=== PATIENT | female | born 1940 | race Caucasian/White ===

== ENCOUNTER → 2017-10-25 | Outpatient (CLI) | payer MEDICARE ==
[2014-12-31 15:00] VITALS: BP 110/56
[~2017-10-25] MED LIST: ALPR0.25 PO; ASPI-630 PO; CALC-30 PO; CETI10TA30 PO; CHOL2000 PO; DULO60CA6 PO; FLUT16SP2 NS; HYDR-2762 PO; LOSA1TAB25 PO; MAGN250T10 PO; METO-247 PO; OMEG1CAP6 PO; PANT40GR PO; POTASSIUM CHLO10 MEQ PO; SIMV20TA3 PO; TIOT18CA IH; VENTOLIN HFA18 GM INH
--- NOTE | 2017-10-25 15:44 | KCIC ---
Left Lower Extremity Venous Doppler Ultrasound Indication: Left lower extremity swelling. Comparison: None. Procedure: Color Doppler, spectral Doppler, and grayscale images with and without compression are obtained in the area of the common femoral vein, superficial femoral vein - femoral vein junction, main femoral vein (superficial femoral vein) and popliteal vein. Veins of the proximal calf are also imaged. Findings: There is normal duplex flow, color flow and compressibility of all visualized vein segments. There is no evidence of deep venous thrombosis. Impression: No evidence of left lower extremity deep venous thrombosis. Electronically signed by: Jose Caceres MD (10/25/2017 3:41 PM) [place] [id number]
== END | disposition home or self-care (01) ==
LOC: KCIC US 14:34
PROVIDERS: ATTEND Internal Medicine
DX: M79.89 Other specified soft tissue disorders (principal)
CPT/HCPCS: 93971

== ENCOUNTER → 2017-11-19 | Outpatient (CLI) | payer MEDICARE | END | disposition home or self-care (01) | LOC: KCIC 15:54 | DX: M19.012 Primary osteoarthritis, left shoulder (principal); M17.0 Bilateral primary osteoarthritis of knee; M25.761 Osteophyte, right knee; M25.712 Osteophyte, left shoulder | CPT/HCPCS: 73030; 73562 ==

== ENCOUNTER → 2017-11-24 | Outpatient (CLI) | payer MEDICARE | END | disposition home or self-care (01) | LOC: KCIC CT 12:32 | DX: G31.89 Other specified degenerative diseases of nervous system (principal); R90.82 White matter disease, unspecified | CPT/HCPCS: 70450 ==

== ENCOUNTER → 2018-11-07 | Outpatient (CLI) | payer MEDICARE ==
[2014-12-31 15:00] VITALS: BP 110/56
[~2018-11-07] MED LIST changes: -HYDR-2762 PO; +HYDR-2765 PO; +POTA10TA12 PO; -POTASSIUM CHLO10 MEQ PO
--- NOTE | 2018-11-07 16:46 | KCIC ---
3 view study of the right ankle Clinical indications: Open wound of the medial aspect of the right ankle. FINDINGS: Diffuse soft tissue swelling is seen. There is soft tissue defect of the medial aspect of the right ankle at the level of the distal tibial metaphysis. This is consistent with an open wound. No underlying lytic process is seen. No acute fracture is evident. There is mild periosteal reaction of the lateral aspect of the lateral malleolus. The mortise ankle joint is intact. Small plantar spur of the calcaneus is evident. IMPRESSION: No osteomyelitis is seen radiographically. Electronically signed by: James King MD (11/07/2018 4:42 PM) [facility]
== END | disposition home or self-care (01) ==
LOC: KCIC 15:19
PROVIDERS: ATTEND Internal Medicine
DX: S91.001D Unspecified open wound, right ankle, subsequent encounter (principal); M77.31 Calcaneal spur, right foot; R22.41 Localized swelling, mass and lump, right lower limb; X58.XXXD Exposure to other specified factors, subsequent encounter
CPT/HCPCS: 73610

== ENCOUNTER → 2018-11-08 | Outpatient (CLI) | payer MEDICARE ==
[2014-12-31 15:00] VITALS: BP 110/56
--- NOTE | 2018-11-08 16:23 | KCIC ---
Right lower extremity venous doppler ultrasound Indication: Right lower leg wound. Swelling. Technique: Color Doppler, grayscale, and spectral waveform analysis is used to evaluate the right femoral and popliteal veins. Findings: No evidence of deep venous thrombosis. Normal response to augmentation, normal compressibility and normal phasicity is demonstrated. Visualized calf veins are patent. Impression: Negative for deep venous thrombosis Electronically signed by: Jose Laboy MD (11/08/2018 4:19 PM) [facility]
== END | disposition home or self-care (01) ==
LOC: KCIC US 15:16
PROVIDERS: ATTEND Internal Medicine
DX: S81.801D Unspecified open wound, right lower leg, subsequent encounter (principal); R60.9 Edema, unspecified; X58.XXXD Exposure to other specified factors, subsequent encounter
CPT/HCPCS: 93971

== ENCOUNTER → 2018-11-09 | Outpatient (CLI) | payer MEDICARE ==
[2014-12-31 15:00] VITALS: BP 110/56
--- NOTE | 2018-11-09 17:33 | KCIC ---
Right lower extremity arterial Doppler ultrasound HISTORY: Nonhealing open wound right leg TECHNIQUE: Color Doppler, grayscale and duplex analysis performed of the right lower extremity arterial structures, from the common femoral artery through the runoff vessels. COMPARISON: None are available Findings: All velocity measurements are in centimeters per second. Mostly biphasic waveforms are identified. Right common femoral artery velocity is 272 and proximal superficial femoral artery velocity 264. Mid superficial femoral and distal superficial femoral artery velocities are 174 and 144, and popliteal artery velocity 103. The peroneal artery velocity increases, to 193. Scattered plaque is identified. IMPRESSION: 1. Mostly biphasic waveforms. Somewhat elevated velocities of the right common and superficial femoral arteries. 2. Increased velocity of the peroneal artery suggests a proximal stenosis. Electronically signed by: Jose Laboy MD (11/09/2018 5:29 PM) [facility]
== END | disposition home or self-care (01) ==
LOC: KCIC US 11:04
PROVIDERS: ATTEND Internal Medicine
DX: S81.801D Unspecified open wound, right lower leg, subsequent encounter (principal); I70.201 Unspecified atherosclerosis of native arteries of extremities, right leg; Z87.891 Personal history of nicotine dependence; X58.XXXD Exposure to other specified factors, subsequent encounter
CPT/HCPCS: 93926

== ENCOUNTER → 2019-04-10 | Outpatient (CLI) | payer MEDICARE ==
[2014-12-31 15:00] VITALS: BP 110/56
--- NOTE | 2019-04-11 09:49 | KCIC ---
EXAM: PA and Lateral Views of the Chest DATE: 04/10/2019 12:00 AM INDICATION: COPD, history of breast cancer COMPARISON: No Prior FINDINGS: Heart is not enlarged. Aorta is mildly tortuous. Emphysematous changes are seen bilaterally. 4 mm nodule projecting of the right lower lung can be correlated with prior CT if available.No pleural effusion or pneumothorax. Mild wedging deformity of a lower thoracic vertebral body, age-indeterminate compression fracture. IMPRESSION: 1. Emphysematous changes are seen. 2. Nodule projecting over the right lower lung can be correlated with prior CTs available. Otherwise further evaluation with CT is recommended. 3. No lobar consolidation. Electronically signed by: Juan Pablo Man MD (04/10/2019 4:49 PM) [facility]
== END | disposition home or self-care (01) ==
LOC: KCIC 13:32
PROVIDERS: ATTEND Internal Medicine
DX: J43.9 Emphysema, unspecified (principal); R91.1 Solitary pulmonary nodule; M43.8X4 Other specified deforming dorsopathies, thoracic region; Z85.3 Personal history of malignant neoplasm of breast
CPT/HCPCS: 71046

== ENCOUNTER → 2021-04-04 | Outpatient (CLI) | payer MEDICARE ==
[2014-12-31 15:00] VITALS: BP 110/56
[~2021-04-04] MED LIST changes: +SIMV20TA18 PO; -SIMV20TA3 PO
--- NOTE | 2021-04-04 10:26 | KCIC ---
CHEST CT WITHOUT CONTRAST-CT low-dose lung screening CLINICAL INDICATIONS: Smoker for 50 years. COPD/emphysema. Lung cancer screening. TECHNIQUE: Noncontrast helical CT scanning of the chest was performed. Without IV contrast, the sensi tivity to detect organ pathology is decreased. PQRS compliance Statement One or more of the following individualized dose reduction techniques were utilized for this study: 1. Automated exposure control 2. Adjustment of the mA and/or kV according to patient size 3. Use of iterative reconstruction technique COMPARISON: Chest CT dated September 13, 2012. FINDINGS: There is a new finding of a 19 mm precarinal lymph node. Calcified lymph nodes are seen wit hin the right hilum due to old granulomatous disease. The left breast is surgically absent. No enlarg ed axillary lymphadenopathy is seen. No focal aneurysmal dilatation of the thoracic aorta is seen. He art size is normal and no pericardial effusion is seen. On series 6 and image 180, there is a 6 mm no ncalcified lung nodule within the lateral segment right middle lobe. This is unchanged. On image 128 , there is a small lung nodule seen within the medial posterior right lower lobe measuring 5 mm which is unchanged. On image 149, there is a noncalcified lung nodule measuring 4 mm. This was seen previo usly and is unchanged. On 186, there is a 5 mm lung nodule within the posterior medial aspect of the right lower lobe adjacent to the spine which was seen previously and is unchanged. This is consistent with benign lung nodules since they have been present over 2 years. Calcified granulomas of the righ t lower lobe are seen. No new lung nodules or lung consolidation is seen. Bilateral centrilobular emp hysema is seen. The proximal bronchial tree is patent. There is a moderate compression fracture of T1 0 and this was seen on a previous chest x-ray dated April 10, 2019 and is old. No lytic process is seen . No adrenal mass is seen. IMPRESSION: No new lung nodule. Benign lung nodules. Lung RADS category 2. Annual screening study is recommended. Electronically signed by: James King MD (04/04/2021 10:23 AM) [id number]
== END ==
LOC: KCIC CT 08:52
PROVIDERS: ATTEND Internal Medicine Pulmonary Disease
DX: Z12.2 Encounter for screening for malignant neoplasm of respiratory organs (principal); J43.2 Centrilobular emphysema; R91.8 Other nonspecific abnormal finding of lung field; J84.10 Pulmonary fibrosis, unspecified; M48.54XD Collapsed vertebra, not elsewhere classified, thoracic region, subsequent encounter for fracture with routine healing; Z87.891 Personal history of nicotine dependence
CPT/HCPCS: 71271

== ENCOUNTER → 2021-08-29 | Outpatient (CLI) | payer MEDICARE ==
[2014-12-31 15:00] VITALS: BP 110/56
[~2021-08-29] MED LIST changes: -DULO60CA6 PO; +DULO60CA7 PO
--- NOTE | 2021-08-29 17:02 | KCIC ---
EXAM: Chest and left ribs, 4 views. HISTORY: Pain. COMPARISON: None. FINDINGS: A frontal view of the chest and 3 views of the left ribs are obtained. There are chronic ap pearing interstitial changes. There is linear lingular opacity likely due to atelectasis, infiltrate or scarring. There are calcified granulomas. The heart is normal in size. No acute fracture is seen. There is thoracolumbar scoliosis. There are cholecystectomy clips. IMPRESSION: 1. Lingular atelectasis, interstitial infiltrate or scarring. 2. No acute osseous finding. Electronically signed by: Emily Cabral MD (08/29/2021 5:00 PM) [id number]
== END ==
LOC: KCIC 16:15
PROVIDERS: ATTEND Internal Medicine
DX: J98.11 Atelectasis (principal); J84.10 Pulmonary fibrosis, unspecified; M41.85 Other forms of scoliosis, thoracolumbar region; Z90.49 Acquired absence of other specified parts of digestive tract
CPT/HCPCS: 71101

== ENCOUNTER 2021-10-15 13:15 | Inpatient (IN) | payer MEDICARE ==
[~2021-10-15] VITALS: Ht 172.7 cm; Wt 90.2 kg
[~2021-10-15 13:15] MED LIST changes: -CETI10TA30 PO; +CETI10TA31 PO
--- NOTE | 2021-10-15 13:55 | PHYS DOC ---
Past Medical History Past Medical History: Cancer, COPD, Hypertension Additional Past Medical Histor: TREMOR Past Surgical History: Cancer Surgery Additional Past Surgical Histo: BREAST, COLORECTAL Smoking Status: Never Smoker Alcohol Use: None Drug Use: None General Adult EDM: Chief Complaint: WEAKNESS/GENERALIZED HPI: HPI: Patient is an 81-year-old female that presents today for increased weakness over the last 2 weeks. Patient is not a very good historian due to be her being hard of hearing but the story that I can gather is that she lives at home with her son and over the last 2 weeks she has had increased weakness. She does have a history of COPD and is oxygen dependent at home at 2 L per nasal cannula. Patient does states that she has a history of emphysema and cancer. Patient denies chest pain, does report feeling chilled at home and having increased shortness of breath at home. Patient does state that she has received 2 Covid vaccine she is unsure of what kind or when those occurred Review of Systems: Review of Systems: Constitutional: Denies fever or chills. [] Eyes: Denies change in visual acuity. [] HENT: Denies nasal congestion or sore throat. [] Respiratory: shortness of breath. [] Cardiovascular: Denies chest pain or edema. [] GI: Denies abdominal pain, nausea, vomiting, bloody stools or diarrhea. [] : Denies dysuria. [] Musculoskeletal: Denies back pain or joint pain. [] Integument: Denies rash. [] Neurologic: Generalized weakness Endocrine: Denies polyuria or polydipsia. [] Lymphatic: Denies swollen glands. [] Psychiatric: Denies depression or anxiety. [] Heart Score: C/O Chest Pain: N/A Risk Factors: Risk Factors: DM, Current or recent (<one month) smoker, HTN, HLP, family history of CAD, obesity. Risk Scores: Score 0 - 3: 2.5% MACE over next 6 weeks - Discharge Home Score 4 - 6: 20.3% MACE over next 6 weeks - Admit for Clinical Observation Score 7 - 10: 72.7% MACE over next 6 weeks - Early Invasive Strategies Allergies: Allergies: Allergies Coded Allergies Type Severity Reaction Last Updated Verified No Known Drug Allergies 12/23/14 No Physical Exam: PE: Constitutional: moderate distress, elderly female experiencing chills [] HENT: Normocephalic, atraumatic, bilateral external ears normal, oropharynx moist, no oral exudates, nose normal. [] Eyes: PERRLA, EOMI, conjunctiva normal, no discharge. [] Neck: Normal range of motion, no tenderness, supple, no stridor. [] Cardiovascular:Heart rate regular rhythm, no murmur [] Lungs & Thorax: Bilateral breath sounds audible wheezes inspiration expiration noted. [] Abdomen: Bowel sounds hypoactive, soft, no tenderness, no masses, no pulsatile masses. [] Skin: Warm, dry, no erythema, no rash. [] Back: No tenderness, no CVA tenderness. [] Extremities: No tenderness, no cyanosis, no clubbing, ROM intact, no edema. [] Neurologic: Alert and oriented X 3, normal motor function, normal sensory function, no focal deficits noted, hard of hearing. [] Psychologic: Affect normal, judgement normal, mood normal. [] Current Patient Data: Labs: Laboratory Tests Test 10/15/21 13:25 10/15/21 13:50 White Blood Count 3.0 x10^3/uL Red Blood Count 4.16 x10^6/uL Hemoglobin 11.5 g/dL Hematocrit 35.8 % Mean Corpuscular Volume 86 fL Mean Corpuscular Hemoglobin 28 pg Mean Corpuscular Hemoglobin Concent 32 g/dL Red Cell Distribution Width 13.9 % Platelet Count 117 x10^3/uL Neutrophils (%) (Auto) 55 % Lymphocytes (%) (Auto) 26 % Monocytes (%) (Auto) 18 % Eosinophils (%) (Auto) 0 % Basophils (%) (Auto) 1 % Neutrophils # (Auto) 1.7 x10^3/uL Lymphocytes # (Auto) 0.8 x10^3/uL Monocytes # (Auto) 0.6 x10^3/uL Eosinophils # (Auto) 0.0 x10^3/uL Basophils # (Auto) 0.0 x10^3/uL Platelet Estimate Pending Sodium Level 140 mmol/L Potassium Level 4.0 mmol/L Chloride Level 103 mmol/L Carbon Dioxide Level 29 mmol/L Anion Gap 8 Blood Urea Nitrogen 14 mg/dL Creatinine 0.8 mg/dL Estimated GFR (Cockcroft-Gault) 68.5 BUN/Creatinine Ratio 18 Glucose Level 96 mg/dL Lactic Acid Level 0.6 mmol/L Calcium Level 8.3 mg/dL Total Bilirubin 0.4 mg/dL Aspartate Amino Transf (AST/SGOT) 32 U/L Alanine Aminotransferase (ALT/SGPT) 27 U/L Alkaline Phosphatase 70 U/L Troponin I High Sensitivity 22 ng/L [id number]-Type Natriuretic Peptide 752 pg/mL Total Protein 6.0 g/dL Albumin 3.0 g/dL Albumin/Globulin Ratio 1.0 Influenza Type A Antigen Negative Influenza Type B Antigen Negative SARS-CoV-2 Antigen (Rapid) Positive Vital Signs: Vital Signs Date Time Temp Pulse Resp B/P (MAP) Pulse Ox O2 Delivery O2 Flow Rate FiO2 10/15/21 22:31 98.5 18 18 177/62 (100) 98 Room Air 98.5 10/15/21 20:00 Nasal Cannula 2.0 10/15/21 19:00 98.6 84 18 157/64 (95) 96 Room Air 98.6 10/15/21 15:22 82 22 171/72 (105) 97 Nasal Cannula 2.0 10/15/21 14:45 76 26 175/75 (108) 98 Nasal Cannula 2.0 10/15/21 14:18 81 24 182/73 (109) 96 2.0 10/15/21 13:15 99.0 85 22 179/81 (113) 96 Room Air 99.0 Vital Signs Date Time Temp Pulse Resp B/P (MAP) Pulse Ox O2 Delivery O2 Flow Rate FiO2 10/15/21 13:15 99.0 85 22 179/81 (113) 96 Room Air 99.0 EKG: EKG: [] Radiology/Procedures: Radiology/Procedures: REASON: SOA PROCEDURE: CHEST AP ONLY Exam Date: 10/15/2021 1:57 PM XR CHEST 1V Indication: Reason: SOA / Spl. Instructions: / History: . Comparison: August 29, 2021 FINDINGS/ IMPRESSION: The aorta is calcified. The cardiac silhouette is borderline enlarged without congestion. Prominent interstitial markings are again seen bilaterally, likely chronic. Superimposed interstitial edema or pneumonia cannot be excluded. No pleural effusion or pneumothorax. Electronically signed by: Barndon Gray MD (10/15/2021 2:44 PM) [facility] Course & Med Decision Making: Course & Med Decision Making Pertinent Labs and Imaging studies reviewed. (See chart for details) 1500 spoke to nursing staff patient is unable to take care of herself she is needing total assistance with the nursing staff today because she is too weak from her illness. We will contact Dr. Rios for admission and medical management [id number] Rios and he is agreeable with admission to the hospital Drag Disclaimer: Patrica Disclaimer: This electronic medical record was generated, in whole or in part, using a voice recognition dictation system. Departure Departure Impression: Primary Impression: COVID-19 Additional Impressions: COPD exacerbation Weakness Disposition: ADMITTED INPATIENT Condition: GUARDED Referrals: MERON RIOS MD (PCP) JULY WRIGHT TRAFFIC CONTROL OFFICER Oct 15, 2021 13:55
[2021-10-15 14:02] LABS: BASO % 1 % (0-3); EOS % 0 % (0-3); HEMATOCRIT 35.8 % (36.0-47.0); HEMOGLOBIN 11.5 g/dL (12.0-15.5); LYMPH # 0.8 x10^3/uL (1.0-4.8); LYMPH % 26 % (24-48); MEAN CORPUSCULAR HEMOGLOBIN 28 pg (25-35); MEAN CORPUSCULAR HGB CONC 32 g/dL (31-37); MEAN CORPUSCULAR VOLUME 86 fL (79-100); MONO # 0.6 x10^3/uL (0.0-1.1); MONO % 18 % (0-9); NEUT # 1.7 x10^3/uL (1.8-7.7); NEUT % 55 % (31-73); PLATELET COUNT 117 x10^3/uL (140-400); RED BLOOD COUNT 4.16 x10^6/uL (3.50-5.40); RED CELL DISTRIBUTION WIDTH 13.9 % (11.5-14.5)
[2021-10-15 14:08] LABS: CALCIUM 8.3 mg/dL (8.5-10.1); CREATININE 0.8 mg/dL (0.6-1.0); GFR 68.5
[2021-10-15 14:14] LABS: TOTAL BILIRUBIN 0.4 mg/dL (0.2-1.0)
[2021-10-15 14:20] LABS: INFLUENZA A PATIENT NEGATIVE (NEGATIVE); INFLUENZA B PATIENT NEGATIVE (NEGATIVE)
--- NOTE | 2021-10-15 14:46 | RAD ---
Exam Date: 10/15/2021 1:57 PM XR CHEST 1V Indication: Reason: SOA / Spl. Instructions: / History: . Comparison: August 29, 2021 FINDINGS/ IMPRESSION: The aorta is calcified. The cardiac silhouette is borderline enlarged without congestion. Prominent interstitial markings ar e again seen bilaterally, likely chronic. Superimposed interstitial edema or pneumonia cannot be exc luded. No pleural effusion or pneumothorax. Electronically signed by: Brandon Gray MD (10/15/2021 2:44 PM) [facility]
--- NOTE | 2021-10-15 15:25 | EKG ---
[facility] [address] [place] [address] Test Date: 2021-10-15 Test Time: 13:51:49 Pat Name: DAISY FORREST Department: Room: Gender: F Security Tester: : 1940 Requested By: JULY WIRGHT Order Number: [id number] Reading MD: David Aguirre Measurements Intervals Rolfe Rate: 83 P: 51 CO: 174 QRS: 2 QRSD: 120 T: 91 QT: 366 QTc: 436 Interpretive Statements SINUS RHYTHM QRS(T) CONTOUR ABNORMALITY NONSPECIFIC ST T WAVE CHANGES SEPTAL INFARCT Electronically Signed On 10-20-2021 10:47:36 PROCESS DESIGNER by David Aguirre
[2021-10-15] MEDS ORDERED: DEXAMETHASONE SOD PHOS 20 MG/5 ML VIAL. IV ONE (15:30)
[2021-10-15] MEDS ORDERED: ACETAMINOPHEN 325 MG TABLET. PO PRN (15:45)
[2021-10-15 16:11] LABS: % ATYL 1 % (0-0); % BANDS 15 % (0-9); % LYMPHS 21 % (24-48); % MONOS 13 % (0-10); % SEGS 50 % (35-66)
[2021-10-15 16:12] LABS: PLT ESTIMATE DECREASED (ADEQUATE)
[2021-10-15 19:00] VITALS: BP 157/64
--- NOTE | 2021-10-15 19:04 | NUR ---
The patient, DAISY FORREST, 81 y/o, F admitted by MERON RIOS MD, was given written information regarding hospital policies, unit procedures and contact persons. Valuables were checked and left in room.
[2021-10-15 22:31] VITALS: BP 177/62
[2021-10-16 03:08] VITALS: BP 199/68
[2021-10-16 07:00] VITALS: BP 186/78
[2021-10-16] MEDS ORDERED: NON FORMULARY ITEM (Albuterol Sulfate (Ventolin Hfa Inhaler) 2 PUFF) INH PRN (09:00)
[2021-10-16] MEDS ORDERED: OMEGA-3 FATTY ACIDS/FISH OIL 1,000 MG CAPSULE. PO SCH (09:00)
[2021-10-16] MEDS ORDERED: NON FORMULARY ITEM (Losartan/Hydrochlorothiazide (Losartan-Hctz 100-12.5 Mg Tab) 1 EACH) PO SCH (09:00)
[2021-10-16] MEDS ORDERED: FLUTICASONE 50MCG/NASAL SPRAY 16GM BOTTLE. NS PRN (09:00)
[2021-10-16] MEDS ORDERED: ALBUTEROL SULFATE 2.5 MG/3 ML NEBU. NEB PRN (09:15)
[2021-10-16] MEDS: ASPIRIN CHEWABLE 81 MG TABLET. PO SCH (09:50)
[2021-10-16] MEDS: hydroCHLOROthiazide 12.5 MG CAPSULE PO SCH (09:55)
[2021-10-16] MEDS: ALPRAZolam 0.25 MG TABLET PO SCH ×2 (09:55→20:01)
[2021-10-16] MEDS: CALCIUM CARB/VIT D3 500/200 TABLET. PO SCH (09:56)
[2021-10-16] MEDS: LOSARTAN POTASSIUM 50 MG TABLET. PO SCH (09:56)
[2021-10-16] MEDS: DULoxetine HCL 30 MG CAPSULE.DR PO SCH (09:57)
[2021-10-16] MEDS: POTASSIUM CHLORIDE 10 MEQ TABLET.ER. PO SCH (09:57)
[2021-10-16] MEDS: CETIRIZINE HCL 10 MG TABLET. PO SCH (09:58)
[2021-10-16] MEDS: MAGNESIUM OXIDE 400 MG TABLET PO SCH ×2 (09:58→20:02)
[2021-10-16] MEDS: PANTOPRAZOLE 40 MG TABLET.DR. PO SCH (09:58)
[2021-10-16] MEDS: CHOLECALCIFEROL (VITAMIN D3) 1,000 UNIT TABLET PO SCH (09:58)
--- NOTE | 2021-10-16 10:02 | CONS ---
DATE OF CONSULTATION: 10/16/2021 PULMONARY CONSULTATION ATTENDING PHYSICIAN: Tory Henley MD. REASON FOR CONSULTATION: COVID-19 pneumonia. HISTORY OF PRESENT ILLNESS: The patient is an 81-year-old female who has a history of COPD. She is on home oxygen at 2 liters. She was brought into the hospital with complaint of increased weakness for the last 2 weeks. She denies any chest pain. She has no significant cough, no fever, no chills. She was having some mild shortness of breath. She said she did receive COVID vaccine. No nausea, vomiting, no diarrhea, no dysuria. Her COVID test came back positive. Her chest x-ray was reviewed, shows slightly faint interstitial infiltrates. RN has just reported that she also has positive blood cultures. PAST MEDICAL HISTORY: Significant for COPD, history of chronic hypoxic respiratory failure. Dyslipidemia. History of GERD. PAST SURGICAL HISTORY: No recent surgeries. ALLERGIES: None. MEDICATIONS: Reviewed as listed in the MRAD. REVIEW OF SYSTEMS: A 12-point review of system obtained. Pertinent positives discussed in my present illness, otherwise noncontributory. All systems that were negative were reviewed as well. She is very hard of hearing. SOCIAL HISTORY: Has history of tobacco use in the past, no longer smokes. FAMILY HISTORY: Noncontributory to lungs. PHYSICAL EXAMINATION: VITAL SIGNS: Reviewed. She is afebrile. Pulse ox is 99% on room air. Visual exam done due to COVID-19. Blood pressure has been high, last systolic was 186. No obvious respiratory distress. EXTREMITIES: No leg edema, no skin rash. LABORATORY DATA: Reviewed. COVID-19 is positive. BUN and creatinine normal. White cell count 3.0, hemoglobin 11.5 and platelets are 117. Blood cultures 1/4 positive for gram-positive rods. Branching filaments. IMPRESSION: 1. Dyspnea secondary to COVID-19 viral pneumonia. 2. The patient with chronic obstructive pulmonary disease, on home oxygen at 2 liters. Oxygen requirement has not changed. At this time, we will withhold any steroids. 3. Bacteremia. Await final cultures. Infectious Disease has been consulted. 4. History of chronic obstructive pulmonary disease. 5. Abnormal chest x-ray with faint interstitial infiltrates suggestive of COVID-19 viral pneumonia. RECOMMENDATIONS: 1. We will continue to monitor respiratory status. At present, she is compensated at the baseline oxygen at 2 liters. 2. We will withhold steroids at present until oxygen requirement changes. 3. Continue DuoNebs. 4. Follow final blood cultures. 5. Follow Infectious Disease recommendations. 6. Continue home medications. 7. Add DVT prophylaxis. 8. Discussed with RN. Pulmonary status is stable. We will follow as needed. ECHO DR: Odalys TID: [id number]
[2021-10-16] MEDS: ENOXAPARIN 40 MG/0.4 ML SYRINGE. SQ SCH (10:14)
[2021-10-16] MEDS: OMEGA-3 FATTY ACIDS/FISH OIL 1,000 MG CAPSULE. PO SCH (10:18)
[2021-10-16] MEDS: METOPROLOL SUCC 24HR ER 100 MG TAB.ER.24H. PO SCH (10:20)
[2021-10-16] MEDS: IPRATROPIUM/ALBUTEROL 20/100mcg/INH INHALER. INH SCH ×3 (10:21→20:02)
[2021-10-16] MEDS: HYDROcodone/APAP 7.5/325MG 1 TAB TABLET PO PRN (10:22)
[2021-10-16 11:00] VITALS: BP 191/81
--- NOTE | 2021-10-16 11:19 | PDOC ---
Provider Note Date of Service: DATE: 10/16/21 TIME: 11:18 Provider Note H&P dictated #[id number] Justifications for Admission Other Justification MERON RIOS MD Oct 16, 2021 11:19
--- NOTE | 2021-10-16 11:37 | CONS ---
DATE OF CONSULTATION: 10/16/2021 REFERRING PHYSICIAN: Dr. Henley. REASON FOR CONSULTATION: Bacteremia, antibiotic management. HISTORY OF PRESENT ILLNESS: An 81-year-old female who had received two doses of COVID vaccine was supposed to get her booster dose presented to the ER on 10/15/2021 with increased weakness and myalgia over the last week. The patient is hard of hearing. She is not a good historian. The patient had been to her niece's 2 days prior, but continued to feel weak as above. Her son insisted on bringing the patient to the ER. She has a history of COPD, on O2 at 2 liters nasal cannula at home. She had some shortness of breath, headache, some soreness in her neck glands. She also has diarrhea, which is chronic, decreased appetite. No sick contact, no recent travel. She denies any fevers, chills, symptoms. White count in the ER was 3.0, hemoglobin of 11.5, platelets of 117, bands of 15, lymphopenia. BNP of 752. Influenza screen negative. SARS-COVID positive. Chest x-ray revealed prominent interstitial markings. Blood cultures done on admission, 1 out of 4 bottles has gram-positive rods with branching filaments. ID consultation is requested for further evaluation and treatment. The patient is currently on no antibiotics. Today, she feels the same. Does not feel like eating. Continues to have generalized aches and pain. She remains on 2 liters O2 by nasal cannula. PAST MEDICAL HISTORY: COPD, history of hypoxic respiratory failure, hyperlipidemia, GERD. SURGICAL HISTORY: None. ALLERGIES: None. SOCIAL HISTORY: Denies smoking, though had history of tobacco use in the past. No alcohol. Lives with her family. REVIEW OF SYSTEMS: Negative except for above in the HPI. The patient has severe hearing loss. FAMILY HISTORY: As per HPI. PHYSICAL EXAMINATION: VITAL SIGNS: Temperature 98.4, pulse 67, respiratory rate 18, blood pressure 186/78, oxygen saturation 99% on 2 liters O2 by nasal cannula. GENERAL: Alert, oriented x 3 female, hard of hearing, lying in bed comfortably, appears tired. HEENT: Normocephalic, atraumatic. Anicteric. NECK: Supple, no JVD, no lymphadenopathy. LUNGS: Decreased breath sounds at the bases. No wheezing. HEART: S1, S2. No murmurs. ABDOMEN: Soft, obese. Bowel sounds present, nontender, nondistended. EXTREMITIES: No edema, no cyanosis. DERMATOLOGIC: Warm, dry, no generalized rash. NEUROLOGIC: Alert, oriented x 3, grossly nonfocal. Hard of hearing. PSYCHIATRIC: Appropriate, calm. LABORATORY DATA: SARS-COVID rapid positive. Influenza screen negative. WBC 3.0, hemoglobin 11.5, hematocrit 35.8, platelets 117, bands 15. Sodium 140, potassium 4.0, chloride 103, bicarb 29, BUN 14, creatinine 0.8. Lactate 0.6, calcium 8.3. BNP 752. IMAGING: Chest x-ray shows prominent interstitial markings, likely chronic bilaterally. IMPRESSION: 1. Bacteremia, GPR with filaments, 1 out of 4 bottles present on admission, final ID and JOSE pending, differential diagnosis could be rare bacterial infection with Nocardia versus Actinomyces versus contamination. 2. Dyspnea, likely from COVID-19 pneumonia. 3. Chronic obstructive pulmonary disease, chronic respiratory failure, on home O2 at 2 liters unchanged at this time. 4. Leukopenia. 5. Bandemia. 6. Generalized weakness and myalgias. RECOMMENDATIONS: 1. Start Zosyn and Bactrim. 2. Monitor renal functions closely. 3. Continue supportive care. 4. Pulmonary team following. 5. Repeat blood cultures in a.m. D/W RN Thank you, Dr. Henley, for consulting Infectious Disease to participate in this patient's care. If you have any questions, do not hesitate to contact me. SANJEEV/YANET DONALDSON: Gilles TID: [id number] [facility]
--- NOTE | 2021-10-16 12:19 | HP ---
DATE OF SERVICE: 10/16/2021 ADMIT DATE: 10/15/2021 HISTORY OF PRESENT ILLNESS: This 81-year-old female who has multiple medical problems including COPD, emphysema, gastroesophageal reflux disease, hypertension, diabetes, dementia, worsening tremors and who was seen in my office 2 weeks ago for management of her chronic pain and arthritis, started getting sick this weekend about 5 days ago. She started having cough and congestion when they called our office. At the beginning of the week, she was advised to go to the emergency room, but she did not want to go, so she came to the hospital yesterday because of cough, congestion and dyspnea getting worse. She was noted to be COVID positive. She is vaccinated, but has not taken the booster injection yet. At home, she is on 2 liters of oxygen for chronic respiratory failure secondary to COPD. Because of the COVID-19 infection with exacerbation of COPD and respiratory failure and with her multiple medical problems, the patient was admitted for further evaluation and management. The patient states that she does not taste food well. She is not sure who she was exposed to, although over the weekend, she did attend the of her cousin who had COVID infection. She is forgetful and not a good historian and unable to provide complete information. SYSTEMS REVIEW: The patient does admit to occasional cough. She denies any fever, chills, nausea or vomiting. She does not taste food well. She denies any chest pains, palpitations or dizziness. She has chronic weakness, joint pains and tremors. She is a poor historian. Other systems reviewed and are negative. PAST MEDICAL HISTORY: The patient has history of hypertension with chronic kidney disease, diabetes mellitus type 2, hyperlipidemia, peripheral artery disease, carotid artery disease, COPD, emphysema, chronic bronchitis, gastroesophageal reflux disease, gastritis, peptic ulcer disease, hiatal hernia, diverticulosis, rectal cancer in 1992, cancer of the breast, anxiety and depression, history of compression fracture lower thoracic and upper lumbar spine, arthritis, allergic rhinitis, hypothyroidism, urinary incontinence. PAST SURGICAL HISTORY: Includes breast biopsy, benign tumor x 2, left mastectomy, colon resection in 1992. She has peripheral artery disease, multinodular goiter, osteoarthritis, depression, anxiety, chronic pain, urinary incontinence. FAMILY HISTORY: Brother had lung cancer, . Brother had prostate cancer. Father, lung cancer, . SOCIAL HISTORY: , lives with son. History of smoking. No history of alcoholism or drug abuse. ALLERGIES: AMOXICILLIN CAUSES DIARRHEA, ACTUALLY IT WAS BECAUSE OF THE AUGMENTIN. SHE HAS ALLERGIES TO CODEINE, CHANTIX THAT CAUSED DEPRESSION, AGITATION AND ANXIETY. MEDICATIONS: Reviewed and reconciled. PHYSICAL EXAMINATION: VITAL SIGNS: Temperature 98.5, pulse 68 per minute, respirations 16 per minute, blood pressure max was 199/68, then it was 191/81 mmHg. GENERAL: The patient is an elderly female who is alert, oriented, but forgetful, anxious and not in acute distress. EYES: Pupils reactive to light. Conjunctivae pale. Sclerae muddy. HENT: Mild congestion of throat. The patient is wearing oxygen by nasal cannula 2 liters per minute. NECK: Supple. JVP normal. No thyromegaly. Trachea midline. LUNGS: Decreased breath sounds at bases. CARDIOVASCULAR: S1, S2, regular. ABDOMEN: Soft, nontender, no guarding, no rigidity. Bowel sounds present. EXTREMITIES: No edema, no cyanosis, no calf tenderness. CENTRAL NERVOUS SYSTEM: Alert and oriented, forgetful and anxious. Generalized weakness. LABORATORY FINDINGS: Sodium 140, potassium 4, BUN 14, creatinine 0.8, albumin 3, AST 32, ALT 27. BNP is 752. WBC count 3, hemoglobin 11.5, platelet count is 117,000. Chest x-ray shows prominent interstitial markings, likely chronic superimposed interstitial edema or pneumonia cannot be excluded. No pleural effusion or pneumothorax. Blood culture 1 out of 4 shows gram-positive rods with branching filaments. IMPRESSION: 1. COVID-19 pneumonia. 2. Sepsis with abnormal blood culture. 3. Acute on chronic respiratory failure. 4. Chronic obstructive pulmonary disease exacerbation. 5. Hypertension. 6. Diabetes mellitus type 2. 7. Peripheral artery disease. 8. Gastroesophageal reflux disease. 9. Hypothyroidism and high thyroid goiter. 10. History of hiatal hernia. 11. History of gastritis. 12. History of colon cancer and breast cancer. 13. Dementia. 14. Tremors. 15. Anxiety. 16. Depression. 17. Osteoarthritis and chronic pain. PLAN: 1. COVID-[address] Dorsey. The patient's oxygen requirements have not changed, so he does not feel that she needs more steroids at this time. She was given a dose of steroid in the emergency room. Continue observation. 2. Possible sepsis with gram-positive rods with branching filaments. Consulted Dr. Meagan Sanz for Infectious Disease evaluation and management. The patient has been started on IV Zosyn and Bactrim DS. 3. Diabetes mellitus type 2. Continue to monitor. 4. Hypertension, not controlled. We will order IV p.r.n. hydralazine. 5. Osteoarthritis. Continue pain medications. For details, please refer to the orders. Long-term as well as short-term prognosis of this patient is very poor due to her multiple medical problems. EDITH/NIS DR: EDITH/adelina TID: [id number]
[2021-10-16] MEDS ORDERED: IPRATRPIUM/ALBUTEROL 0.5/2.5MG 3 ML NEBU. NEB SCH (13:00)
[2021-10-16] MEDS: PIPERACILLIN/TAZOBACTAM 3.375 GM in IV NORMAL SALINE 50ML 50 ML IV SCH ×3 (14:10→23:32)
[2021-10-16] MEDS: SMZ/TMP 800/160MG TABLET. PO SCH ×2 (14:11→20:02)
[2021-10-16 15:00] VITALS: BP 170/54
[2021-10-16] MEDS: INSULIN LISPRO 300 UNITS/3 ML VIAL. SQ SCH (16:30)
[2021-10-16 19:00] VITALS: BP 211/102
[2021-10-16] MEDS: hydrALAZINE 20 MG/ML VIAL. IVP PRN (20:01)
[2021-10-16] MEDS: LACTOBACILLUS RHAMNOSUS GG 1 CAPSULE. PO SCH (20:02)
[2021-10-16] MEDS: SIMVASTATIN 20 MG TABLET PO SCH (20:02)
[2021-10-16] MEDS ORDERED: ONDANSETRON PF 4 MG/2 ML VIAL. IVP PRN (21:15)
[2021-10-16 23:52] VITALS: BP 183/51
[2021-10-17 03:00] VITALS: BP 182/81
[2021-10-17] MEDS: PIPERACILLIN/TAZOBACTAM 3.375 GM in IV NORMAL SALINE 50ML 50 ML IV SCH ×3 (06:23→17:49)
[2021-10-17 07:00] VITALS: BP 165/72
[2021-10-17] MEDS: INSULIN LISPRO 300 UNITS/3 ML VIAL. SQ SCH ×2 (07:30→16:30)
[2021-10-17] MEDS: IPRATROPIUM/ALBUTEROL 20/100mcg/INH INHALER. INH SCH ×4 (08:00→20:13)
[2021-10-17 08:25] LABS: BASO % 0 % (0-3); EOS % 0 % (0-3); HEMATOCRIT 37.2 % (36.0-47.0); LYMPH # 0.8 x10^3/uL (1.0-4.8); LYMPH % 22 % (24-48); MEAN CORPUSCULAR HEMOGLOBIN 28 pg (25-35); MEAN CORPUSCULAR HGB CONC 32 g/dL (31-37); MEAN CORPUSCULAR VOLUME 86 fL (79-100); MONO # 0.5 x10^3/uL (0.0-1.1); MONO % 15 % (0-9); NEUT # 2.3 x10^3/uL (1.8-7.7); NEUT % 63 % (31-73); PLATELET COUNT 118 x10^3/uL (140-400); RED BLOOD COUNT 4.34 x10^6/uL (3.50-5.40); RED CELL DISTRIBUTION WIDTH 13.7 % (11.5-14.5); WHITE BLOOD COUNT 3.6 x10^3/uL (4.0-11.0)
[2021-10-17 08:42] LABS: ALBUMIN 2.9 g/dL (3.4-5.0); ALBUMIN/GLOBULIN RATIO 0.9 (1.0-1.7); CALCIUM 8.2 mg/dL (8.5-10.1); CREATININE 1.1 mg/dL (0.6-1.0); GFR 47.4; MAGNESIUM 1.9 mg/dL (1.8-2.4); TOTAL BILIRUBIN 0.5 mg/dL (0.2-1.0); TOTAL PROTEIN 6.1 g/dL (6.4-8.2)
[2021-10-17] MEDS: OMEGA-3 FATTY ACIDS/FISH OIL 1,000 MG CAPSULE. PO SCH ×2 (09:00→10:51)
[2021-10-17] MEDS: hydroCHLOROthiazide 12.5 MG CAPSULE PO SCH (09:00)
[2021-10-17] MEDS: POTASSIUM CHLORIDE 10 MEQ TABLET.ER. PO SCH (09:00)
[2021-10-17] MEDS: ALPRAZolam 0.25 MG TABLET PO SCH ×2 (09:00→21:00)
--- NOTE | 2021-10-17 09:17 | PDOC ---
IM PROGRESS NOTES- Subjective Subjective Has some cough and congestion. She had significant nausea yesterday evening. Denies any diarrhea. No complaints of vomiting. Objective Vitals/I&O Vital Signs Date Time Temp Pulse Resp B/P (MAP) Pulse Ox O2 Delivery O2 Flow Rate FiO2 10/17/21 07:00 100.5 77 20 165/72 (103) 97 Nasal Cannula 3.0 100.5 I & O 10/16/21 10/16/21 10/17/21 15:00 23:00 07:00 Intake Total 75 ml 230 ml 100 ml Balance 75 ml 230 ml 100 ml Physical Exam Physical Exam General Appearance - alert and in mild distress. Chronically ill. Chest - decreased breath sounds at bases, occasional rhonchi. Heart - S1 and S2 normal Abdomen - soft, non tender Neurological - alert and oriented, more confused Musculoskeletal - generalized weakness Extremities - no edema Labs Laboratory Tests Test 10/16/21 17:02 10/16/21 21:01 10/17/21 07:35 10/17/21 07:45 Glucose (Fingerstick) 89 mg/dL (70-99) 83 mg/dL (70-99) 79 mg/dL (70-99) White Blood Count 3.6 x10^3/uL (4.0-11.0) L Red Blood Count 4.34 x10^6/uL (3.50-5.40) Hemoglobin 12.0 g/dL (12.0-15.5) Hematocrit 37.2 % (36.0-47.0) Mean Corpuscular Volume 86 fL (79-100) Mean Corpuscular Hemoglobin 28 pg (25-35) Mean Corpuscular Hemoglobin Concent 32 g/dL (31-37) Red Cell Distribution Width 13.7 % (11.5-14.5) Platelet Count 118 x10^3/uL (140-400) L Neutrophils (%) (Auto) 63 % (31-73) Lymphocytes (%) (Auto) 22 % (24-48) L Monocytes (%) (Auto) 15 % (0-9) H Eosinophils (%) (Auto) 0 % (0-3) Basophils (%) (Auto) 0 % (0-3) Neutrophils # (Auto) 2.3 x10^3/uL (1.8-7.7) Lymphocytes # (Auto) 0.8 x10^3/uL (1.0-4.8) L Monocytes # (Auto) 0.5 x10^3/uL (0.0-1.1) Eosinophils # (Auto) 0.0 x10^3/uL (0.0-0.7) Basophils # (Auto) 0.0 x10^3/uL (0.0-0.2) Sodium Level 140 mmol/L (136-145) Potassium Level 4.0 mmol/L (3.5-5.1) Chloride Level 102 mmol/L (98-107) Carbon Dioxide Level 29 mmol/L (21-32) Anion Gap 9 (6-14) Blood Urea Nitrogen 17 mg/dL (7-20) Creatinine 1.1 mg/dL (0.6-1.0) H Estimated GFR (Cockcroft-Gault) 47.4 BUN/Creatinine Ratio 15 (6-20) Glucose Level 87 mg/dL (70-99) Calcium Level 8.2 mg/dL (8.5-10.1) L Magnesium Level 1.9 mg/dL (1.8-2.4) Total Bilirubin 0.5 mg/dL (0.2-1.0) Aspartate Amino Transferase (AST) 30 U/L (15-37) Alanine Aminotransferase (ALT) 26 U/L (14-59) Alkaline Phosphatase 61 U/L (46-116) Total Protein 6.1 g/dL (6.4-8.2) L Albumin 2.9 g/dL (3.4-5.0) L Albumin/Globulin Ratio 0.9 (1.0-1.7) L Laboratory Tests 10/17/21 07:45 Laboratory Tests 10/17/21 07:45 Meds Current Medications Medications (Trade) Dose Ordered Sig/Mian Route PRN Reason Start Time Stop Time Status Last Admin Dose Admin Simvastatin (Zocor) 20 mg QHS PO 10/16/21 21:00 10/16/21 20:02 Calcium/Vitamin D (Oscal D 500mg/ 200uts) 1 tab DAILY PO 10/16/21 09:30 10/16/21 09:56 Cetirizine HCl (ZyrTEC) 10 mg DAILY PO 10/16/21 09:30 10/16/21 09:58 Vitamin D (Vitamin D3) 2,000 unit DAILY PO 10/16/21 09:30 10/16/21 09:58 Duloxetine HCl (Cymbalta) 60 mg DAILY PO 10/16/21 09:30 10/16/21 09:57 Magnesium Oxide (Magnesium Oxide) 200 mg BID PO 10/16/21 09:30 10/16/21 20:02 Pantoprazole Sodium (Protonix) 40 mg DAILYAC PO 10/16/21 09:30 10/16/21 09:58 Albuterol/ Ipratropium (Combivent Respimat 20-100 Mcg) 1 puff RTQID INH 10/16/21 12:00 10/16/21 20:02 Losartan Potassium (Cozaar) 100 mg DAILY PO 10/16/21 09:30 10/16/21 09:56 Hydrochlorothiazide (Microzide) 12.5 mg DAILY PO 10/16/21 09:30 10/16/21 09:55 Enoxaparin Sodium (Lovenox 40mg Syringe) 40 mg Q24H SQ 10/16/21 10:00 10/16/21 10:14 Fish Oil (Fish Oil) 1,000 mg DAILY PO 10/16/21 11:00 10/16/21 10:18 Piperacillin Sod/ Tazobactam Sod 3.375 gm/Sodium Chloride 50 ml @ 100 mls/hr Q6HRS IV 10/16/21 12:00 10/17/21 06:23 Trimethoprim/ Sulfamethoxazole (Bactrim Ds) 1 tab BID PO 10/16/21 11:00 10/16/21 20:02 Hydralazine HCl (Apresoline Inj) 10 mg PRN Q4HRS PRN IVP ELEVATED BP, SEE COMMENTS 10/16/21 11:15 10/16/21 20:01 Lactobacillus Rhamnosus (Culturelle) 1 cap BID PO 10/16/21 21:00 10/16/21 20:02 Assessment Assessment 1. COVID-19 pneumonia. 2. Sepsis with abnormal blood culture. 3. Acute on chronic respiratory failure. 4. Chronic obstructive pulmonary disease exacerbation. 5. Hypertension. 6. Diabetes mellitus type 2. 7. Peripheral artery disease. 8. Gastroesophageal reflux disease. 9. Hypothyroidism and high thyroid goiter. 10. History of hiatal hernia. 11. History of gastritis. 12. History of colon cancer and breast cancer. 13. Dementia. 14. Tremors. 15. Anxiety. 16. Depression. 17. Osteoarthritis and chronic pain. PLAN: 1. COVID-[address] Dorsey. The patient's oxygen requirements have not changed, so he does not feel that she needs more steroids at this time. She was given a dose of steroid in the emergency room. Continue observation. 2. Possible sepsis with gram-positive rods with branching filaments. Consulted Dr. Meagan Sanz for Infectious Disease evaluation and management. The patient has been started on IV Zosyn and Bactrim DS. 3. Diabetes mellitus type 2. Continue to monitor. 4. Hypertension, not controlled. We will order IV p.r.n. hydralazine. Creatinine is increasing. Patient had nausea yesterday. Hold hydrochlorothiazide and potassium chloride today. Discussed with staff. 5. Osteoarthritis. Continue pain medications. 6. Dementia with acute metabolic encephalopathy. Multifactorial. Discussed with staff. Hold Xanax this morning. For details, please refer to the orders. Long-term as well as short-term prognosis of this patient is very poor due to her multiple medical problems. Discussed with caregiver, condition treatment and options yesterday and son today. Check labs in a.m. Plan Plan For more details regarding further plans, please refer to the orders. Justifications for Admission Other Justification MERON RIOS MD Oct 17, 2021 09:17
--- NOTE | 2021-10-17 09:18 | PDOC ---
Infectious Disease Note Subjective: Subjective Patient sleepy arousable somewhat confused On 3 L O2 by nasal cannula Temperature 100.5 this morning Discussed with RN Vital Signs: Vital Signs Vital Signs Date Time Temp Pulse Resp B/P (MAP) Pulse Ox O2 Delivery O2 Flow Rate FiO2 10/17/21 07:00 100.5 77 20 165/72 (103) 97 Nasal Cannula 3.0 100.5 Physical Exam: PHYSICAL EXAM GENERAL: Sleepy but arousable female appears tired HEENT: Normocephalic, atraumatic. Anicteric. NECK: Supple, no JVD, no lymphadenopathy. LUNGS: Decreased breath sounds at the bases. No wheezing. HEART: S1, S2. No murmurs. ABDOMEN: Soft, obese. Bowel sounds present, nontender, nondistended. EXTREMITIES: No edema, no cyanosis. DERMATOLOGIC: Warm, dry, no generalized rash. NEUROLOGIC: Sleepy arousable somewhat confused hard of hearing. PSYCHIATRIC: Appropriate, calm. Medications: Inpatient Meds: Medications reviewed. Labs: Lab Laboratory Tests Test 10/16/21 17:02 10/16/21 21:01 10/17/21 07:35 10/17/21 07:45 Glucose (Fingerstick) 89 mg/dL (70-99) 83 mg/dL (70-99) 79 mg/dL (70-99) White Blood Count 3.6 x10^3/uL (4.0-11.0) Red Blood Count 4.34 x10^6/uL (3.50-5.40) Hemoglobin 12.0 g/dL (12.0-15.5) Hematocrit 37.2 % (36.0-47.0) Mean Corpuscular Volume 86 fL (79-100) Mean Corpuscular Hemoglobin 28 pg (25-35) Mean Corpuscular Hemoglobin Concent 32 g/dL (31-37) Red Cell Distribution Width 13.7 % (11.5-14.5) Platelet Count 118 x10^3/uL (140-400) Neutrophils (%) (Auto) 63 % (31-73) Lymphocytes (%) (Auto) 22 % (24-48) Monocytes (%) (Auto) 15 % (0-9) Eosinophils (%) (Auto) 0 % (0-3) Basophils (%) (Auto) 0 % (0-3) Neutrophils # (Auto) 2.3 x10^3/uL (1.8-7.7) Lymphocytes # (Auto) 0.8 x10^3/uL (1.0-4.8) Monocytes # (Auto) 0.5 x10^3/uL (0.0-1.1) Eosinophils # (Auto) 0.0 x10^3/uL (0.0-0.7) Basophils # (Auto) 0.0 x10^3/uL (0.0-0.2) Sodium Level 140 mmol/L (136-145) Potassium Level 4.0 mmol/L (3.5-5.1) Chloride Level 102 mmol/L (98-107) Carbon Dioxide Level 29 mmol/L (21-32) Anion Gap 9 (6-14) Blood Urea Nitrogen 17 mg/dL (7-20) Creatinine 1.1 mg/dL (0.6-1.0) Estimated GFR (Cockcroft-Gault) 47.4 BUN/Creatinine Ratio 15 (6-20) Glucose Level 87 mg/dL (70-99) Calcium Level 8.2 mg/dL (8.5-10.1) Magnesium Level 1.9 mg/dL (1.8-2.4) Total Bilirubin 0.5 mg/dL (0.2-1.0) Aspartate Amino Transf (AST/SGOT) 30 U/L (15-37) Alanine Aminotransferase (ALT/SGPT) 26 U/L (14-59) Alkaline Phosphatase 61 U/L (46-116) Total Protein 6.1 g/dL (6.4-8.2) Albumin 2.9 g/dL (3.4-5.0) Albumin/Globulin Ratio 0.9 (1.0-1.7) Objective: Assessment: 1. Bacteremia, GPR with filaments, 1 out of 4 bottles present on admission, final ID and JOSE pending, differential diagnosis could be rare bacterial infection with Nocardia versus Actinomyces though patient is not a proper host for the same Could be contaminant 2. Dyspnea, likely from COVID-19 pneumonia. 3. Chronic obstructive pulmonary disease, chronic respiratory failure, on home O2 at 2 liters unchanged at this time. 4. Leukopenia. 5. Bandemia. 6. Generalized weakness and myalgias. Plan: Plan of Care Continue supportive care Continue Zosyn and Bactrim for now Follow-up blood cultures Monitor renal functions closely Maintain aspiration precaution D/W OSCAR ALVARADO MD Oct 17, 2021 09:18
--- NOTE | 2021-10-17 09:59 | PDOC ---
PULMONARY PROGRESS NOTES DATE: 10/17/21 TIME: 09:57 Subjective Patient did not slept well last night. This morning slightly lethargic and confused Vitals Vital Signs Date Time Temp Pulse Resp B/P (MAP) Pulse Ox O2 Delivery O2 Flow Rate FiO2 10/17/21 08:00 Nasal Cannula 1.0 10/17/21 07:00 100.5 77 20 165/72 (103) 97 100.5 Comments Visual exam done due to COVID-19. No paradoxical breathing. No skin rash no leg edema Labs Laboratory Tests Test 10/15/21 13:25 10/15/21 13:50 10/16/21 17:02 10/16/21 21:01 White Blood Count 3.0 x10^3/uL (4.0-11.0) Red Blood Count 4.16 x10^6/uL (3.50-5.40) Hemoglobin 11.5 g/dL (12.0-15.5) Hematocrit 35.8 % (36.0-47.0) Mean Corpuscular Volume 86 fL (79-100) Mean Corpuscular Hemoglobin 28 pg (25-35) Mean Corpuscular Hemoglobin Concent 32 g/dL (31-37) Red Cell Distribution Width 13.9 % (11.5-14.5) Platelet Count 117 x10^3/uL (140-400) Neutrophils (%) (Auto) 55 % (31-73) Lymphocytes (%) (Auto) 26 % (24-48) Monocytes (%) (Auto) 18 % (0-9) Eosinophils (%) (Auto) 0 % (0-3) Basophils (%) (Auto) 1 % (0-3) Neutrophils # (Auto) 1.7 x10^3/uL (1.8-7.7) Lymphocytes # (Auto) 0.8 x10^3/uL (1.0-4.8) Monocytes # (Auto) 0.6 x10^3/uL (0.0-1.1) Eosinophils # (Auto) 0.0 x10^3/uL (0.0-0.7) Basophils # (Auto) 0.0 x10^3/uL (0.0-0.2) Segmented Neutrophils % 50 % (35-66) Band Neutrophils % 15 % (0-9) Lymphocytes % 21 % (24-48) Atypical Lymphocytes % (Manual) 1 % (0-0) Monocytes % 13 % (0-10) Platelet Estimate Decreased (ADEQUATE) Sodium Level 140 mmol/L (136-145) Potassium Level 4.0 mmol/L (3.5-5.1) Chloride Level 103 mmol/L (98-107) Carbon Dioxide Level 29 mmol/L (21-32) Anion Gap 8 (6-14) Blood Urea Nitrogen 14 mg/dL (7-20) Creatinine 0.8 mg/dL (0.6-1.0) Estimated GFR (Cockcroft-Gault) 68.5 BUN/Creatinine Ratio 18 (6-20) Glucose Level 96 mg/dL (70-99) Lactic Acid Level 0.6 mmol/L (0.4-2.0) Calcium Level 8.3 mg/dL (8.5-10.1) Total Bilirubin 0.4 mg/dL (0.2-1.0) Aspartate Amino Transf (AST/SGOT) 32 U/L (15-37) Alanine Aminotransferase (ALT/SGPT) 27 U/L (14-59) Alkaline Phosphatase 70 U/L (46-116) Troponin I High Sensitivity 22 ng/L (4-50) SV-[id number]-[id number]-Type Natriuretic Peptide 752 pg/mL (0-449) Total Protein 6.0 g/dL (6.4-8.2) Albumin 3.0 g/dL (3.4-5.0) Albumin/Globulin Ratio 1.0 (1.0-1.7) Influenza Type A Antigen Negative (NEGATIVE) Influenza Type B Antigen Negative (NEGATIVE) SARS-CoV-2 Antigen (Rapid) Positive (NEGATIVE) Glucose (Fingerstick) 89 mg/dL (70-99) 83 mg/dL (70-99) Test 10/17/21 07:35 10/17/21 07:45 Glucose (Fingerstick) 79 mg/dL (70-99) White Blood Count 3.6 x10^3/uL (4.0-11.0) Red Blood Count 4.34 x10^6/uL (3.50-5.40) Hemoglobin 12.0 g/dL (12.0-15.5) Hematocrit 37.2 % (36.0-47.0) Mean Corpuscular Volume 86 fL (79-100) Mean Corpuscular Hemoglobin 28 pg (25-35) Mean Corpuscular Hemoglobin Concent 32 g/dL (31-37) Red Cell Distribution Width 13.7 % (11.5-14.5) Platelet Count 118 x10^3/uL (140-400) Neutrophils (%) (Auto) 63 % (31-73) Lymphocytes (%) (Auto) 22 % (24-48) Monocytes (%) (Auto) 15 % (0-9) Eosinophils (%) (Auto) 0 % (0-3) Basophils (%) (Auto) 0 % (0-3) Neutrophils # (Auto) 2.3 x10^3/uL (1.8-7.7) Lymphocytes # (Auto) 0.8 x10^3/uL (1.0-4.8) Monocytes # (Auto) 0.5 x10^3/uL (0.0-1.1) Eosinophils # (Auto) 0.0 x10^3/uL (0.0-0.7) Basophils # (Auto) 0.0 x10^3/uL (0.0-0.2) Sodium Level 140 mmol/L (136-145) Potassium Level 4.0 mmol/L (3.5-5.1) Chloride Level 102 mmol/L (98-107) Carbon Dioxide Level 29 mmol/L (21-32) Anion Gap 9 (6-14) Blood Urea Nitrogen 17 mg/dL (7-20) Creatinine 1.1 mg/dL (0.6-1.0) Estimated GFR (Cockcroft-Gault) 47.4 BUN/Creatinine Ratio 15 (6-20) Glucose Level 87 mg/dL (70-99) Calcium Level 8.2 mg/dL (8.5-10.1) Magnesium Level 1.9 mg/dL (1.8-2.4) Total Bilirubin 0.5 mg/dL (0.2-1.0) Aspartate Amino Transf (AST/SGOT) 30 U/L (15-37) Alanine Aminotransferase (ALT/SGPT) 26 U/L (14-59) Alkaline Phosphatase 61 U/L (46-116) Total Protein 6.1 g/dL (6.4-8.2) Albumin 2.9 g/dL (3.4-5.0) Albumin/Globulin Ratio 0.9 (1.0-1.7) Laboratory Tests Test 10/16/21 17:02 10/16/21 21:01 10/17/21 07:35 10/17/21 07:45 Glucose (Fingerstick) 89 mg/dL (70-99) 83 mg/dL (70-99) 79 mg/dL (70-99) White Blood Count 3.6 x10^3/uL (4.0-11.0) Red Blood Count 4.34 x10^6/uL (3.50-5.40) Hemoglobin 12.0 g/dL (12.0-15.5) Hematocrit 37.2 % (36.0-47.0) Mean Corpuscular Volume 86 fL (79-100) Mean Corpuscular Hemoglobin 28 pg (25-35) Mean Corpuscular Hemoglobin Concent 32 g/dL (31-37) Red Cell Distribution Width 13.7 % (11.5-14.5) Platelet Count 118 x10^3/uL (140-400) Neutrophils (%) (Auto) 63 % (31-73) Lymphocytes (%) (Auto) 22 % (24-48) Monocytes (%) (Auto) 15 % (0-9) Eosinophils (%) (Auto) 0 % (0-3) Basophils (%) (Auto) 0 % (0-3) Neutrophils # (Auto) 2.3 x10^3/uL (1.8-7.7) Lymphocytes # (Auto) 0.8 x10^3/uL (1.0-4.8) Monocytes # (Auto) 0.5 x10^3/uL (0.0-1.1) Eosinophils # (Auto) 0.0 x10^3/uL (0.0-0.7) Basophils # (Auto) 0.0 x10^3/uL (0.0-0.2) Sodium Level 140 mmol/L (136-145) Potassium Level 4.0 mmol/L (3.5-5.1) Chloride Level 102 mmol/L (98-107) Carbon Dioxide Level 29 mmol/L (21-32) Anion Gap 9 (6-14) Blood Urea Nitrogen 17 mg/dL (7-20) Creatinine 1.1 mg/dL (0.6-1.0) Estimated GFR (Cockcroft-Gault) 47.4 BUN/Creatinine Ratio 15 (6-20) Glucose Level 87 mg/dL (70-99) Calcium Level 8.2 mg/dL (8.5-10.1) Magnesium Level 1.9 mg/dL (1.8-2.4) Total Bilirubin 0.5 mg/dL (0.2-1.0) Aspartate Amino Transf (AST/SGOT) 30 U/L (15-37) Alanine Aminotransferase (ALT/SGPT) 26 U/L (14-59) Alkaline Phosphatase 61 U/L (46-116) Total Protein 6.1 g/dL (6.4-8.2) Albumin 2.9 g/dL (3.4-5.0) Albumin/Globulin Ratio 0.9 (1.0-1.7) Medications Active Scripts Medications Dose Route/Sig Max Daily Dose Days Date Category Vitamin D (Cholecalciferol (Vitamin D3)) 2,000 Unit Capsule 1 Cap PO DAILY 12/24/14 Reported Calcium 500 + Vit D 400 Tablet (Calcium Carbonate/Vitamin D3) 1 Each Tablet 1 Each PO DAILY 12/24/14 Reported Magnesium (Magnesium Oxide) 250 Mg Tablet 250 Mg PO BID 12/24/14 Reported Fish Oil 1,000 Mg Capsule ([place]-3 Fatty Acids/Fish Oil) 1 Each Capsule 2 Each PO DAILY 12/24/14 Reported Xanax (Alprazolam) 0.25 Mg Tablet 1 Tab PO BID 12/24/14 Reported Potassium Chloride 10 Meq Capsule.er 10 Meq PO DAILY 05/16/14 Reported Cymbalta (Duloxetine Hcl) 60 Mg Capsule.dr 60 Mg PO DAILY 05/16/14 Reported Metoprolol Succinate ( Xl ) (Metoprolol Succinate) 100 Mg Tab.er.24h 100 Mg PO DAILY 05/16/14 Reported Cetirizine Hcl 10 Mg Tab.chew 10 Mg PO DAILY 05/16/14 Reported Hydrocodone-Apap 7.5-325 (Hydrocodone Bit/Acetaminophen) 1 Each Tablet 1 Tab PO PRN Q6HRS PRN 05/16/14 Reported Simvastatin 20 Mg Tablet 20 Mg PO DAILY 05/16/14 Reported Flonase (Fluticasone Propionate) 16 Gm [place].susp 1 [place] NS DAILY PRN 05/16/14 Reported Losartan-Hctz 100-12.5 Mg Tab (Losartan/Hydrochlorothiazide) 1 Each Tablet 1 Each PO DAILY 05/16/14 Reported Protonix (Pantoprazole Sodium) 40 Mg Granpkt.dr 40 Mg PO DAILY 05/16/14 Reported Ventolin Hfa Inhaler (Albuterol Sulfate) 18 Gm Hfa.aer.ad 2 Puff INH QID PRN 05/16/14 Reported Aspirin 81 Mg Tab.chew 81 Mg PO DAILY 05/16/14 Reported Spiriva (Tiotropium Moose) 18 Mcg Cap.w.dev 2 Inh IH DAILY 05/16/14 Reported Impression . 1. Dyspnea secondary to COVID-19 viral pneumonia. 2. The patient with chronic obstructive pulmonary disease, on home oxygen at 2 liters. Oxygen requirement has not changed. At this time, we will withhold any steroids. 3. Bacteremia. Await final cultures. Infectious Disease has been consulted. 4. History of chronic obstructive pulmonary disease. 5. Abnormal chest x-ray with faint interstitial infiltrates suggestive of COVID-19 viral pneumonia. 6. Fever secondary to COVID-19 pneumonia. Cannot exclude superimposed bacterial pneumonia 7. Encephalopathy secondary to fever and COVID-19 viral pneumonia Plan . RECOMMENDATIONS: 1. We will continue to monitor respiratory status. At present, she is compensated at the baseline oxygen at1- 2 liters. 2. We will withhold steroids at present until oxygen requirement changes. 3. Continue DuoNebs. 4. Follow final blood cultures. 5. Follow Infectious Disease recommendations. 6. Continue home medications. 7. Add DVT prophylaxis. 8. Discussed with RN. Pulmonary status is stable. We will follow as needed. HUSSAIN GIL MD Oct 17, 2021 09:59
[2021-10-17] MEDS: CHOLECALCIFEROL (VITAMIN D3) 1,000 UNIT TABLET PO SCH (10:48)
[2021-10-17] MEDS: MAGNESIUM OXIDE 400 MG TABLET PO SCH ×2 (10:48→20:13)
[2021-10-17] MEDS: LOSARTAN POTASSIUM 50 MG TABLET. PO SCH (10:49)
[2021-10-17] MEDS: CETIRIZINE HCL 10 MG TABLET. PO SCH (10:49)
[2021-10-17] MEDS: LACTOBACILLUS RHAMNOSUS GG 1 CAPSULE. PO SCH ×2 (10:50→20:13)
[2021-10-17] MEDS: METOPROLOL SUCC 24HR ER 100 MG TAB.ER.24H. PO SCH (10:50)
[2021-10-17] MEDS: PANTOPRAZOLE 40 MG TABLET.DR. PO SCH (10:50)
[2021-10-17] MEDS: CALCIUM CARB/VIT D3 500/200 TABLET. PO SCH (10:51)
[2021-10-17] MEDS: SMZ/TMP 800/160MG TABLET. PO SCH ×2 (10:51→20:13)
[2021-10-17] MEDS: ASPIRIN CHEWABLE 81 MG TABLET. PO SCH (10:52)
[2021-10-17] MEDS: DULoxetine HCL 30 MG CAPSULE.DR PO SCH (10:52)
[2021-10-17] MEDS: ENOXAPARIN 40 MG/0.4 ML SYRINGE. SQ SCH (10:53)
[2021-10-17 11:00] VITALS: BP 178/81
[2021-10-17] MEDS: hydrALAZINE 20 MG/ML VIAL. IVP PRN (14:44)
[2021-10-17 15:00] VITALS: BP 181/59
[2021-10-17] MEDS: HYDROcodone/APAP 7.5/325MG 1 TAB TABLET PO PRN (15:53)
[2021-10-17 19:00] VITALS: BP 99/48
[2021-10-17] MEDS: SIMVASTATIN 20 MG TABLET PO SCH (20:13)
--- NOTE | 2021-10-17 22:30 | NUR ---
MEDICATION NOTE Alprazolam held d/t pt is sleeping/drowsy every time upon entering room.
[2021-10-17 22:39] VITALS: BP 146/58
[2021-10-18] MEDS: PIPERACILLIN/TAZOBACTAM 3.375 GM in IV NORMAL SALINE 50ML 50 ML IV SCH ×5 (00:07→23:07)
[2021-10-18 03:00] VITALS: BP 151/59
[2021-10-18 07:00] VITALS: BP 165/66
[2021-10-18] MEDS: INSULIN LISPRO 300 UNITS/3 ML VIAL. SQ SCH ×2 (07:30→16:30)
[2021-10-18] MEDS: OMEGA-3 FATTY ACIDS/FISH OIL 1,000 MG CAPSULE. PO SCH (08:46)
[2021-10-18] MEDS: CHOLECALCIFEROL (VITAMIN D3) 1,000 UNIT TABLET PO SCH (08:46)
[2021-10-18] MEDS: LACTOBACILLUS RHAMNOSUS GG 1 CAPSULE. PO SCH ×2 (08:46→20:46)
[2021-10-18] MEDS: hydroCHLOROthiazide 12.5 MG CAPSULE PO SCH (08:46)
[2021-10-18] MEDS: CALCIUM CARB/VIT D3 500/200 TABLET. PO SCH (08:46)
[2021-10-18] MEDS: LOSARTAN POTASSIUM 50 MG TABLET. PO SCH (08:48)
[2021-10-18] MEDS: PANTOPRAZOLE 40 MG TABLET.DR. PO SCH (08:51)
[2021-10-18] MEDS: MAGNESIUM OXIDE 400 MG TABLET PO SCH ×2 (08:51→20:45)
[2021-10-18] MEDS: DULoxetine HCL 30 MG CAPSULE.DR PO SCH (08:51)
[2021-10-18] MEDS: POTASSIUM CHLORIDE 10 MEQ TABLET.ER. PO SCH (08:51)
[2021-10-18] MEDS: ALPRAZolam 0.25 MG TABLET PO SCH ×2 (08:51→20:45)
[2021-10-18] MEDS: CETIRIZINE HCL 10 MG TABLET. PO SCH (08:51)
[2021-10-18] MEDS: ASPIRIN CHEWABLE 81 MG TABLET. PO SCH (08:52)
[2021-10-18] MEDS: SMZ/TMP 800/160MG TABLET. PO SCH (08:52)
[2021-10-18] MEDS: METOPROLOL SUCC 24HR ER 100 MG TAB.ER.24H. PO SCH (08:52)
[2021-10-18] MEDS: ENOXAPARIN 40 MG/0.4 ML SYRINGE. SQ SCH (08:52)
[2021-10-18 08:58] LABS: BASO % 0 % (0-3); EOS % 0 % (0-3); HEMATOCRIT 37.8 % (36.0-47.0); HEMOGLOBIN 11.9 g/dL (12.0-15.5); LYMPH # 0.8 x10^3/uL (1.0-4.8); LYMPH % 27 % (24-48); MEAN CORPUSCULAR HEMOGLOBIN 27 pg (25-35); MEAN CORPUSCULAR HGB CONC 32 g/dL (31-37); MEAN CORPUSCULAR VOLUME 86 fL (79-100); MONO # 0.5 x10^3/uL (0.0-1.1); MONO % 17 % (0-9); NEUT # 1.7 x10^3/uL (1.8-7.7); NEUT % 56 % (31-73); PLATELET COUNT 109 x10^3/uL (140-400); RED BLOOD COUNT 4.39 x10^6/uL (3.50-5.40); RED CELL DISTRIBUTION WIDTH 14.3 % (11.5-14.5)
[2021-10-18] MEDS: IPRATROPIUM/ALBUTEROL 20/100mcg/INH INHALER. INH SCH ×4 (08:59→20:45)
[2021-10-18 09:24] LABS: CALCIUM 8.4 mg/dL (8.5-10.1); CREATININE 1.1 mg/dL (0.6-1.0); GFR 47.4; POTASSIUM 4.2 mmol/L (3.5-5.1)
--- NOTE | 2021-10-18 10:04 | PDOC ---
Infectious Disease Note Subjective: Subjective Patient sleepy arousable On O2 by nasal cannula Temperature 100*F this morning Discussed with RN Vital Signs: Vital Signs Vital Signs Date Time Temp Pulse Resp B/P (MAP) Pulse Ox O2 Delivery O2 Flow Rate FiO2 10/18/21 08:52 89 165/66 10/18/21 07:00 100.2 27 94 Nasal Cannula 2.0 100.2 Physical Exam: PHYSICAL EXAM GENERAL: Sleepy but arousable female appears tired HEENT: Normocephalic, atraumatic. Anicteric. NECK: Supple, no JVD, no lymphadenopathy. LUNGS: Decreased breath sounds at the bases. No wheezing. HEART: S1, S2. No murmurs. ABDOMEN: Soft, obese. Bowel sounds present, nontender, nondistended. EXTREMITIES: No edema, no cyanosis. DERMATOLOGIC: Warm, dry, no generalized rash. NEUROLOGIC: Sleepy arousable somewhat confused hard of hearing. PSYCHIATRIC: Appropriate, calm. Medications: Inpatient Meds: Medications reviewed. Labs: Lab Laboratory Tests Test 10/17/21 12:00 10/17/21 17:04 10/17/21 18:51 10/18/21 07:16 Glucose (Fingerstick) 87 mg/dL (70-99) 84 mg/dL (70-99) 113 mg/dL (70-99) 89 mg/dL (70-99) Test 10/18/21 07:30 White Blood Count 3.0 x10^3/uL (4.0-11.0) Red Blood Count 4.39 x10^6/uL (3.50-5.40) Hemoglobin 11.9 g/dL (12.0-15.5) Hematocrit 37.8 % (36.0-47.0) Mean Corpuscular Volume 86 fL (79-100) Mean Corpuscular Hemoglobin 27 pg (25-35) Mean Corpuscular Hemoglobin Concent 32 g/dL (31-37) Red Cell Distribution Width 14.3 % (11.5-14.5) Platelet Count 109 x10^3/uL (140-400) Neutrophils (%) (Auto) 56 % (31-73) Lymphocytes (%) (Auto) 27 % (24-48) Monocytes (%) (Auto) 17 % (0-9) Eosinophils (%) (Auto) 0 % (0-3) Basophils (%) (Auto) 0 % (0-3) Neutrophils # (Auto) 1.7 x10^3/uL (1.8-7.7) Lymphocytes # (Auto) 0.8 x10^3/uL (1.0-4.8) Monocytes # (Auto) 0.5 x10^3/uL (0.0-1.1) Eosinophils # (Auto) 0.0 x10^3/uL (0.0-0.7) Basophils # (Auto) 0.0 x10^3/uL (0.0-0.2) Sodium Level 140 mmol/L (136-145) Potassium Level 4.2 mmol/L (3.5-5.1) Chloride Level 101 mmol/L (98-107) Carbon Dioxide Level 27 mmol/L (21-32) Anion Gap 12 (6-14) Blood Urea Nitrogen 20 mg/dL (7-20) Creatinine 1.1 mg/dL (0.6-1.0) Estimated GFR (Cockcroft-Gault) 47.4 Glucose Level 83 mg/dL (70-99) Calcium Level 8.4 mg/dL (8.5-10.1) Objective: Assessment: 1. Bacteremia, GPR with filaments, 1 out of 4 bottles present on admission, Strep mitis/oralis Could be contaminant 2. Dyspnea, likely from COVID-19 pneumonia. 3. Chronic obstructive pulmonary disease, chronic respiratory failure, on home O2 at 2 liters unchanged at this time. 4. Leukopenia. 5. Bandemia. 6. Generalized weakness and myalgias. Plan: Plan of Care Continue supportive care Continue SANDRA Barbosa Bactrim Follow-up blood cultures Monitor renal functions closely Maintain aspiration precaution D/W OSCAR ALVARADO MD Oct 18, 2021 10:04
[2021-10-18 11:00] VITALS: BP 166/72
--- NOTE | 2021-10-18 12:08 | PDOC ---
PROGRESS NOTES Date of Service: DATE: 10/18/21 TIME: 12:06 Subjective Subjective not much appetite Objective Objective Vital Signs Date Time Temp Pulse Resp B/P (MAP) Pulse Ox O2 Delivery O2 Flow Rate FiO2 10/18/21 11:00 98.5 73 16 166/72 (103) 93 Nasal Cannula 2.0 98.5 Intake and Output 10/18/21 07:00 Intake Total 750 ml Balance 750 ml Intake Oral 600 ml IV Total 150 ml # Voids 4 Physical Exam Abdomen: Soft Heart: Normal S1, Normal S2 Extremities: No clubbing, No cyanosis General: Alert, Oriented X3 HEENT: Atraumatic MUSCULOSKELETAL: No deformity Neuro: Normal speech Psych/Mental Status: Mental status NL Skin: No breakdown Diagnosis Problem List Problems Medical Problems: (1) COPD exacerbation Status: Acute (2) COVID-19 Status: Acute (3) Weakness Status: Acute Assessment Assessment 1. COVID-19 pneumonia. 2. Sepsis with abnormal blood culture. 3. Acute on chronic respiratory failure. 4. Chronic obstructive pulmonary disease exacerbation. 5. Hypertension. 6. Diabetes mellitus type 2. 7. Peripheral artery disease. 8. Gastroesophageal reflux disease. 9. Hypothyroidism and high thyroid goiter. 10. History of hiatal hernia. 11. History of gastritis. 12. History of colon cancer and breast cancer. 13. Dementia. 14. Tremors. 15. Anxiety. 16. Depression. 17. Osteoarthritis and chronic pain. PLAN:spoke with RN labs stable no new changes. antibiotics 1. COVID-[address] Dorsey. The patient's oxygen requirements have not changed, so he does not feel that she needs more steroids at this time. She was given a dose of steroid in the emergency room. Continue observation. 2. Possible sepsis with gram-positive rods with branching filaments. FINAL ID= [STREPTOCOCCUS MITIS/ORALIS GRP] Dr. Meagan Sanz for Infectious Disease evaluation and management. The patient has been started on IV Zosyn and Bactrim DS. 3. Diabetes mellitus type 2. Continue to monitor. 4. Hypertension, not controlled. We will order IV p.r.n. hydralazine. Creatinine is increasing. Patient had nausea yesterday. Hold hydrochlorothiazide and potassium chloride today. Discussed with staff. 5. Osteoarthritis. Continue pain medications. 6. Dementia with acute metabolic encephalopathy. Multifactorial. Discussed with staff. Hold Xanax this morning. For details, please refer to the orders. Long-term as well as short-term prognosis of this patient is very poor due to her multiple medical problems. Discussed with caregiver, condition treatment and options yesterday and son today. Check labs in a.m. Plan Plan of Care Problems Medical Problems: (1) COPD exacerbation Status: Acute (2) COVID-19 Status: Acute (3) Weakness Status: Acute Comment Review of Relevant I have reviewed the following items que (where applicable) has been applied. Labs Laboratory Tests Test 10/17/21 17:04 10/17/21 18:51 10/18/21 07:16 10/18/21 07:30 Glucose (Fingerstick) 84 mg/dL (70-99) 113 mg/dL (70-99) 89 mg/dL (70-99) White Blood Count 3.0 x10^3/uL (4.0-11.0) Red Blood Count 4.39 x10^6/uL (3.50-5.40) Hemoglobin 11.9 g/dL (12.0-15.5) Hematocrit 37.8 % (36.0-47.0) Mean Corpuscular Volume 86 fL (79-100) Mean Corpuscular Hemoglobin 27 pg (25-35) Mean Corpuscular Hemoglobin Concent 32 g/dL (31-37) Red Cell Distribution Width 14.3 % (11.5-14.5) Platelet Count 109 x10^3/uL (140-400) Neutrophils (%) (Auto) 56 % (31-73) Lymphocytes (%) (Auto) 27 % (24-48) Monocytes (%) (Auto) 17 % (0-9) Eosinophils (%) (Auto) 0 % (0-3) Basophils (%) (Auto) 0 % (0-3) Neutrophils # (Auto) 1.7 x10^3/uL (1.8-7.7) Lymphocytes # (Auto) 0.8 x10^3/uL (1.0-4.8) Monocytes # (Auto) 0.5 x10^3/uL (0.0-1.1) Eosinophils # (Auto) 0.0 x10^3/uL (0.0-0.7) Basophils # (Auto) 0.0 x10^3/uL (0.0-0.2) Sodium Level 140 mmol/L (136-145) Potassium Level 4.2 mmol/L (3.5-5.1) Chloride Level 101 mmol/L (98-107) Carbon Dioxide Level 27 mmol/L (21-32) Anion Gap 12 (6-14) Blood Urea Nitrogen 20 mg/dL (7-20) Creatinine 1.1 mg/dL (0.6-1.0) Estimated GFR (Cockcroft-Gault) 47.4 Glucose Level 83 mg/dL (70-99) Calcium Level 8.4 mg/dL (8.5-10.1) Microbiology 10/17/21 Blood Culture - Preliminary, Resulted NO GROWTH AFTER 1 DAY Vitals/I & O Vital Sign - Last 24 Hours 10/17/21 10/17/21 10/17/21 10/17/21 14:44 15:00 15:53 17:32 Temp 98.2 98.2 Pulse 74 Resp 22 B/P (MAP) 181/59 181/59 (99) Pulse Ox 93 93 O2 Delivery Nasal Cannula Nasal Cannula Nasal Cannula O2 Flow Rate 0.5 0.5 0.5 10/17/21 10/17/21 10/17/21 10/18/21 19:00 19:45 22:39 03:00 Temp 100.1 98.4 100.0 100.1 98.4 100.0 Pulse 75 78 79 Resp 18 18 18 B/P (MAP) 99/48 (65) 146/58 (87) 151/59 (89) Pulse Ox 92 92 93 O2 Delivery Nasal Cannula Nasal Cannula Nasal Cannula Nasal Cannula O2 Flow Rate 1.0 1.0 1.0 1.0 10/18/21 10/18/21 10/18/21 10/18/21 07:00 08:00 08:48 08:52 Temp 100.2 100.2 Pulse 89 89 89 Resp 27 B/P (MAP) 165/66 (99) 165/66 165/66 Pulse Ox 94 O2 Delivery Nasal Cannula Nasal Cannula O2 Flow Rate 2.0 2.0 10/18/21 11:00 Temp 98.5 98.5 Pulse 73 Resp 16 B/P (MAP) 166/72 (103) Pulse Ox 93 O2 Delivery Nasal Cannula O2 Flow Rate 2.0 Intake and Output 10/17/21 10/17/21 10/18/21 15:00 23:00 07:00 Intake Total 50 ml 600 ml 100 ml Balance 50 ml 600 ml 100 ml Justifications for Admission Other Justification BRANDYN ZULUAGA MD Oct 18, 2021 12:08
[2021-10-18 15:00] VITALS: BP 121/50
[2021-10-18] MEDS: HYDROcodone/APAP 7.5/325MG 1 TAB TABLET PO PRN (17:01)
[2021-10-18 19:00] VITALS: BP 160/60
[2021-10-18] MEDS: SIMVASTATIN 20 MG TABLET PO SCH (20:46)
[2021-10-18] MEDS: hydrALAZINE 20 MG/ML VIAL. IVP PRN (22:38)
[2021-10-18 23:00] VITALS: BP 162/60
[2021-10-19 03:00] VITALS: BP 177/59
[2021-10-19] MEDS: hydrALAZINE 20 MG/ML VIAL. IVP PRN (05:20)
[2021-10-19] MEDS: PIPERACILLIN/TAZOBACTAM 3.375 GM in IV NORMAL SALINE 50ML 50 ML IV SCH ×3 (05:20→17:38)
[2021-10-19 07:00] VITALS: BP 179/98
[2021-10-19] MEDS: INSULIN LISPRO 300 UNITS/3 ML VIAL. SQ SCH ×2 (07:30→16:30)
[2021-10-19] MEDS: hydroCHLOROthiazide 12.5 MG CAPSULE PO SCH (10:19)
[2021-10-19] MEDS: LOSARTAN POTASSIUM 50 MG TABLET. PO SCH (10:20)
[2021-10-19] MEDS: ALPRAZolam 0.25 MG TABLET PO SCH ×2 (10:20→20:52)
[2021-10-19] MEDS: DULoxetine HCL 30 MG CAPSULE.DR PO SCH (10:21)
[2021-10-19] MEDS: ENOXAPARIN 40 MG/0.4 ML SYRINGE. SQ SCH (10:21)
[2021-10-19] MEDS: MAGNESIUM OXIDE 400 MG TABLET PO SCH ×2 (10:21→20:52)
[2021-10-19] MEDS: LACTOBACILLUS RHAMNOSUS GG 1 CAPSULE. PO SCH ×2 (10:24→20:51)
[2021-10-19] MEDS: ASPIRIN CHEWABLE 81 MG TABLET. PO SCH (10:24)
[2021-10-19] MEDS: OMEGA-3 FATTY ACIDS/FISH OIL 1,000 MG CAPSULE. PO SCH (10:24)
[2021-10-19] MEDS: CALCIUM CARB/VIT D3 500/200 TABLET. PO SCH (10:25)
[2021-10-19] MEDS: CHOLECALCIFEROL (VITAMIN D3) 1,000 UNIT TABLET PO SCH (10:25)
[2021-10-19] MEDS: PANTOPRAZOLE 40 MG TABLET.DR. PO SCH (10:25)
[2021-10-19] MEDS: CETIRIZINE HCL 10 MG TABLET. PO SCH (10:25)
[2021-10-19] MEDS: POTASSIUM CHLORIDE 10 MEQ TABLET.ER. PO SCH (10:25)
[2021-10-19] MEDS: METOPROLOL SUCC 24HR ER 100 MG TAB.ER.24H. PO SCH (10:26)
[2021-10-19] MEDS: IPRATROPIUM/ALBUTEROL 20/100mcg/INH INHALER. INH SCH ×4 (10:29→21:03)
--- NOTE | 2021-10-19 10:40 | PDOC ---
PULMONARY PROGRESS NOTES DATE: 10/19/21 TIME: 10:39 Subjective No increased shortness of breath. No increased cough. Vitals Vital Signs Date Time Temp Pulse Resp B/P (MAP) Pulse Ox O2 Delivery O2 Flow Rate FiO2 10/19/21 10:26 88 179/98 10/19/21 03:00 99.6 20 94 Nasal Cannula 2.0 99.6 Comments Visual exam done due to COVID-19. No paradoxical breathing. No skin rash no leg edema Labs Laboratory Tests Test 10/17/21 12:00 10/17/21 17:04 10/17/21 18:51 10/18/21 07:16 Glucose (Fingerstick) 87 mg/dL (70-99) 84 mg/dL (70-99) 113 mg/dL (70-99) 89 mg/dL (70-99) Test 10/18/21 07:30 10/18/21 11:57 10/18/21 16:54 10/18/21 21:49 White Blood Count 3.0 x10^3/uL (4.0-11.0) Red Blood Count 4.39 x10^6/uL (3.50-5.40) Hemoglobin 11.9 g/dL (12.0-15.5) Hematocrit 37.8 % (36.0-47.0) Mean Corpuscular Volume 86 fL (79-100) Mean Corpuscular Hemoglobin 27 pg (25-35) Mean Corpuscular Hemoglobin Concent 32 g/dL (31-37) Red Cell Distribution Width 14.3 % (11.5-14.5) Platelet Count 109 x10^3/uL (140-400) Neutrophils (%) (Auto) 56 % (31-73) Lymphocytes (%) (Auto) 27 % (24-48) Monocytes (%) (Auto) 17 % (0-9) Eosinophils (%) (Auto) 0 % (0-3) Basophils (%) (Auto) 0 % (0-3) Neutrophils # (Auto) 1.7 x10^3/uL (1.8-7.7) Lymphocytes # (Auto) 0.8 x10^3/uL (1.0-4.8) Monocytes # (Auto) 0.5 x10^3/uL (0.0-1.1) Eosinophils # (Auto) 0.0 x10^3/uL (0.0-0.7) Basophils # (Auto) 0.0 x10^3/uL (0.0-0.2) Sodium Level 140 mmol/L (136-145) Potassium Level 4.2 mmol/L (3.5-5.1) Chloride Level 101 mmol/L (98-107) Carbon Dioxide Level 27 mmol/L (21-32) Anion Gap 12 (6-14) Blood Urea Nitrogen 20 mg/dL (7-20) Creatinine 1.1 mg/dL (0.6-1.0) Estimated GFR (Cockcroft-Gault) 47.4 Glucose Level 83 mg/dL (70-99) Calcium Level 8.4 mg/dL (8.5-10.1) Glucose (Fingerstick) 87 mg/dL (70-99) 72 mg/dL (70-99) 71 mg/dL (70-99) Test 10/19/21 08:31 Glucose (Fingerstick) 90 mg/dL (70-99) Laboratory Tests Test 10/18/21 11:57 10/18/21 16:54 10/18/21 21:49 10/19/21 08:31 Glucose (Fingerstick) 87 mg/dL (70-99) 72 mg/dL (70-99) 71 mg/dL (70-99) 90 mg/dL (70-99) Medications Active Scripts Medications Dose Route/Sig Max Daily Dose Days Date Category Vitamin D (Cholecalciferol (Vitamin D3)) 2,000 Unit Capsule 1 Cap PO DAILY 12/24/14 Reported Calcium 500 + Vit D 400 Tablet (Calcium Carbonate/Vitamin D3) 1 Each Tablet 1 Each PO DAILY 12/24/14 Reported Magnesium (Magnesium Oxide) 250 Mg Tablet 250 Mg PO BID 12/24/14 Reported Fish Oil 1,000 Mg Capsule ([place]-3 Fatty Acids/Fish Oil) 1 Each Capsule 2 Each PO DAILY 12/24/14 Reported Xanax (Alprazolam) 0.25 Mg Tablet 1 Tab PO BID 12/24/14 Reported Potassium Chloride 10 Meq Capsule.er 10 Meq PO DAILY 05/16/14 Reported Cymbalta (Duloxetine Hcl) 60 Mg Capsule.dr 60 Mg PO DAILY 05/16/14 Reported Metoprolol Succinate ( Xl ) (Metoprolol Succinate) 100 Mg Tab.er.24h 100 Mg PO DAILY 05/16/14 Reported Cetirizine Hcl 10 Mg Tab.chew 10 Mg PO DAILY 05/16/14 Reported Hydrocodone-Apap 7.5-325 (Hydrocodone Bit/Acetaminophen) 1 Each Tablet 1 Tab PO PRN Q6HRS PRN 05/16/14 Reported Simvastatin 20 Mg Tablet 20 Mg PO DAILY 05/16/14 Reported Flonase (Fluticasone Propionate) 16 Gm [place].susp 1 [place] NS DAILY PRN 05/16/14 Reported Losartan-Hctz 100-12.5 Mg Tab (Losartan/Hydrochlorothiazide) 1 Each Tablet 1 Each PO DAILY 05/16/14 Reported Protonix (Pantoprazole Sodium) 40 Mg Granpkt.dr 40 Mg PO DAILY 05/16/14 Reported Ventolin Hfa Inhaler (Albuterol Sulfate) 18 Gm Hfa.aer.ad 2 Puff INH QID PRN 05/16/14 Reported Aspirin 81 Mg Tab.chew 81 Mg PO DAILY 05/16/14 Reported Spiriva (Tiotropium [place]) 18 Mcg Cap.w.dev 2 Inh IH DAILY 05/16/14 Reported Impression . 1. Dyspnea secondary to COVID-19 viral pneumonia. 2. The patient with chronic obstructive pulmonary disease, on home oxygen at 2 liters. Oxygen requirement has not changed. At this time, we will withhold any steroids. 3. Bacteremia. FINAL ID= [STREPTOCOCCUS MITIS/ORALIS GRP], likely contaminant 4. History of chronic obstructive pulmonary disease. 5. Abnormal chest x-ray with faint interstitial infiltrates suggestive of COVID-19 viral pneumonia. 6. Fever secondary to COVID-19 pneumonia. Cannot exclude superimposed bacterial pneumonia 7. Encephalopathy secondary to fever and COVID-19 viral pneumonia Plan . RECOMMENDATIONS: 1. We will continue to monitor respiratory status. At present, she is compensated at the baseline oxygen at1- 2 liters. 2. We will withhold steroids at present until oxygen requirement changes. 3. Continue DuoNebs. 5. Follow Infectious Disease recommendations regarding bacteremia. Likely contaminant. 6. Continue home medications. 7. Add DVT prophylaxis. 8. Discussed with RN. Pulmonary status is stable. We will follow as needed. HUSSAIN GIL MD Oct 19, 2021 10:40
[2021-10-19 11:00] VITALS: BP 146/69
--- NOTE | 2021-10-19 12:06 | PDOC ---
PROGRESS NOTES Date of Service: DATE: 10/19/21 TIME: 12:03 Subjective Subjective no new problems Objective Objective Vital Signs Date Time Temp Pulse Resp B/P (MAP) Pulse Ox O2 Delivery O2 Flow Rate FiO2 10/19/21 10:26 88 179/98 10/19/21 08:00 Nasal Cannula 2.0 10/19/21 03:00 99.6 20 94 99.6 Intake and Output 10/19/21 07:00 Intake Total 600 ml Balance 600 ml Intake Oral 500 ml IV Total 100 ml # Voids 5 # Bowel Movements 1 Physical Exam Abdomen: Soft Heart: Normal S1, Normal S2 Extremities: No clubbing, No cyanosis General: Alert, Oriented X3 HEENT: Atraumatic MUSCULOSKELETAL: No deformity Neuro: Normal speech Psych/Mental Status: Mental status NL Skin: No breakdown Diagnosis Problem List Problems Medical Problems: (1) COPD exacerbation Status: Acute (2) COVID-19 Status: Acute (3) Weakness Status: Acute Assessment Assessment 1. COVID-19 pneumonia. 2. Sepsis with abnormal blood culture. 3. Acute on chronic respiratory failure. 4. Chronic obstructive pulmonary disease exacerbation. 5. Hypertension. 6. Diabetes mellitus type 2. 7. Peripheral artery disease. 8. Gastroesophageal reflux disease. 9. Hypothyroidism and high thyroid goiter. 10. History of hiatal hernia. 11. History of gastritis. 12. History of colon cancer and breast cancer. 13. Dementia. 14. Tremors. 15. Anxiety. 16. Depression. 17. Osteoarthritis and chronic pain. PLAN: FINAL ID= [STREPTOCOCCUS MITIS/ORALIS GRP]contamination spoke with RN labs stable no new changes. antibiotics IV ZOsyn DVT prevention with Lovenox. Plan Plan of Care Problems Medical Problems: (1) COPD exacerbation Status: Acute (2) COVID-19 Status: Acute (3) Weakness Status: Acute Comment Review of Relevant I have reviewed the following items que (where applicable) has been applied. Labs Laboratory Tests Test 10/18/21 16:54 10/18/21 21:49 10/19/21 08:31 10/19/21 11:20 Glucose (Fingerstick) 72 mg/dL (70-99) 71 mg/dL (70-99) 90 mg/dL (70-99) 111 mg/dL (70-99) Microbiology 10/17/21 Blood Culture - Preliminary, Resulted NO GROWTH AFTER 2 DAYS Vitals/I & O Vital Sign - Last 24 Hours 10/18/21 10/18/21 10/18/21 10/18/21 15:00 17:01 17:53 19:00 Temp 98.1 99.1 98.1 99.1 Pulse 73 74 Resp 28 20 B/P (MAP) 121/50 (73) 160/60 (93) Pulse Ox 92 92 92 93 O2 Delivery Nasal Cannula Nasal Cannula Nasal Cannula Nasal Cannula O2 Flow Rate 2.0 2.0 2.0 2.0 10/18/21 10/18/21 10/18/21 10/19/21 20:00 22:38 23:00 03:00 Temp 98.7 99.6 98.7 99.6 Pulse 77 77 75 Resp 20 20 B/P (MAP) 162/60 162/60 (94) 177/59 (98) Pulse Ox 91 94 O2 Delivery Nasal Cannula Nasal Cannula Nasal Cannula O2 Flow Rate 2.0 2.0 2.0 10/19/21 10/19/21 10/19/21 10/19/21 05:20 08:00 10:20 10:26 Pulse 75 88 88 B/P (MAP) 177/59 179/98 179/98 O2 Delivery Nasal Cannula O2 Flow Rate 2.0 Intake and Output 10/18/21 10/18/21 10/19/21 15:00 23:00 07:00 Intake Total 300 ml 300 ml Balance 300 ml 300 ml Justifications for Admission Other Justification BRANDYN ZULUAGA MD Oct 19, 2021 12:06
[2021-10-19 14:47] VITALS: BP 147/69
[2021-10-19 18:56] VITALS: BP 128/71
[2021-10-19] MEDS: SIMVASTATIN 20 MG TABLET PO SCH (20:52)
[2021-10-19] MEDS: HYDROcodone/APAP 7.5/325MG 1 TAB TABLET PO PRN (20:52)
[2021-10-19 22:51] VITALS: BP 126/50
[2021-10-20] MEDS: PIPERACILLIN/TAZOBACTAM 3.375 GM in IV NORMAL SALINE 50ML 50 ML IV SCH ×5 (01:04→23:48)
[2021-10-20 02:35] VITALS: BP 139/69
[2021-10-20] MEDS: INSULIN LISPRO 300 UNITS/3 ML VIAL. SQ SCH ×2 (07:30→16:30)
[2021-10-20 07:59] VITALS: BP 174/61
[2021-10-20] MEDS: IPRATROPIUM/ALBUTEROL 20/100mcg/INH INHALER. INH SCH ×4 (08:00→20:00)
--- NOTE | 2021-10-20 08:08 | PDOC ---
IM PROGRESS NOTES- Subjective Subjective Has some cough and congestion. She had significant nausea yesterday evening. Denies any diarrhea. No complaints of vomiting. Objective Vitals/I&O Vital Signs Date Time Temp Pulse Resp B/P (MAP) Pulse Ox O2 Delivery O2 Flow Rate FiO2 10/20/21 02:35 98.1 78 18 139/69 (92) 93 Nasal Cannula 1.0 98.1 I & O 10/19/21 10/19/21 10/20/21 15:00 23:00 07:00 Intake Total 300 ml 600 ml Balance 300 ml 600 ml Physical Exam Physical Exam General Appearance - alert and in mild distress Chest - decreased breath sounds at bases Heart - S1 and S2 normal Abdomen - soft, non tender Neurological - alert and forgetful Musculoskeletal - generalized weakness Extremities - no edema Labs Laboratory Tests Test 10/19/21 08:31 10/19/21 11:20 10/19/21 16:30 10/19/21 17:04 Glucose (Fingerstick) 90 mg/dL (70-99) 111 mg/dL (70-99) H 219 mg/dL (70-99) H 104 mg/dL (70-99) H Test 10/19/21 19:44 Glucose (Fingerstick) 116 mg/dL (70-99) H Assessment Assessment 1. COVID-19 pneumonia. 2. Sepsis with abnormal blood culture. 3. Acute on chronic respiratory failure. 4. Chronic obstructive pulmonary disease exacerbation. 5. Hypertension. 6. Diabetes mellitus type 2. 7. Peripheral artery disease. 8. Gastroesophageal reflux disease. 9. Hypothyroidism and high thyroid goiter. 10. History of hiatal hernia. 11. History of gastritis. 12. History of colon cancer and breast cancer. 13. Dementia. 14. Tremors. 15. Anxiety. 16. Depression. 17. Osteoarthritis and chronic pain. PLAN: FINAL ID= [STREPTOCOCCUS MITIS/ORALIS GRP]contamination PLAN: 1. COVID-[address] Dorsey. Oxygen requirements are going up to 3 L/min. He will start her on IV Decadron today 2. Possible sepsis with gram-positive rods with branching filaments. Consulted Dr. Meagan Sanz for Infectious Disease evaluation and management. The patient has been started on IV Zosyn and Bactrim DS. Blood culture from 1124, 1 culture showed Staphylococcus mitis/paralysis. Likely contamination. Second blood culture from October 15 has been reported positive today. ID pending. Blood cultures from October 17 are negative so far. 3. Diabetes mellitus type 2. Continue to monitor. 4. Hypertension, not controlled. We will order IV p.r.n. hydralazine. Creatinine is increasing. Patient had nausea yesterday. Hold hydrochlorothiazide and potassium chloride today. Discussed with staff. 5. Osteoarthritis. Continue pain medications. 6. Dementia with acute metabolic encephalopathy. Multifactorial. Discussed with staff. Hold Xanax this morning. For details, please refer to the orders. Long-term as well as short-term prognosis of this patient is very poor due to her multiple medical problems. Discussed with caregiver, condition treatment and options on 10/16/2021 and son on 10/17/2021. Detailed message left for son today. Check labs in a.m. Plan Plan For more details regarding further plans, please refer to the orders. Justifications for Admission Other Justification MERON RIOS MD Oct 20, 2021 08:08
[2021-10-20 08:28] LABS: BASO % 0 % (0-3); EOS % 0 % (0-3); HEMATOCRIT 39.2 % (36.0-47.0); HEMOGLOBIN 12.5 g/dL (12.0-15.5); LYMPH # 0.7 x10^3/uL (1.0-4.8); LYMPH % 11 % (24-48); MEAN CORPUSCULAR HEMOGLOBIN 27 pg (25-35); MEAN CORPUSCULAR HGB CONC 32 g/dL (31-37); MEAN CORPUSCULAR VOLUME 85 fL (79-100); MONO # 0.6 x10^3/uL (0.0-1.1); MONO % 10 % (0-9); NEUT # 4.6 x10^3/uL (1.8-7.7); NEUT % 79 % (31-73); PLATELET COUNT 114 x10^3/uL (140-400); RED CELL DISTRIBUTION WIDTH 14.2 % (11.5-14.5); WHITE BLOOD COUNT 5.8 x10^3/uL (4.0-11.0)
[2021-10-20 08:33] LABS: CALCIUM 8.5 mg/dL (8.5-10.1); CREATININE 1.2 mg/dL (0.6-1.0); GFR 42.9; POTASSIUM 4.4 mmol/L (3.5-5.1)
--- NOTE | 2021-10-20 08:40 | PDOC ---
Infectious Disease Note Subjective: Subjective Patient sleepy arousable States feels tired, dry mouth On O2 by nasal cannula T-max 100.9 Discussed with RN Vital Signs: Vital Signs Vital Signs Date Time Temp Pulse Resp B/P (MAP) Pulse Ox O2 Delivery O2 Flow Rate FiO2 10/20/21 02:35 98.1 78 18 139/69 (92) 93 Nasal Cannula 1.0 98.1 Physical Exam: PHYSICAL EXAM GENERAL: Sleepy but arousable female appears tired HEENT: Normocephalic, atraumatic. Anicteric. NECK: Supple, no JVD, no lymphadenopathy. LUNGS: Decreased breath sounds at the bases. No wheezing. HEART: S1, S2. No murmurs. ABDOMEN: Soft, obese. Bowel sounds present, nontender, nondistended. EXTREMITIES: No edema, no cyanosis. DERMATOLOGIC: Warm, dry, no generalized rash. NEUROLOGIC: Sleepy arousable somewhat confused hard of hearing. PSYCHIATRIC: Appropriate, calm. Medications: Inpatient Meds: Medications reviewed. Labs: Lab Laboratory Tests Test 10/19/21 11:20 10/19/21 16:30 10/19/21 17:04 10/19/21 19:44 Glucose (Fingerstick) 111 mg/dL (70-99) 219 mg/dL (70-99) 104 mg/dL (70-99) 116 mg/dL (70-99) Test 10/20/21 07:55 Sodium Level 136 mmol/L (136-145) Potassium Level 4.4 mmol/L (3.5-5.1) Chloride Level 99 mmol/L (98-107) Carbon Dioxide Level 25 mmol/L (21-32) Anion Gap 12 (6-14) Blood Urea Nitrogen 26 mg/dL (7-20) Creatinine 1.2 mg/dL (0.6-1.0) Estimated GFR (Cockcroft-Gault) 42.9 Glucose Level 92 mg/dL (70-99) Calcium Level 8.5 mg/dL (8.5-10.1) Objective: Assessment: 1. Bacteremia, GPR with filaments, 1 out of 4 bottles present on admission, Strep mitis/oralis Could be contaminant 2. Dyspnea, likely from COVID-19 pneumonia. 3. Chronic obstructive pulmonary disease, chronic respiratory failure, on home O2 at 2 liters unchanged at this time. 4. Leukopenia. 5. Bandemia. 6. Generalized weakness and myalgias. Plan: Plan of Care Continue supportive care Continue Zosyn for now Follow-up blood cultures Maintain aspiration precaution D/W OSCAR ALVARADO MD Oct 20, 2021 08:40
[2021-10-20] MEDS: ALPRAZolam 0.25 MG TABLET PO SCH ×2 (09:00→21:58)
--- NOTE | 2021-10-20 09:26 | PDOC ---
PULMONARY PROGRESS NOTES DATE: 10/20/21 TIME: 09:25 Subjective Remains confused. Oxygen requirement slightly increased to 3 L. Mild shortness of breath. Vitals Vital Signs Date Time Temp Pulse Resp B/P (MAP) Pulse Ox O2 Delivery O2 Flow Rate FiO2 10/20/21 07:59 100.0 85 20 174/61 (98) 93 Nasal Cannula 2.0 100.0 Comments Visual exam done due to COVID-19. No paradoxical breathing. No skin rash no leg edema Labs Laboratory Tests Test 10/18/21 11:57 10/18/21 16:54 10/18/21 21:49 10/19/21 08:31 Glucose (Fingerstick) 87 mg/dL (70-99) 72 mg/dL (70-99) 71 mg/dL (70-99) 90 mg/dL (70-99) Test 10/19/21 11:20 10/19/21 16:30 10/19/21 17:04 10/19/21 19:44 Glucose (Fingerstick) 111 mg/dL (70-99) 219 mg/dL (70-99) 104 mg/dL (70-99) 116 mg/dL (70-99) Test 10/20/21 07:55 10/20/21 08:42 White Blood Count 5.8 x10^3/uL (4.0-11.0) Red Blood Count 4.60 x10^6/uL (3.50-5.40) Hemoglobin 12.5 g/dL (12.0-15.5) Hematocrit 39.2 % (36.0-47.0) Mean Corpuscular Volume 85 fL (79-100) Mean Corpuscular Hemoglobin 27 pg (25-35) Mean Corpuscular Hemoglobin Concent 32 g/dL (31-37) Red Cell Distribution Width 14.2 % (11.5-14.5) Platelet Count 114 x10^3/uL (140-400) Neutrophils (%) (Auto) 79 % (31-73) Lymphocytes (%) (Auto) 11 % (24-48) Monocytes (%) (Auto) 10 % (0-9) Eosinophils (%) (Auto) 0 % (0-3) Basophils (%) (Auto) 0 % (0-3) Neutrophils # (Auto) 4.6 x10^3/uL (1.8-7.7) Lymphocytes # (Auto) 0.7 x10^3/uL (1.0-4.8) Monocytes # (Auto) 0.6 x10^3/uL (0.0-1.1) Eosinophils # (Auto) 0.0 x10^3/uL (0.0-0.7) Basophils # (Auto) 0.0 x10^3/uL (0.0-0.2) Sodium Level 136 mmol/L (136-145) Potassium Level 4.4 mmol/L (3.5-5.1) Chloride Level 99 mmol/L (98-107) Carbon Dioxide Level 25 mmol/L (21-32) Anion Gap 12 (6-14) Blood Urea Nitrogen 26 mg/dL (7-20) Creatinine 1.2 mg/dL (0.6-1.0) Estimated GFR (Cockcroft-Gault) 42.9 Glucose Level 92 mg/dL (70-99) Calcium Level 8.5 mg/dL (8.5-10.1) Glucose (Fingerstick) 85 mg/dL (70-99) Laboratory Tests Test 10/19/21 11:20 10/19/21 16:30 10/19/21 17:04 10/19/21 19:44 Glucose (Fingerstick) 111 mg/dL (70-99) 219 mg/dL (70-99) 104 mg/dL (70-99) 116 mg/dL (70-99) Test 10/20/21 07:55 10/20/21 08:42 White Blood Count 5.8 x10^3/uL (4.0-11.0) Red Blood Count 4.60 x10^6/uL (3.50-5.40) Hemoglobin 12.5 g/dL (12.0-15.5) Hematocrit 39.2 % (36.0-47.0) Mean Corpuscular Volume 85 fL (79-100) Mean Corpuscular Hemoglobin 27 pg (25-35) Mean Corpuscular Hemoglobin Concent 32 g/dL (31-37) Red Cell Distribution Width 14.2 % (11.5-14.5) Platelet Count 114 x10^3/uL (140-400) Neutrophils (%) (Auto) 79 % (31-73) Lymphocytes (%) (Auto) 11 % (24-48) Monocytes (%) (Auto) 10 % (0-9) Eosinophils (%) (Auto) 0 % (0-3) Basophils (%) (Auto) 0 % (0-3) Neutrophils # (Auto) 4.6 x10^3/uL (1.8-7.7) Lymphocytes # (Auto) 0.7 x10^3/uL (1.0-4.8) Monocytes # (Auto) 0.6 x10^3/uL (0.0-1.1) Eosinophils # (Auto) 0.0 x10^3/uL (0.0-0.7) Basophils # (Auto) 0.0 x10^3/uL (0.0-0.2) Sodium Level 136 mmol/L (136-145) Potassium Level 4.4 mmol/L (3.5-5.1) Chloride Level 99 mmol/L (98-107) Carbon Dioxide Level 25 mmol/L (21-32) Anion Gap 12 (6-14) Blood Urea Nitrogen 26 mg/dL (7-20) Creatinine 1.2 mg/dL (0.6-1.0) Estimated GFR (Cockcroft-Gault) 42.9 Glucose Level 92 mg/dL (70-99) Calcium Level 8.5 mg/dL (8.5-10.1) Glucose (Fingerstick) 85 mg/dL (70-99) Medications Active Scripts Medications Dose Route/Sig Max Daily Dose Days Date Category Vitamin D (Cholecalciferol (Vitamin D3)) 2,000 Unit Capsule 1 Cap PO DAILY 12/24/14 Reported Calcium 500 + Vit D 400 Tablet (Calcium Carbonate/Vitamin D3) 1 Each Tablet 1 Each PO DAILY 12/24/14 Reported Magnesium (Magnesium Oxide) 250 Mg Tablet 250 Mg PO BID 12/24/14 Reported Fish Oil 1,000 Mg Capsule ([place]-3 Fatty Acids/Fish Oil) 1 Each Capsule 2 Each PO DAILY 12/24/14 Reported Xanax (Alprazolam) 0.25 Mg Tablet 1 Tab PO BID 12/24/14 Reported Potassium Chloride 10 Meq Capsule.er 10 Meq PO DAILY 05/16/14 Reported Cymbalta (Duloxetine Hcl) 60 Mg Capsule.dr 60 Mg PO DAILY 05/16/14 Reported Metoprolol Succinate ( Xl ) (Metoprolol Succinate) 100 Mg Tab.er.24h 100 Mg PO DAILY 05/16/14 Reported Cetirizine Hcl 10 Mg Tab.chew 10 Mg PO DAILY 05/16/14 Reported Hydrocodone-Apap 7.5-325 (Hydrocodone Bit/Acetaminophen) 1 Each Tablet 1 Tab PO PRN Q6HRS PRN 05/16/14 Reported Simvastatin 20 Mg Tablet 20 Mg PO DAILY 05/16/14 Reported Flonase (Fluticasone Propionate) 16 Gm [place].susp 1 [place] NS DAILY PRN 05/16/14 Reported Losartan-Hctz 100-12.5 Mg Tab (Losartan/Hydrochlorothiazide) 1 Each Tablet 1 Each PO DAILY 05/16/14 Reported Protonix (Pantoprazole Sodium) 40 Mg Granpkt.dr 40 Mg PO DAILY 05/16/14 Reported Ventolin Hfa Inhaler (Albuterol Sulfate) 18 Gm Hfa.aer.ad 2 Puff INH QID PRN 05/16/14 Reported Aspirin 81 Mg Tab.chew 81 Mg PO DAILY 05/16/14 Reported Spiriva (Tiotropium [place]) 18 Mcg Cap.w.dev 2 Inh IH DAILY 05/16/14 Reported Impression . 1. Dyspnea secondary to COVID-19 viral pneumonia. 2. The patient with chronic obstructive pulmonary disease, on home oxygen at 2 liters. 3. Bacteremia. FINAL ID= [STREPTOCOCCUS MITIS/ORALIS GRP], likely contaminant 4. History of chronic obstructive pulmonary disease. 5. Abnormal chest x-ray with faint interstitial infiltrates suggestive of COVID-19 viral pneumonia. 6. Fever secondary to COVID-19 pneumonia. Cannot exclude superimposed bacterial pneumonia 7. Encephalopathy secondary to fever and COVID-19 viral pneumonia Plan . RECOMMENDATIONS: 1. Discussed with Dr. Henley. Oxygen requirement increased to 3 L last night. 2. We will initiate dexamethasone. 3. Continue DuoNebs. 5. Follow Infectious Disease recommendations regarding bacteremia. Likely contaminant. 6. Continue home medications. 7. DVT prophylaxis. 8. Discussed with HUSSAIN GURROLA MD Oct 20, 2021 09:26
[2021-10-20] MEDS: CHOLECALCIFEROL (VITAMIN D3) 1,000 UNIT TABLET PO SCH (09:41)
[2021-10-20] MEDS: METOPROLOL SUCC 24HR ER 100 MG TAB.ER.24H. PO SCH (09:41)
[2021-10-20] MEDS: CETIRIZINE HCL 10 MG TABLET. PO SCH (09:41)
[2021-10-20] MEDS: CALCIUM CARB/VIT D3 500/200 TABLET. PO SCH (09:41)
[2021-10-20] MEDS: ASPIRIN CHEWABLE 81 MG TABLET. PO SCH (09:41)
[2021-10-20] MEDS: hydroCHLOROthiazide 12.5 MG CAPSULE PO SCH (09:42)
[2021-10-20] MEDS: PANTOPRAZOLE 40 MG TABLET.DR. PO SCH (09:42)
[2021-10-20] MEDS: MAGNESIUM OXIDE 400 MG TABLET PO SCH ×2 (09:42→21:58)
[2021-10-20] MEDS: LOSARTAN POTASSIUM 50 MG TABLET. PO SCH (09:42)
[2021-10-20] MEDS: LACTOBACILLUS RHAMNOSUS GG 1 CAPSULE. PO SCH ×2 (09:43→21:58)
[2021-10-20] MEDS: ENOXAPARIN 40 MG/0.4 ML SYRINGE. SQ SCH (09:43)
[2021-10-20] MEDS: DULoxetine HCL 30 MG CAPSULE.DR PO SCH (09:43)
[2021-10-20] MEDS: OMEGA-3 FATTY ACIDS/FISH OIL 1,000 MG CAPSULE. PO SCH (09:43)
[2021-10-20] MEDS: POTASSIUM CHLORIDE 10 MEQ TABLET.ER. PO SCH (09:43)
--- NOTE | 2021-10-20 10:33 | NUR ---
SW following. Discussed with RN, pt from home with son, uses 2L oxygen at home, regular diet. COVID-19 positive (vaccinated). Pulmonology and ID following. RN believes pt needs PT/OT. SW requested this be ordered. SW will continue to follow.
[2021-10-20 11:00] VITALS: BP 137/78
[2021-10-20] MEDS: DEXAMETHASONE 4 MG TABLET PO SCH (11:39)
[2021-10-20 15:31] VITALS: BP 143/51
[2021-10-20 19:00] VITALS: BP 133/52
[2021-10-20] MEDS: HYDROcodone/APAP 7.5/325MG 1 TAB TABLET PO PRN (21:58)
[2021-10-20] MEDS: SIMVASTATIN 20 MG TABLET PO SCH (21:58)
[2021-10-20 23:00] VITALS: BP 144/62
[2021-10-21 03:00] VITALS: BP 140/65
[2021-10-21] MEDS: PIPERACILLIN/TAZOBACTAM 3.375 GM in IV NORMAL SALINE 50ML 50 ML IV SCH (05:25)
[2021-10-21 07:00] VITALS: BP 136/56
[2021-10-21 07:08] LABS: BASO % 0 % (0-3); EOS % 0 % (0-3); HEMATOCRIT 38.8 % (36.0-47.0); HEMOGLOBIN 12.4 g/dL (12.0-15.5); LYMPH # 0.5 x10^3/uL (1.0-4.8); LYMPH % 17 % (24-48); MEAN CORPUSCULAR HEMOGLOBIN 27 pg (25-35); MEAN CORPUSCULAR HGB CONC 32 g/dL (31-37); MEAN CORPUSCULAR VOLUME 85 fL (79-100); MONO # 0.3 x10^3/uL (0.0-1.1); MONO % 11 % (0-9); NEUT # 2.2 x10^3/uL (1.8-7.7); NEUT % 72 % (31-73); PLATELET COUNT 105 x10^3/uL (140-400); RED BLOOD COUNT 4.59 x10^6/uL (3.50-5.40); RED CELL DISTRIBUTION WIDTH 14.3 % (11.5-14.5)
[2021-10-21 07:25] LABS: ALBUMIN 2.4 g/dL (3.4-5.0); ALBUMIN/GLOBULIN RATIO 0.6 (1.0-1.7); CALCIUM 8.6 mg/dL (8.5-10.1); CREATININE 1.2 mg/dL (0.6-1.0); GFR 42.9; POTASSIUM 4.3 mmol/L (3.5-5.1); TOTAL BILIRUBIN 0.4 mg/dL (0.2-1.0); TOTAL PROTEIN 6.3 g/dL (6.4-8.2)
[2021-10-21] MEDS: INSULIN LISPRO 300 UNITS/3 ML VIAL. SQ SCH ×2 (07:30→16:30)
--- NOTE | 2021-10-21 08:23 | PDOC ---
PULMONARY PROGRESS NOTES DATE: 10/21/21 TIME: 08:22 Subjective Currently on 2 L of oxygen, not more short of air. Vitals Vital Signs Date Time Temp Pulse Resp B/P (MAP) Pulse Ox O2 Delivery O2 Flow Rate FiO2 10/21/21 03:00 97.6 63 23 140/65 (90) 92 Nasal Cannula 2.0 97.6 Comments Visual exam done due to COVID-19. No paradoxical breathing. No skin rash no leg edema Labs Laboratory Tests Test 10/19/21 08:31 10/19/21 11:20 10/19/21 16:30 10/19/21 17:04 Glucose (Fingerstick) 90 mg/dL (70-99) 111 mg/dL (70-99) 219 mg/dL (70-99) 104 mg/dL (70-99) Test 10/19/21 19:44 10/20/21 07:55 10/20/21 08:42 10/20/21 11:20 Glucose (Fingerstick) 116 mg/dL (70-99) 85 mg/dL (70-99) 121 mg/dL (70-99) White Blood Count 5.8 x10^3/uL (4.0-11.0) Red Blood Count 4.60 x10^6/uL (3.50-5.40) Hemoglobin 12.5 g/dL (12.0-15.5) Hematocrit 39.2 % (36.0-47.0) Mean Corpuscular Volume 85 fL (79-100) Mean Corpuscular Hemoglobin 27 pg (25-35) Mean Corpuscular Hemoglobin Concent 32 g/dL (31-37) Red Cell Distribution Width 14.2 % (11.5-14.5) Platelet Count 114 x10^3/uL (140-400) Neutrophils (%) (Auto) 79 % (31-73) Lymphocytes (%) (Auto) 11 % (24-48) Monocytes (%) (Auto) 10 % (0-9) Eosinophils (%) (Auto) 0 % (0-3) Basophils (%) (Auto) 0 % (0-3) Neutrophils # (Auto) 4.6 x10^3/uL (1.8-7.7) Lymphocytes # (Auto) 0.7 x10^3/uL (1.0-4.8) Monocytes # (Auto) 0.6 x10^3/uL (0.0-1.1) Eosinophils # (Auto) 0.0 x10^3/uL (0.0-0.7) Basophils # (Auto) 0.0 x10^3/uL (0.0-0.2) Sodium Level 136 mmol/L (136-145) Potassium Level 4.4 mmol/L (3.5-5.1) Chloride Level 99 mmol/L (98-107) Carbon Dioxide Level 25 mmol/L (21-32) Anion Gap 12 (6-14) Blood Urea Nitrogen 26 mg/dL (7-20) Creatinine 1.2 mg/dL (0.6-1.0) Estimated GFR (Cockcroft-Gault) 42.9 Glucose Level 92 mg/dL (70-99) Calcium Level 8.5 mg/dL (8.5-10.1) Test 10/20/21 16:22 10/20/21 19:30 10/21/21 05:40 Glucose (Fingerstick) 122 mg/dL (70-99) 124 mg/dL (70-99) White Blood Count 3.0 x10^3/uL (4.0-11.0) Red Blood Count 4.59 x10^6/uL (3.50-5.40) Hemoglobin 12.4 g/dL (12.0-15.5) Hematocrit 38.8 % (36.0-47.0) Mean Corpuscular Volume 85 fL (79-100) Mean Corpuscular Hemoglobin 27 pg (25-35) Mean Corpuscular Hemoglobin Concent 32 g/dL (31-37) Red Cell Distribution Width 14.3 % (11.5-14.5) Platelet Count 105 x10^3/uL (140-400) Neutrophils (%) (Auto) 72 % (31-73) Lymphocytes (%) (Auto) 17 % (24-48) Monocytes (%) (Auto) 11 % (0-9) Eosinophils (%) (Auto) 0 % (0-3) Basophils (%) (Auto) 0 % (0-3) Neutrophils # (Auto) 2.2 x10^3/uL (1.8-7.7) Lymphocytes # (Auto) 0.5 x10^3/uL (1.0-4.8) Monocytes # (Auto) 0.3 x10^3/uL (0.0-1.1) Eosinophils # (Auto) 0.0 x10^3/uL (0.0-0.7) Basophils # (Auto) 0.0 x10^3/uL (0.0-0.2) Sodium Level 137 mmol/L (136-145) Potassium Level 4.3 mmol/L (3.5-5.1) Chloride Level 102 mmol/L (98-107) Carbon Dioxide Level 26 mmol/L (21-32) Anion Gap 9 (6-14) Blood Urea Nitrogen 38 mg/dL (7-20) Creatinine 1.2 mg/dL (0.6-1.0) Estimated GFR (Cockcroft-Gault) 42.9 BUN/Creatinine Ratio 32 (6-20) Glucose Level 133 mg/dL (70-99) Calcium Level 8.6 mg/dL (8.5-10.1) Total Bilirubin 0.4 mg/dL (0.2-1.0) Aspartate Amino Transf (AST/SGOT) 32 U/L (15-37) Alanine Aminotransferase (ALT/SGPT) 28 U/L (14-59) Alkaline Phosphatase 48 U/L (46-116) Total Protein 6.3 g/dL (6.4-8.2) Albumin 2.4 g/dL (3.4-5.0) Albumin/Globulin Ratio 0.6 (1.0-1.7) Laboratory Tests Test 10/20/21 08:42 10/20/21 11:20 10/20/21 16:22 10/20/21 19:30 Glucose (Fingerstick) 85 mg/dL (70-99) 121 mg/dL (70-99) 122 mg/dL (70-99) 124 mg/dL (70-99) Test 10/21/21 05:40 White Blood Count 3.0 x10^3/uL (4.0-11.0) Red Blood Count 4.59 x10^6/uL (3.50-5.40) Hemoglobin 12.4 g/dL (12.0-15.5) Hematocrit 38.8 % (36.0-47.0) Mean Corpuscular Volume 85 fL (79-100) Mean Corpuscular Hemoglobin 27 pg (25-35) Mean Corpuscular Hemoglobin Concent 32 g/dL (31-37) Red Cell Distribution Width 14.3 % (11.5-14.5) Platelet Count 105 x10^3/uL (140-400) Neutrophils (%) (Auto) 72 % (31-73) Lymphocytes (%) (Auto) 17 % (24-48) Monocytes (%) (Auto) 11 % (0-9) Eosinophils (%) (Auto) 0 % (0-3) Basophils (%) (Auto) 0 % (0-3) Neutrophils # (Auto) 2.2 x10^3/uL (1.8-7.7) Lymphocytes # (Auto) 0.5 x10^3/uL (1.0-4.8) Monocytes # (Auto) 0.3 x10^3/uL (0.0-1.1) Eosinophils # (Auto) 0.0 x10^3/uL (0.0-0.7) Basophils # (Auto) 0.0 x10^3/uL (0.0-0.2) Sodium Level 137 mmol/L (136-145) Potassium Level 4.3 mmol/L (3.5-5.1) Chloride Level 102 mmol/L (98-107) Carbon Dioxide Level 26 mmol/L (21-32) Anion Gap 9 (6-14) Blood Urea Nitrogen 38 mg/dL (7-20) Creatinine 1.2 mg/dL (0.6-1.0) Estimated GFR (Cockcroft-Gault) 42.9 BUN/Creatinine Ratio 32 (6-20) Glucose Level 133 mg/dL (70-99) Calcium Level 8.6 mg/dL (8.5-10.1) Total Bilirubin 0.4 mg/dL (0.2-1.0) Aspartate Amino Transf (AST/SGOT) 32 U/L (15-37) Alanine Aminotransferase (ALT/SGPT) 28 U/L (14-59) Alkaline Phosphatase 48 U/L (46-116) Total Protein 6.3 g/dL (6.4-8.2) Albumin 2.4 g/dL (3.4-5.0) Albumin/Globulin Ratio 0.6 (1.0-1.7) Medications Active Scripts Medications Dose Route/Sig Max Daily Dose Days Date Category Vitamin D (Cholecalciferol (Vitamin D3)) 2,000 Unit Capsule 1 Cap PO DAILY 12/24/14 Reported Calcium 500 + Vit D 400 Tablet (Calcium Carbonate/Vitamin D3) 1 Each Tablet 1 Each PO DAILY 12/24/14 Reported Magnesium (Magnesium Oxide) 250 Mg Tablet 250 Mg PO BID 12/24/14 Reported Fish Oil 1,000 Mg Capsule ([place]-3 Fatty Acids/Fish Oil) 1 Each Capsule 2 Each PO DAILY 12/24/14 Reported Xanax (Alprazolam) 0.25 Mg Tablet 1 Tab PO BID 12/24/14 Reported Potassium Chloride 10 Meq Capsule.er 10 Meq PO DAILY 05/16/14 Reported Cymbalta (Duloxetine Hcl) 60 Mg Capsule.dr 60 Mg PO DAILY 05/16/14 Reported Metoprolol Succinate ( Xl ) (Metoprolol Succinate) 100 Mg Tab.er.24h 100 Mg PO DAILY 05/16/14 Reported Cetirizine Hcl 10 Mg Tab.chew 10 Mg PO DAILY 05/16/14 Reported Hydrocodone-Apap 7.5-325 (Hydrocodone Bit/Acetaminophen) 1 Each Tablet 1 Tab PO PRN Q6HRS PRN 05/16/14 Reported Simvastatin 20 Mg Tablet 20 Mg PO DAILY 05/16/14 Reported Flonase (Fluticasone Propionate) 16 Gm [place].susp 1 [place] NS DAILY PRN 05/16/14 Reported Losartan-Hctz 100-12.5 Mg Tab (Losartan/Hydrochlorothiazide) 1 Each Tablet 1 Each PO DAILY 05/16/14 Reported Protonix (Pantoprazole Sodium) 40 Mg Granpkt.dr 40 Mg PO DAILY 05/16/14 Reported Ventolin Hfa Inhaler (Albuterol Sulfate) 18 Gm Hfa.aer.ad 2 Puff INH QID PRN 05/16/14 Reported Aspirin 81 Mg Tab.chew 81 Mg PO DAILY 05/16/14 Reported Spiriva (Tiotropium [place]) 18 Mcg Cap.w.dev 2 Inh IH DAILY 05/16/14 Reported Impression . 1. Progressive dyspnea secondary to COVID-19 viral pneumonia possible bacterial pneumonia 2. The patient with chronic obstructive pulmonary disease, on home oxygen at 2 liters. 3. Bacteremia. FINAL ID= [STREPTOCOCCUS MITIS/ORALIS GRP], likely contaminant 4. History of chronic obstructive pulmonary disease. 5. Abnormal chest x-ray with faint interstitial infiltrates suggestive of COVID-19 viral pneumonia. 6. Fever secondary to COVID-19 pneumonia. Cannot exclude superimposed bacterial pneumonia 7. Toxic encephalopathy secondary to fever and COVID-19 viral pneumonia Plan . Updated 10/21 Continue current support Dexamethasone Nebulized treatments Defer antibiotics per ID. RECOMMENDATIONS: 1. Discussed with Dr. Henley. Oxygen requirement increased to 3 L last night. 2. We will initiate dexamethasone. 3. Continue DuoNebs. 5. Follow Infectious Disease recommendations regarding bacteremia. Likely contaminant. 6. Continue home medications. 7. DVT prophylaxis. 8. Discussed with DAMEON. TUNG STAFFORD MD Oct 21, 2021 08:23
--- NOTE | 2021-10-21 08:45 | PDOC ---
IM PROGRESS NOTES- Subjective Subjective Has some cough and congestion. Denies dyspnea. Objective Vitals/I&O Vital Signs Date Time Temp Pulse Resp B/P (MAP) Pulse Ox O2 Delivery O2 Flow Rate FiO2 10/21/21 03:00 97.6 63 23 140/65 (90) 92 Nasal Cannula 2.0 97.6 I & O 10/20/21 10/20/21 10/21/21 15:00 23:00 07:00 Intake Total 100 ml 100 ml 0 ml Balance 100 ml 100 ml 0 ml Physical Exam Physical Exam General Appearance - alert and in mild distress, On O2 4 lit/min. Chest - decreased breath sounds at bases Heart - S1 and S2 normal Abdomen - soft, non tender Neurological - alert and oriented,hard of hearing,forgetful Musculoskeletal - generalized weakness Extremities - no edema Labs Laboratory Tests Test 10/20/21 11:20 10/20/21 16:22 10/20/21 19:30 10/21/21 05:40 Glucose (Fingerstick) 121 mg/dL (70-99) H 122 mg/dL (70-99) H 124 mg/dL (70-99) H White Blood Count 3.0 x10^3/uL (4.0-11.0) L Red Blood Count 4.59 x10^6/uL (3.50-5.40) Hemoglobin 12.4 g/dL (12.0-15.5) Hematocrit 38.8 % (36.0-47.0) Mean Corpuscular Volume 85 fL (79-100) Mean Corpuscular Hemoglobin 27 pg (25-35) Mean Corpuscular Hemoglobin Concent 32 g/dL (31-37) Red Cell Distribution Width 14.3 % (11.5-14.5) Platelet Count 105 x10^3/uL (140-400) L Neutrophils (%) (Auto) 72 % (31-73) Lymphocytes (%) (Auto) 17 % (24-48) L Monocytes (%) (Auto) 11 % (0-9) H Eosinophils (%) (Auto) 0 % (0-3) Basophils (%) (Auto) 0 % (0-3) Neutrophils # (Auto) 2.2 x10^3/uL (1.8-7.7) Lymphocytes # (Auto) 0.5 x10^3/uL (1.0-4.8) L Monocytes # (Auto) 0.3 x10^3/uL (0.0-1.1) Eosinophils # (Auto) 0.0 x10^3/uL (0.0-0.7) Basophils # (Auto) 0.0 x10^3/uL (0.0-0.2) Sodium Level 137 mmol/L (136-145) Potassium Level 4.3 mmol/L (3.5-5.1) Chloride Level 102 mmol/L (98-107) Carbon Dioxide Level 26 mmol/L (21-32) Anion Gap 9 (6-14) Blood Urea Nitrogen 38 mg/dL (7-20) H Creatinine 1.2 mg/dL (0.6-1.0) H Estimated GFR (Cockcroft-Gault) 42.9 BUN/Creatinine Ratio 32 (6-20) H Glucose Level 133 mg/dL (70-99) H Calcium Level 8.6 mg/dL (8.5-10.1) Total Bilirubin 0.4 mg/dL (0.2-1.0) Aspartate Amino Transferase (AST) 32 U/L (15-37) Alanine Aminotransferase (ALT) 28 U/L (14-59) Alkaline Phosphatase 48 U/L (46-116) Total Protein 6.3 g/dL (6.4-8.2) L Albumin 2.4 g/dL (3.4-5.0) L Albumin/Globulin Ratio 0.6 (1.0-1.7) L Test 10/21/21 08:25 Glucose (Fingerstick) 120 mg/dL (70-99) H Laboratory Tests 10/21/21 05:40 Laboratory Tests 10/21/21 05:40 Meds Current Medications Medications (Trade) Dose Ordered Sig/Mian Route PRN Reason Start Time Stop Time Status Last Admin Dose Admin Dexamethasone (Decadron) 6 mg [id number] PO 10/20/21 11:00 10/20/21 11:39 Assessment Assessment 1. COVID-19 pneumonia. 2. Sepsis with abnormal blood culture. 3. Acute on chronic respiratory failure. 4. Chronic obstructive pulmonary disease exacerbation. 5. Hypertension. 6. Diabetes mellitus type 2. 7. Peripheral artery disease. 8. Gastroesophageal reflux disease. 9. Hypothyroidism and high thyroid goiter. 10. History of hiatal hernia. 11. History of gastritis. 12. History of colon cancer and breast cancer. 13. Dementia. 14. Tremors. 15. Anxiety. 16. Depression. 17. Osteoarthritis and chronic pain. PLAN: FINAL ID= [STREPTOCOCCUS MITIS/ORALIS GRP]contamination PLAN: 1. COVID-[address] Dorsey. Oxygen requirements are going up to 4 L/min. On IV Decadron. 2. Possible sepsis with gram-positive rods with branching filaments. Consulted Dr. Meagan Sanz for Infectious Disease evaluation and management. The patient has been started on IV Zosyn and Bactrim DS. Blood culture from 10/15, 1 culture showed Staphylococcus mitis/paralysis. Likely contamination. Second blood culture from October 15 has been reported positive . ID pending. Blood cultures from October 17 are negative so far. Zosyn changed to Rocephin. 3. Diabetes mellitus type 2. Continue to monitor. 4. Hypertension, not controlled. We will order IV p.r.n. hydralazine. Blood pressure control is improving. Creatinine is 1.2 however BUN has increased to 38. Recheck labs in a.m. 5. Osteoarthritis. Continue pain medications. 6. Dementia with acute metabolic encephalopathy. Multifactorial. Discussed with staff. Hold Xanax this morning. For details, please refer to the orders. Long-term as well as short-term prognosis of this patient is very poor due to her multiple medical problems. Patient's son is trying to get her out of the hospital and take her home per patient's DPOA Sahara Boone. Patient's son is not the DPOA. Condition treatment options discussed with patient's DPOA Sahara on 10-20-2021 at [phone] she wants the patient to stay in the hospital. Check labs in a.m. Plan Plan For more details regarding further plans, please refer to the orders. Justifications for Admission Other Justification MERON RIOS MD Oct 21, 2021 08:45
--- NOTE | 2021-10-21 09:08 | PDOC ---
Infectious Disease Note Subjective: Subjective Patient sleepy arousable Intermittently confused On O2 4 L by nasal cannula Afebrile for last 24 hours Discussed with RN Vital Signs: Vital Signs Vital Signs Date Time Temp Pulse Resp B/P (MAP) Pulse Ox O2 Delivery O2 Flow Rate FiO2 10/21/21 07:00 97.7 62 20 136/56 (82) 94 Nasal Cannula 2.0 97.7 Physical Exam: PHYSICAL EXAM GENERAL: Sleepy but arousable female appears tired HEENT: Normocephalic, atraumatic. Anicteric. NECK: Supple, no JVD, no lymphadenopathy. LUNGS: Decreased breath sounds at the bases. No wheezing. HEART: S1, S2. No murmurs. ABDOMEN: Soft, obese. Bowel sounds present, nontender, nondistended. EXTREMITIES: No edema, no cyanosis. DERMATOLOGIC: Warm, dry, no generalized rash. NEUROLOGIC: Sleepy arousable somewhat confused hard of hearing. PSYCHIATRIC: Appropriate, calm. Medications: Inpatient Meds: Medications reviewed. Labs: Lab Laboratory Tests Test 10/20/21 11:20 10/20/21 16:22 10/20/21 19:30 10/21/21 05:40 Glucose (Fingerstick) 121 mg/dL (70-99) 122 mg/dL (70-99) 124 mg/dL (70-99) White Blood Count 3.0 x10^3/uL (4.0-11.0) Red Blood Count 4.59 x10^6/uL (3.50-5.40) Hemoglobin 12.4 g/dL (12.0-15.5) Hematocrit 38.8 % (36.0-47.0) Mean Corpuscular Volume 85 fL (79-100) Mean Corpuscular Hemoglobin 27 pg (25-35) Mean Corpuscular Hemoglobin Concent 32 g/dL (31-37) Red Cell Distribution Width 14.3 % (11.5-14.5) Platelet Count 105 x10^3/uL (140-400) Neutrophils (%) (Auto) 72 % (31-73) Lymphocytes (%) (Auto) 17 % (24-48) Monocytes (%) (Auto) 11 % (0-9) Eosinophils (%) (Auto) 0 % (0-3) Basophils (%) (Auto) 0 % (0-3) Neutrophils # (Auto) 2.2 x10^3/uL (1.8-7.7) Lymphocytes # (Auto) 0.5 x10^3/uL (1.0-4.8) Monocytes # (Auto) 0.3 x10^3/uL (0.0-1.1) Eosinophils # (Auto) 0.0 x10^3/uL (0.0-0.7) Basophils # (Auto) 0.0 x10^3/uL (0.0-0.2) Sodium Level 137 mmol/L (136-145) Potassium Level 4.3 mmol/L (3.5-5.1) Chloride Level 102 mmol/L (98-107) Carbon Dioxide Level 26 mmol/L (21-32) Anion Gap 9 (6-14) Blood Urea Nitrogen 38 mg/dL (7-20) Creatinine 1.2 mg/dL (0.6-1.0) Estimated GFR (Cockcroft-Gault) 42.9 BUN/Creatinine Ratio 32 (6-20) Glucose Level 133 mg/dL (70-99) Calcium Level 8.6 mg/dL (8.5-10.1) Total Bilirubin 0.4 mg/dL (0.2-1.0) Aspartate Amino Transf (AST/SGOT) 32 U/L (15-37) Alanine Aminotransferase (ALT/SGPT) 28 U/L (14-59) Alkaline Phosphatase 48 U/L (46-116) Total Protein 6.3 g/dL (6.4-8.2) Albumin 2.4 g/dL (3.4-5.0) Albumin/Globulin Ratio 0.6 (1.0-1.7) Test 10/21/21 08:25 Glucose (Fingerstick) 120 mg/dL (70-99) Objective: Assessment: 1. Bacteremia, GPR with filaments, 2 out of 4 bottles present on admission, Strep mitis/oralis Could be contaminant 2. Dyspnea, likely from COVID-19 pneumonia. 3. Chronic obstructive pulmonary disease, chronic respiratory failure, on home O2 at 2 liters unchanged at this time. 4. Leukopenia. 5. Bandemia. 6. Generalized weakness and myalgias. Plan: Plan of Care Continue supportive care Change Zosyn to ceftriaxone Follow-up blood cultures Maintain aspiration precaution D/W OSCAR ALVARADO MD Oct 21, 2021 09:08
[2021-10-21] MEDS: CALCIUM CARB/VIT D3 500/200 TABLET. PO SCH (09:43)
[2021-10-21] MEDS: hydroCHLOROthiazide 12.5 MG CAPSULE PO SCH (09:43)
[2021-10-21] MEDS: CHOLECALCIFEROL (VITAMIN D3) 1,000 UNIT TABLET PO SCH (09:43)
[2021-10-21] MEDS: MAGNESIUM OXIDE 400 MG TABLET PO SCH ×2 (09:44→20:51)
[2021-10-21] MEDS: ALPRAZolam 0.25 MG TABLET PO SCH ×2 (09:45→20:51)
[2021-10-21] MEDS: DULoxetine HCL 30 MG CAPSULE.DR PO SCH (09:45)
[2021-10-21] MEDS: ASPIRIN CHEWABLE 81 MG TABLET. PO SCH (09:45)
[2021-10-21] MEDS: DEXAMETHASONE 4 MG TABLET PO SCH (09:45)
[2021-10-21] MEDS: LOSARTAN POTASSIUM 50 MG TABLET. PO SCH (09:46)
[2021-10-21] MEDS: PANTOPRAZOLE 40 MG TABLET.DR. PO SCH (09:46)
[2021-10-21] MEDS: METOPROLOL SUCC 24HR ER 100 MG TAB.ER.24H. PO SCH (09:47)
[2021-10-21] MEDS: OMEGA-3 FATTY ACIDS/FISH OIL 1,000 MG CAPSULE. PO SCH (09:47)
[2021-10-21] MEDS: LACTOBACILLUS RHAMNOSUS GG 1 CAPSULE. PO SCH ×2 (09:48→20:51)
[2021-10-21] MEDS: HYDROcodone/APAP 7.5/325MG 1 TAB TABLET PO PRN ×2 (09:48→20:51)
[2021-10-21] MEDS: POTASSIUM CHLORIDE 10 MEQ TABLET.ER. PO SCH (09:49)
[2021-10-21] MEDS: CETIRIZINE HCL 10 MG TABLET. PO SCH (09:49)
[2021-10-21] MEDS: ENOXAPARIN 40 MG/0.4 ML SYRINGE. SQ SCH (09:52)
[2021-10-21] MEDS: IPRATROPIUM/ALBUTEROL 20/100mcg/INH INHALER. INH SCH ×4 (09:53→20:00)
[2021-10-21] MEDS: cefTRIAXone IV Push 2 GM VIAL. IVP SCH (10:00)
[2021-10-21 11:00] VITALS: BP 121/57
--- NOTE | 2021-10-21 11:40 | RAD ---
EXAMINATION: XR CHEST 1V CLINICAL HISTORY: Covid TECHNIQUE: XR CHEST 1V COMPARISON: 10/15/2021 FINDINGS/ IMPRESSION: No evidence of significant interval change when accounting for differences in patient positioning and imaging technique. Persistent nonspecific diffuse interstitial prominence, likely chronic. No eviden ce of focal airspace consolidation or pleural effusion. Stable heart size. Electronically signed by: Loi Tolentino DO (10/21/2021 11:38 AM) [id number]
--- NOTE | 2021-10-21 14:25 | NUR ---
Ok per Dr. Corey to place an IV in the left forearm at this time.
[2021-10-21 15:00] VITALS: BP 142/59
[2021-10-21 19:00] VITALS: BP 138/50
[2021-10-21] MEDS: SIMVASTATIN 20 MG TABLET PO SCH (20:51)
[2021-10-21 22:44] VITALS: BP 140/61
[2021-10-22 02:48] VITALS: BP 136/72
[2021-10-22 06:34] LABS: BASO % 0 % (0-3); EOS % 0 % (0-3); HEMATOCRIT 38.4 % (36.0-47.0); HEMOGLOBIN 12.3 g/dL (12.0-15.5); LYMPH # 0.7 x10^3/uL (1.0-4.8); LYMPH % 14 % (24-48); MEAN CORPUSCULAR HEMOGLOBIN 27 pg (25-35); MEAN CORPUSCULAR HGB CONC 32 g/dL (31-37); MEAN CORPUSCULAR VOLUME 86 fL (79-100); MONO # 0.6 x10^3/uL (0.0-1.1); MONO % 12 % (0-9); NEUT # 3.6 x10^3/uL (1.8-7.7); NEUT % 75 % (31-73); PLATELET COUNT 145 x10^3/uL (140-400); RED CELL DISTRIBUTION WIDTH 13.8 % (11.5-14.5); WHITE BLOOD COUNT 4.8 x10^3/uL (4.0-11.0)
[2021-10-22 06:54] LABS: ALBUMIN 2.5 g/dL (3.4-5.0); ALBUMIN/GLOBULIN RATIO 0.6 (1.0-1.7); CALCIUM 9.2 mg/dL (8.5-10.1); POTASSIUM 4.4 mmol/L (3.5-5.1); TOTAL BILIRUBIN 0.3 mg/dL (0.2-1.0); TOTAL PROTEIN 6.4 g/dL (6.4-8.2)
[2021-10-22 07:30] VITALS: BP 146/57
[2021-10-22] MEDS: INSULIN LISPRO 300 UNITS/3 ML VIAL. SQ SCH ×2 (07:30→16:30)
--- NOTE | 2021-10-22 08:04 | PDOC ---
Infectious Disease Note Subjective: Subjective Patient sleepy arousable On 2 L O2 by nasal cannula Cough and shortness of breath are improving though slowly Myalgias are improving Discussed with RN Vital Signs: Vital Signs Vital Signs Date Time Temp Pulse Resp B/P (MAP) Pulse Ox O2 Delivery O2 Flow Rate FiO2 10/22/21 02:48 97.8 74 17 136/72 (93) 98 Nasal Cannula 2.0 97.8 Physical Exam: PHYSICAL EXAM GENERAL: Sleepy but arousable female appears tired HEENT: Normocephalic, atraumatic. Anicteric. NECK: Supple, no JVD, no lymphadenopathy. LUNGS: Decreased breath sounds at the bases. No wheezing. HEART: S1, S2. No murmurs. ABDOMEN: Soft, obese. Bowel sounds present, nontender, nondistended. EXTREMITIES: No edema, no cyanosis. DERMATOLOGIC: Warm, dry, no generalized rash. NEUROLOGIC: Sleepy arousable somewhat confused hard of hearing. PSYCHIATRIC: Appropriate, calm. Medications: Inpatient Meds: Medications reviewed. Labs: Lab Laboratory Tests Test 10/21/21 08:25 10/21/21 12:51 10/21/21 16:39 10/21/21 18:51 Glucose (Fingerstick) 120 mg/dL (70-99) 176 mg/dL (70-99) 150 mg/dL (70-99) 188 mg/dL (70-99) Test 10/22/21 05:05 10/22/21 07:48 White Blood Count 4.8 x10^3/uL (4.0-11.0) Red Blood Count 4.50 x10^6/uL (3.50-5.40) Hemoglobin 12.3 g/dL (12.0-15.5) Hematocrit 38.4 % (36.0-47.0) Mean Corpuscular Volume 86 fL (79-100) Mean Corpuscular Hemoglobin 27 pg (25-35) Mean Corpuscular Hemoglobin Concent 32 g/dL (31-37) Red Cell Distribution Width 13.8 % (11.5-14.5) Platelet Count 145 x10^3/uL (140-400) Neutrophils (%) (Auto) 75 % (31-73) Lymphocytes (%) (Auto) 14 % (24-48) Monocytes (%) (Auto) 12 % (0-9) Eosinophils (%) (Auto) 0 % (0-3) Basophils (%) (Auto) 0 % (0-3) Neutrophils # (Auto) 3.6 x10^3/uL (1.8-7.7) Lymphocytes # (Auto) 0.7 x10^3/uL (1.0-4.8) Monocytes # (Auto) 0.6 x10^3/uL (0.0-1.1) Eosinophils # (Auto) 0.0 x10^3/uL (0.0-0.7) Basophils # (Auto) 0.0 x10^3/uL (0.0-0.2) Sodium Level 139 mmol/L (136-145) Potassium Level 4.4 mmol/L (3.5-5.1) Chloride Level 104 mmol/L (98-107) Carbon Dioxide Level 29 mmol/L (21-32) Anion Gap 6 (6-14) Blood Urea Nitrogen 37 mg/dL (7-20) Creatinine 1.0 mg/dL (0.6-1.0) Estimated GFR (Cockcroft-Gault) 53.0 BUN/Creatinine Ratio 37 (6-20) Glucose Level 118 mg/dL (70-99) Calcium Level 9.2 mg/dL (8.5-10.1) Total Bilirubin 0.3 mg/dL (0.2-1.0) Aspartate Amino Transf (AST/SGOT) 30 U/L (15-37) Alanine Aminotransferase (ALT/SGPT) 27 U/L (14-59) Alkaline Phosphatase 49 U/L (46-116) OD-Fvr-U-Type Natriuretic Peptide 382 pg/mL (0-449) Total Protein 6.4 g/dL (6.4-8.2) Albumin 2.5 g/dL (3.4-5.0) Albumin/Globulin Ratio 0.6 (1.0-1.7) Glucose (Fingerstick) 114 mg/dL (70-99) Objective: Assessment: 1. Bacteremia, GPR with filaments, 2 out of 4 bottles present on admission, Strep mitis/oralis Could be contaminant 2. Dyspnea, likely from COVID-19 pneumonia. 3. Chronic obstructive pulmonary disease, chronic respiratory failure, on home O2 at 2 liters unchanged at this time. 4. Leukopenia. 5. Bandemia. 6. Generalized weakness and myalgias. Plan: Plan of Care Continue supportive care Continue ceftriaxone, will de-escalate soon Follow-up blood cultures Maintain aspiration precaution D/W OSCAR ALVARADO MD Oct 22, 2021 08:04
--- NOTE | 2021-10-22 08:14 | PDOC ---
PULMONARY PROGRESS NOTES DATE: 10/22/21 TIME: 08:14 Subjective Patient currently tired, currently on 2 L of oxygen, not more short of air. Vitals Vital Signs Date Time Temp Pulse Resp B/P (MAP) Pulse Ox O2 Delivery O2 Flow Rate FiO2 10/22/21 02:48 97.8 74 17 136/72 (93) 98 Nasal Cannula 2.0 97.8 ROS: No Nausea, No Chest Pain, No Abdominal Pain, No Increase Cough General: Alert Lungs: Clear Cardiovascular: S1, S2 Abdomen: Soft Neuro Exam: Alert Extremities: No Edema Skin: Warm Labs Laboratory Tests Test 10/20/21 08:42 10/20/21 11:20 10/20/21 16:22 10/20/21 19:30 Glucose (Fingerstick) 85 mg/dL (70-99) 121 mg/dL (70-99) 122 mg/dL (70-99) 124 mg/dL (70-99) Test 10/21/21 05:40 10/21/21 08:25 10/21/21 12:51 10/21/21 16:39 White Blood Count 3.0 x10^3/uL (4.0-11.0) Red Blood Count 4.59 x10^6/uL (3.50-5.40) Hemoglobin 12.4 g/dL (12.0-15.5) Hematocrit 38.8 % (36.0-47.0) Mean Corpuscular Volume 85 fL (79-100) Mean Corpuscular Hemoglobin 27 pg (25-35) Mean Corpuscular Hemoglobin Concent 32 g/dL (31-37) Red Cell Distribution Width 14.3 % (11.5-14.5) Platelet Count 105 x10^3/uL (140-400) Neutrophils (%) (Auto) 72 % (31-73) Lymphocytes (%) (Auto) 17 % (24-48) Monocytes (%) (Auto) 11 % (0-9) Eosinophils (%) (Auto) 0 % (0-3) Basophils (%) (Auto) 0 % (0-3) Neutrophils # (Auto) 2.2 x10^3/uL (1.8-7.7) Lymphocytes # (Auto) 0.5 x10^3/uL (1.0-4.8) Monocytes # (Auto) 0.3 x10^3/uL (0.0-1.1) Eosinophils # (Auto) 0.0 x10^3/uL (0.0-0.7) Basophils # (Auto) 0.0 x10^3/uL (0.0-0.2) Sodium Level 137 mmol/L (136-145) Potassium Level 4.3 mmol/L (3.5-5.1) Chloride Level 102 mmol/L (98-107) Carbon Dioxide Level 26 mmol/L (21-32) Anion Gap 9 (6-14) Blood Urea Nitrogen 38 mg/dL (7-20) Creatinine 1.2 mg/dL (0.6-1.0) Estimated GFR (Cockcroft-Gault) 42.9 BUN/Creatinine Ratio 32 (6-20) Glucose Level 133 mg/dL (70-99) Calcium Level 8.6 mg/dL (8.5-10.1) Total Bilirubin 0.4 mg/dL (0.2-1.0) Aspartate Amino Transf (AST/SGOT) 32 U/L (15-37) Alanine Aminotransferase (ALT/SGPT) 28 U/L (14-59) Alkaline Phosphatase 48 U/L (46-116) Total Protein 6.3 g/dL (6.4-8.2) Albumin 2.4 g/dL (3.4-5.0) Albumin/Globulin Ratio 0.6 (1.0-1.7) Glucose (Fingerstick) 120 mg/dL (70-99) 176 mg/dL (70-99) 150 mg/dL (70-99) Test 10/21/21 18:51 10/22/21 05:05 10/22/21 07:48 Glucose (Fingerstick) 188 mg/dL (70-99) 114 mg/dL (70-99) White Blood Count 4.8 x10^3/uL (4.0-11.0) Red Blood Count 4.50 x10^6/uL (3.50-5.40) Hemoglobin 12.3 g/dL (12.0-15.5) Hematocrit 38.4 % (36.0-47.0) Mean Corpuscular Volume 86 fL (79-100) Mean Corpuscular Hemoglobin 27 pg (25-35) Mean Corpuscular Hemoglobin Concent 32 g/dL (31-37) Red Cell Distribution Width 13.8 % (11.5-14.5) Platelet Count 145 x10^3/uL (140-400) Neutrophils (%) (Auto) 75 % (31-73) Lymphocytes (%) (Auto) 14 % (24-48) Monocytes (%) (Auto) 12 % (0-9) Eosinophils (%) (Auto) 0 % (0-3) Basophils (%) (Auto) 0 % (0-3) Neutrophils # (Auto) 3.6 x10^3/uL (1.8-7.7) Lymphocytes # (Auto) 0.7 x10^3/uL (1.0-4.8) Monocytes # (Auto) 0.6 x10^3/uL (0.0-1.1) Eosinophils # (Auto) 0.0 x10^3/uL (0.0-0.7) Basophils # (Auto) 0.0 x10^3/uL (0.0-0.2) Sodium Level 139 mmol/L (136-145) Potassium Level 4.4 mmol/L (3.5-5.1) Chloride Level 104 mmol/L (98-107) Carbon Dioxide Level 29 mmol/L (21-32) Anion Gap 6 (6-14) Blood Urea Nitrogen 37 mg/dL (7-20) Creatinine 1.0 mg/dL (0.6-1.0) Estimated GFR (Cockcroft-Gault) 53.0 BUN/Creatinine Ratio 37 (6-20) Glucose Level 118 mg/dL (70-99) Calcium Level 9.2 mg/dL (8.5-10.1) Total Bilirubin 0.3 mg/dL (0.2-1.0) Aspartate Amino Transf (AST/SGOT) 30 U/L (15-37) Alanine Aminotransferase (ALT/SGPT) 27 U/L (14-59) Alkaline Phosphatase 49 U/L (46-116) [place]-Inu-N-Type Natriuretic Peptide 382 pg/mL (0-449) Total Protein 6.4 g/dL (6.4-8.2) Albumin 2.5 g/dL (3.4-5.0) Albumin/Globulin Ratio 0.6 (1.0-1.7) Laboratory Tests Test 10/21/21 08:25 10/21/21 12:51 10/21/21 16:39 10/21/21 18:51 Glucose (Fingerstick) 120 mg/dL (70-99) 176 mg/dL (70-99) 150 mg/dL (70-99) 188 mg/dL (70-99) Test 10/22/21 05:05 10/22/21 07:48 White Blood Count 4.8 x10^3/uL (4.0-11.0) Red Blood Count 4.50 x10^6/uL (3.50-5.40) Hemoglobin 12.3 g/dL (12.0-15.5) Hematocrit 38.4 % (36.0-47.0) Mean Corpuscular Volume 86 fL (79-100) Mean Corpuscular Hemoglobin 27 pg (25-35) Mean Corpuscular Hemoglobin Concent 32 g/dL (31-37) Red Cell Distribution Width 13.8 % (11.5-14.5) Platelet Count 145 x10^3/uL (140-400) Neutrophils (%) (Auto) 75 % (31-73) Lymphocytes (%) (Auto) 14 % (24-48) Monocytes (%) (Auto) 12 % (0-9) Eosinophils (%) (Auto) 0 % (0-3) Basophils (%) (Auto) 0 % (0-3) Neutrophils # (Auto) 3.6 x10^3/uL (1.8-7.7) Lymphocytes # (Auto) 0.7 x10^3/uL (1.0-4.8) Monocytes # (Auto) 0.6 x10^3/uL (0.0-1.1) Eosinophils # (Auto) 0.0 x10^3/uL (0.0-0.7) Basophils # (Auto) 0.0 x10^3/uL (0.0-0.2) Sodium Level 139 mmol/L (136-145) Potassium Level 4.4 mmol/L (3.5-5.1) Chloride Level 104 mmol/L (98-107) Carbon Dioxide Level 29 mmol/L (21-32) Anion Gap 6 (6-14) Blood Urea Nitrogen 37 mg/dL (7-20) Creatinine 1.0 mg/dL (0.6-1.0) Estimated GFR (Cockcroft-Gault) 53.0 BUN/Creatinine Ratio 37 (6-20) Glucose Level 118 mg/dL (70-99) Calcium Level 9.2 mg/dL (8.5-10.1) Total Bilirubin 0.3 mg/dL (0.2-1.0) Aspartate Amino Transf (AST/SGOT) 30 U/L (15-37) Alanine Aminotransferase (ALT/SGPT) 27 U/L (14-59) Alkaline Phosphatase 49 U/L (46-116) JO-Bgr-A-Type Natriuretic Peptide 382 pg/mL (0-449) Total Protein 6.4 g/dL (6.4-8.2) Albumin 2.5 g/dL (3.4-5.0) Albumin/Globulin Ratio 0.6 (1.0-1.7) Glucose (Fingerstick) 114 mg/dL (70-99) Medications Active Scripts Medications Dose Route/Sig Max Daily Dose Days Date Category Vitamin D (Cholecalciferol (Vitamin D3)) 2,000 Unit Capsule 1 Cap PO DAILY 12/24/14 Reported Calcium 500 + Vit D 400 Tablet (Calcium Carbonate/Vitamin D3) 1 Each Tablet 1 Each PO DAILY 12/24/14 Reported Magnesium (Magnesium Oxide) 250 Mg Tablet 250 Mg PO BID 12/24/14 Reported Fish Oil 1,000 Mg Capsule ([place]-3 Fatty Acids/Fish Oil) 1 Each Capsule 2 Each PO DAILY 12/24/14 Reported Xanax (Alprazolam) 0.25 Mg Tablet 1 Tab PO BID 12/24/14 Reported Potassium Chloride 10 Meq Capsule.er 10 Meq PO DAILY 05/16/14 Reported Cymbalta (Duloxetine Hcl) 60 Mg Capsule.dr 60 Mg PO DAILY 05/16/14 Reported Metoprolol Succinate ( Xl ) (Metoprolol Succinate) 100 Mg Tab.er.24h 100 Mg PO DAILY 05/16/14 Reported Cetirizine Hcl 10 Mg Tab.chew 10 Mg PO DAILY 05/16/14 Reported Hydrocodone-Apap 7.5-325 (Hydrocodone Bit/Acetaminophen) 1 Each Tablet 1 Tab PO PRN Q6HRS PRN 05/16/14 Reported Simvastatin 20 Mg Tablet 20 Mg PO DAILY 05/16/14 Reported Flonase (Fluticasone Propionate) 16 Gm [place].susp 1 [place] NS DAILY PRN 05/16/14 Reported Losartan-Hctz 100-12.5 Mg Tab (Losartan/Hydrochlorothiazide) 1 Each Tablet 1 Each PO DAILY 05/16/14 Reported Protonix (Pantoprazole Sodium) 40 Mg Granpkt.dr 40 Mg PO DAILY 05/16/14 Reported Ventolin Hfa Inhaler (Albuterol Sulfate) 18 Gm Hfa.aer.ad 2 Puff INH QID PRN 05/16/14 Reported Aspirin 81 Mg Tab.chew 81 Mg PO DAILY 05/16/14 Reported Spiriva (Tiotropium [place]) 18 Mcg Cap.w.dev 2 Inh IH DAILY 05/16/14 Reported Impression . 1. Progressive dyspnea secondary to COVID-19 viral pneumonia possible bacterial pneumonia 2. The patient with chronic obstructive pulmonary disease, on home oxygen at 2 liters. 3. Bacteremia. FINAL ID= [STREPTOCOCCUS MITIS/ORALIS GRP], likely contaminant, per ID 4. History of chronic obstructive pulmonary disease. 5. Abnormal chest x-ray with faint interstitial infiltrates suggestive of COVID-19 viral pneumonia. 6. Possible bacterial pneumonia 7. Toxic encephalopathy secondary to fever and COVID-19 viral pneumonia Plan . Updated 10/22 Antibiotics per ID Okay to discharge from pulmonary standpoint of view oxygen supplementation Nebulized treatments updated 10/21 Continue current support Dexamethasone Nebulized treatments Defer antibiotics per ID. RECOMMENDATIONS: 1. Discussed with Dr. Henley. Oxygen requirement increased to 3 L last night. 2. We will initiate dexamethasone. 3. Continue DuoNebs. 5. Follow Infectious Disease recommendations regarding bacteremia. Likely contaminant. 6. Continue home medications. 7. DVT prophylaxis. 8. Discussed with TUNG FRAUSTO MD Oct 22, 2021 08:14
[2021-10-22] MEDS: OMEGA-3 FATTY ACIDS/FISH OIL 1,000 MG CAPSULE. PO SCH (08:59)
[2021-10-22] MEDS: LACTOBACILLUS RHAMNOSUS GG 1 CAPSULE. PO SCH ×2 (08:59→21:02)
[2021-10-22] MEDS: CALCIUM CARB/VIT D3 500/200 TABLET. PO SCH (08:59)
[2021-10-22] MEDS: hydroCHLOROthiazide 12.5 MG CAPSULE PO SCH (08:59)
[2021-10-22] MEDS: DULoxetine HCL 30 MG CAPSULE.DR PO SCH (08:59)
[2021-10-22] MEDS: MAGNESIUM OXIDE 400 MG TABLET PO SCH ×2 (09:00→21:03)
[2021-10-22] MEDS: LOSARTAN POTASSIUM 50 MG TABLET. PO SCH (09:00)
[2021-10-22] MEDS: CETIRIZINE HCL 10 MG TABLET. PO SCH (09:00)
[2021-10-22] MEDS: ALPRAZolam 0.25 MG TABLET PO SCH ×2 (09:00→21:03)
[2021-10-22] MEDS: POTASSIUM CHLORIDE 10 MEQ TABLET.ER. PO SCH (09:00)
[2021-10-22] MEDS: CHOLECALCIFEROL (VITAMIN D3) 1,000 UNIT TABLET PO SCH (09:02)
[2021-10-22] MEDS: PANTOPRAZOLE 40 MG TABLET.DR. PO SCH (09:02)
[2021-10-22] MEDS: METOPROLOL SUCC 24HR ER 100 MG TAB.ER.24H. PO SCH (09:02)
[2021-10-22] MEDS: ASPIRIN CHEWABLE 81 MG TABLET. PO SCH (09:02)
[2021-10-22] MEDS: DEXAMETHASONE 4 MG TABLET PO SCH (09:03)
[2021-10-22] MEDS: ENOXAPARIN 40 MG/0.4 ML SYRINGE. SQ SCH (09:04)
[2021-10-22] MEDS: IPRATROPIUM/ALBUTEROL 20/100mcg/INH INHALER. INH SCH ×4 (09:05→21:02)
[2021-10-22] MEDS: cefTRIAXone IV Push 2 GM VIAL. IVP SCH (09:06)
--- NOTE | 2021-10-22 09:18 | PDOC ---
IM PROGRESS NOTES- Subjective Subjective Has some cough and congestion. Denies dyspnea. Objective Vitals/I&O Vital Signs Date Time Temp Pulse Resp B/P (MAP) Pulse Ox O2 Delivery O2 Flow Rate FiO2 10/22/21 09:02 71 146/57 10/22/21 07:30 97.3 20 94 Nasal Cannula 2.0 97.3 Physical Exam Physical Exam General Appearance - alert and in no distress Chest - decreased breath sounds at bases Heart - S1 and S2 normal Abdomen - soft, non tender Neurological - alert and oriented Musculoskeletal - generalized weakness Extremities - no edema Labs Laboratory Tests Test 10/21/21 12:51 10/21/21 16:39 10/21/21 18:51 10/22/21 05:05 Glucose (Fingerstick) 176 mg/dL (70-99) H 150 mg/dL (70-99) H 188 mg/dL (70-99) H White Blood Count 4.8 x10^3/uL (4.0-11.0) Red Blood Count 4.50 x10^6/uL (3.50-5.40) Hemoglobin 12.3 g/dL (12.0-15.5) Hematocrit 38.4 % (36.0-47.0) Mean Corpuscular Volume 86 fL (79-100) Mean Corpuscular Hemoglobin 27 pg (25-35) Mean Corpuscular Hemoglobin Concent 32 g/dL (31-37) Red Cell Distribution Width 13.8 % (11.5-14.5) Platelet Count 145 x10^3/uL (140-400) Neutrophils (%) (Auto) 75 % (31-73) H Lymphocytes (%) (Auto) 14 % (24-48) L Monocytes (%) (Auto) 12 % (0-9) H Eosinophils (%) (Auto) 0 % (0-3) Basophils (%) (Auto) 0 % (0-3) Neutrophils # (Auto) 3.6 x10^3/uL (1.8-7.7) Lymphocytes # (Auto) 0.7 x10^3/uL (1.0-4.8) L Monocytes # (Auto) 0.6 x10^3/uL (0.0-1.1) Eosinophils # (Auto) 0.0 x10^3/uL (0.0-0.7) Basophils # (Auto) 0.0 x10^3/uL (0.0-0.2) Sodium Level 139 mmol/L (136-145) Potassium Level 4.4 mmol/L (3.5-5.1) Chloride Level 104 mmol/L (98-107) Carbon Dioxide Level 29 mmol/L (21-32) Anion Gap 6 (6-14) Blood Urea Nitrogen 37 mg/dL (7-20) H Creatinine 1.0 mg/dL (0.6-1.0) Estimated GFR (Cockcroft-Gault) 53.0 BUN/Creatinine Ratio 37 (6-20) H Glucose Level 118 mg/dL (70-99) H Calcium Level 9.2 mg/dL (8.5-10.1) Total Bilirubin 0.3 mg/dL (0.2-1.0) Aspartate Amino Transferase (AST) 30 U/L (15-37) Alanine Aminotransferase (ALT) 27 U/L (14-59) Alkaline Phosphatase 49 U/L (46-116) IH-Bez-Q-Type Natriuretic Peptide 382 pg/mL (0-449) Total Protein 6.4 g/dL (6.4-8.2) Albumin 2.5 g/dL (3.4-5.0) L Albumin/Globulin Ratio 0.6 (1.0-1.7) L Test 10/22/21 07:48 Glucose (Fingerstick) 114 mg/dL (70-99) H Laboratory Tests 10/22/21 05:05 Laboratory Tests 10/22/21 05:05 Meds Current Medications Medications (Trade) Dose Ordered Sig/Mian Route PRN Reason Start Time Stop Time Status Last Admin Dose Admin Ceftriaxone Sodium (Rocephin) 2 gm Q24H IVP 10/21/21 10:00 10/22/21 09:06 Assessment Assessment 1. COVID-19 pneumonia. 2. Sepsis with abnormal blood culture. 3. Acute on chronic respiratory failure. 4. Chronic obstructive pulmonary disease exacerbation. 5. Hypertension. 6. Diabetes mellitus type 2. 7. Peripheral artery disease. 8. Gastroesophageal reflux disease. 9. Hypothyroidism and high thyroid goiter. 10. History of hiatal hernia. 11. History of gastritis. 12. History of colon cancer and breast cancer. 13. Dementia. 14. Tremors. 15. Anxiety. 16. Depression. 17. Osteoarthritis and chronic pain. PLAN: FINAL ID= [STREPTOCOCCUS MITIS/ORALIS GRP]contamination PLAN: 1. COVID-[address] Dorsey. Oxygen requirements are going up to 4 L/min. On IV Decadron. 2. Possible sepsis with gram-positive rods with branching filaments. Consulted Dr. Meagan Sanz for Infectious Disease evaluation and management. The patient has been started on IV Zosyn and Bactrim DS. Blood culture from 10/15, 1 culture showed Staphylococcus mitis/paralysis. Likely contamination. Second blood culture from October 15 has been reported positive . ID pending. Blood cultures from October 17 are negative so far. Zosyn changed to Rocephin. 3. Diabetes mellitus type 2. Continue to monitor. 4. Hypertension, not controlled. We will order IV p.r.n. hydralazine. Blood pressure control is improving. Creatinine is 1.2 however BUN has increased to 38. Recheck labs in a.m. 5. Osteoarthritis. Continue pain medications. 6. Dementia with acute metabolic encephalopathy. Multifactorial. Discussed with staff. Hold Xanax this morning. For details, please refer to the orders. Long-term as well as short-term prognosis of this patient is very poor due to her multiple medical problems. Patient's son is trying to get her out of the hospital and take her home per patient's DPOA Sahara Boone. Patient's son is not the DPOA. Condition treatment options discussed with patient's DPOA Sahara on 10-20-2021 at [phone] she wants the patient to stay in the hospital. Clinically improving slowly. Plan Plan For more details regarding further plans, please refer to the orders. Justifications for Admission Other Justification MERON RIOS MD Oct 22, 2021 09:18
[2021-10-22 11:00] VITALS: BP 145/61
--- NOTE | 2021-10-22 14:18 | NUR ---
SW following. Discussed with RN, pt from home with son, COVID-19 positive. PT/OT ordered. SW will continue to follow.
[2021-10-22 15:00] VITALS: BP 135/51
[2021-10-22 19:45] VITALS: BP 170/77
[2021-10-22] MEDS: HYDROcodone/APAP 7.5/325MG 1 TAB TABLET PO PRN (21:02)
[2021-10-22] MEDS: SIMVASTATIN 20 MG TABLET PO SCH (21:02)
[2021-10-22 23:00] VITALS: BP 142/83
[2021-10-23 03:00] VITALS: BP 148/58
[2021-10-23 07:00] VITALS: BP 144/73
[2021-10-23] MEDS: INSULIN LISPRO 300 UNITS/3 ML VIAL. SQ SCH ×2 (07:30→16:30)
--- NOTE | 2021-10-23 08:18 | PDOC ---
PULMONARY PROGRESS NOTES DATE: 10/23/21 TIME: 08:18 Subjective Patient weak, sometimes fatigue. Currently on 2 L of oxygen supplementation. Vitals Vital Signs Date Time Temp Pulse Resp B/P (MAP) Pulse Ox O2 Delivery O2 Flow Rate FiO2 10/23/21 03:00 97.8 66 18 148/58 (88) 94 97.8 10/22/21 23:00 Nasal Cannula 2.0 ROS: No Nausea, No Chest Pain, No Abdominal Pain, No Increase Cough General: Alert Lungs: Clear Cardiovascular: S1, S2 Abdomen: Soft Neuro Exam: Alert Extremities: No Edema Skin: Warm Labs Laboratory Tests Test 10/21/21 08:25 10/21/21 12:51 10/21/21 16:39 10/21/21 18:51 Glucose (Fingerstick) 120 mg/dL (70-99) 176 mg/dL (70-99) 150 mg/dL (70-99) 188 mg/dL (70-99) Test 10/22/21 05:05 10/22/21 07:48 10/22/21 11:19 10/22/21 17:19 White Blood Count 4.8 x10^3/uL (4.0-11.0) Red Blood Count 4.50 x10^6/uL (3.50-5.40) Hemoglobin 12.3 g/dL (12.0-15.5) Hematocrit 38.4 % (36.0-47.0) Mean Corpuscular Volume 86 fL (79-100) Mean Corpuscular Hemoglobin 27 pg (25-35) Mean Corpuscular Hemoglobin Concent 32 g/dL (31-37) Red Cell Distribution Width 13.8 % (11.5-14.5) Platelet Count 145 x10^3/uL (140-400) Neutrophils (%) (Auto) 75 % (31-73) Lymphocytes (%) (Auto) 14 % (24-48) Monocytes (%) (Auto) 12 % (0-9) Eosinophils (%) (Auto) 0 % (0-3) Basophils (%) (Auto) 0 % (0-3) Neutrophils # (Auto) 3.6 x10^3/uL (1.8-7.7) Lymphocytes # (Auto) 0.7 x10^3/uL (1.0-4.8) Monocytes # (Auto) 0.6 x10^3/uL (0.0-1.1) Eosinophils # (Auto) 0.0 x10^3/uL (0.0-0.7) Basophils # (Auto) 0.0 x10^3/uL (0.0-0.2) Sodium Level 139 mmol/L (136-145) Potassium Level 4.4 mmol/L (3.5-5.1) Chloride Level 104 mmol/L (98-107) Carbon Dioxide Level 29 mmol/L (21-32) Anion Gap 6 (6-14) Blood Urea Nitrogen 37 mg/dL (7-20) Creatinine 1.0 mg/dL (0.6-1.0) Estimated GFR (Cockcroft-Gault) 53.0 BUN/Creatinine Ratio 37 (6-20) Glucose Level 118 mg/dL (70-99) Calcium Level 9.2 mg/dL (8.5-10.1) Total Bilirubin 0.3 mg/dL (0.2-1.0) Aspartate Amino Transf (AST/SGOT) 30 U/L (15-37) Alanine Aminotransferase (ALT/SGPT) 27 U/L (14-59) Alkaline Phosphatase 49 U/L (46-116) SE-Mfp-C-Type Natriuretic Peptide 382 pg/mL (0-449) Total Protein 6.4 g/dL (6.4-8.2) Albumin 2.5 g/dL (3.4-5.0) Albumin/Globulin Ratio 0.6 (1.0-1.7) Glucose (Fingerstick) 114 mg/dL (70-99) 127 mg/dL (70-99) 140 mg/dL (70-99) Test 10/22/21 21:15 Glucose (Fingerstick) 145 mg/dL (70-99) Laboratory Tests Test 10/22/21 11:19 10/22/21 17:19 10/22/21 21:15 Glucose (Fingerstick) 127 mg/dL (70-99) 140 mg/dL (70-99) 145 mg/dL (70-99) Medications Active Scripts Medications Dose Route/Sig Max Daily Dose Days Date Category Vitamin D (Cholecalciferol (Vitamin D3)) 2,000 Unit Capsule 1 Cap PO DAILY 12/24/14 Reported Calcium 500 + Vit D 400 Tablet (Calcium Carbonate/Vitamin D3) 1 Each Tablet 1 Each PO DAILY 12/24/14 Reported Magnesium (Magnesium Oxide) 250 Mg Tablet 250 Mg PO BID 12/24/14 Reported Fish Oil 1,000 Mg Capsule ([place]-3 Fatty Acids/Fish Oil) 1 Each Capsule 2 Each PO DAILY 12/24/14 Reported Xanax (Alprazolam) 0.25 Mg Tablet 1 Tab PO BID 12/24/14 Reported Potassium Chloride 10 Meq Capsule.er 10 Meq PO DAILY 05/16/14 Reported Cymbalta (Duloxetine Hcl) 60 Mg Capsule.dr 60 Mg PO DAILY 05/16/14 Reported Metoprolol Succinate ( Xl ) (Metoprolol Succinate) 100 Mg Tab.er.24h 100 Mg PO DAILY 05/16/14 Reported Cetirizine Hcl 10 Mg Tab.chew 10 Mg PO DAILY 05/16/14 Reported Hydrocodone-Apap 7.5-325 (Hydrocodone Bit/Acetaminophen) 1 Each Tablet 1 Tab PO PRN Q6HRS PRN 05/16/14 Reported Simvastatin 20 Mg Tablet 20 Mg PO DAILY 05/16/14 Reported Flonase (Fluticasone Propionate) 16 Gm [place].susp 1 [place] NS DAILY PRN 05/16/14 Reported Losartan-Hctz 100-12.5 Mg Tab (Losartan/Hydrochlorothiazide) 1 Each Tablet 1 Each PO DAILY 05/16/14 Reported Protonix (Pantoprazole Sodium) 40 Mg Granpkt.dr 40 Mg PO DAILY 05/16/14 Reported Ventolin Hfa Inhaler (Albuterol Sulfate) 18 Gm Hfa.aer.ad 2 Puff INH QID PRN 05/16/14 Reported Aspirin 81 Mg Tab.chew 81 Mg PO DAILY 05/16/14 Reported Spiriva (Tiotropium [place]) 18 Mcg Cap.w.dev 2 Inh IH DAILY 05/16/14 Reported Impression . 1. Progressive dyspnea secondary to COVID-19 viral pneumonia possible bacterial pneumonia 2. The patient with chronic obstructive pulmonary disease, on home oxygen at 2 liters. 3. Bacteremia. FINAL ID= [STREPTOCOCCUS MITIS/ORALIS GRP], likely contaminant, per ID 4. History of chronic obstructive pulmonary disease. 5. Abnormal chest x-ray with faint interstitial infiltrates suggestive of COVID-19 viral pneumonia. 6. Possible bacterial pneumonia 7. Toxic encephalopathy secondary to fever and COVID-19 viral pneumonia Plan . Updated 10/23 Continue current support Oxygen supplementation Antibiotics per ID Discharge planning in place updated 10/22 Antibiotics per ID Okay to discharge from pulmonary standpoint of view oxygen supplementation Nebulized treatments updated 10/21 Continue current support Dexamethasone Nebulized treatments Defer antibiotics per ID. TUNG STAFFORD MD Oct 23, 2021 08:18
[2021-10-23] MEDS: ALPRAZolam 0.25 MG TABLET PO SCH ×2 (09:42→21:26)
[2021-10-23] MEDS: LOSARTAN POTASSIUM 50 MG TABLET. PO SCH (09:42)
[2021-10-23] MEDS: hydroCHLOROthiazide 12.5 MG CAPSULE PO SCH (09:42)
[2021-10-23] MEDS: LACTOBACILLUS RHAMNOSUS GG 1 CAPSULE. PO SCH ×2 (09:43→21:27)
[2021-10-23] MEDS: MAGNESIUM OXIDE 400 MG TABLET PO SCH ×2 (09:43→21:27)
[2021-10-23] MEDS: DEXAMETHASONE 4 MG TABLET PO SCH (09:43)
[2021-10-23] MEDS: METOPROLOL SUCC 24HR ER 100 MG TAB.ER.24H. PO SCH (09:43)
[2021-10-23] MEDS: POTASSIUM CHLORIDE 10 MEQ TABLET.ER. PO SCH (09:43)
[2021-10-23] MEDS: CETIRIZINE HCL 10 MG TABLET. PO SCH (09:43)
[2021-10-23] MEDS: OMEGA-3 FATTY ACIDS/FISH OIL 1,000 MG CAPSULE. PO SCH (09:44)
[2021-10-23] MEDS: PANTOPRAZOLE 40 MG TABLET.DR. PO SCH (09:44)
[2021-10-23] MEDS: ENOXAPARIN 40 MG/0.4 ML SYRINGE. SQ SCH (09:44)
[2021-10-23] MEDS: ASPIRIN CHEWABLE 81 MG TABLET. PO SCH (09:44)
[2021-10-23] MEDS: DULoxetine HCL 30 MG CAPSULE.DR PO SCH (09:44)
[2021-10-23] MEDS: CALCIUM CARB/VIT D3 500/200 TABLET. PO SCH (09:44)
[2021-10-23] MEDS: CHOLECALCIFEROL (VITAMIN D3) 1,000 UNIT TABLET PO SCH (09:44)
[2021-10-23] MEDS: IPRATROPIUM/ALBUTEROL 20/100mcg/INH INHALER. INH SCH ×4 (09:45→21:27)
--- NOTE | 2021-10-23 09:49 | PDOC ---
Infectious Disease Note Subjective: Subjective Patient sleepy arousable Continues to remain confused Discussed with RN Vital Signs: Vital Signs Vital Signs Date Time Temp Pulse Resp B/P (MAP) Pulse Ox O2 Delivery O2 Flow Rate FiO2 10/23/21 07:00 97.5 71 22 144/73 (96) 96 Nasal Cannula 2.0 97.5 Physical Exam: PHYSICAL EXAM GENERAL: Sleepy but arousable female appears tired HEENT: Normocephalic, atraumatic. Anicteric. NECK: Supple, no JVD, no lymphadenopathy. LUNGS: Decreased breath sounds at the bases. No wheezing. HEART: S1, S2. No murmurs. ABDOMEN: Soft, obese. Bowel sounds present, nontender, nondistended. EXTREMITIES: No edema, no cyanosis. DERMATOLOGIC: Warm, dry, no generalized rash. NEUROLOGIC: Sleepy arousable somewhat confused hard of hearing. PSYCHIATRIC: Appropriate, calm. Medications: Inpatient Meds: Medications reviewed. Labs: Lab Laboratory Tests Test 10/22/21 11:19 10/22/21 17:19 10/22/21 21:15 10/23/21 09:06 Glucose (Fingerstick) 127 mg/dL (70-99) 140 mg/dL (70-99) 145 mg/dL (70-99) 85 mg/dL (70-99) Objective: Assessment: 1. Bacteremia, GPR with filaments, 2 out of 4 bottles present on admission, Strep mitis/oralis Could be contaminant 2. Dyspnea, likely from COVID-19 pneumonia. 3. Chronic obstructive pulmonary disease, chronic respiratory failure, on home O2 at 2 liters unchanged at this time. 4. Leukopenia. 5. Bandemia. 6. Generalized weakness and myalgias. Plan: Plan of Care Continue supportive care DC ceftriaxone Follow-up blood cultures negative so far Maintain aspiration precaution D/W OSCAR ALVARADO MD Oct 23, 2021 09:49
[2021-10-23 11:00] VITALS: BP 147/50
--- NOTE | 2021-10-23 11:04 | PDOC ---
IM PROGRESS NOTES- Subjective Subjective Patient complains of weakness and dry mouth. She is forgetful and not a good historian. Objective Vitals/I&O Vital Signs Date Time Temp Pulse Resp B/P (MAP) Pulse Ox O2 Delivery O2 Flow Rate FiO2 10/23/21 09:43 71 144/73 10/23/21 07:00 97.5 22 96 Nasal Cannula 2.0 97.5 I & O 10/22/21 10/22/21 10/23/21 15:00 23:00 07:00 Intake Total 170 ml 480 ml 240 ml Balance 170 ml 480 ml 240 ml Physical Exam Physical Exam General Appearance - alert and in mild distress. On oxygen by nasal cannula Chest - decreased breath sounds at bases Heart - S1 and S2 normal Abdomen - soft, non tender Neurological - alert and forgetful Musculoskeletal - generalized weakness Extremities - no edema Labs Laboratory Tests Test 10/22/21 11:19 10/22/21 17:19 10/22/21 21:15 10/23/21 09:06 Glucose (Fingerstick) 127 mg/dL (70-99) H 140 mg/dL (70-99) H 145 mg/dL (70-99) H 85 mg/dL (70-99) Assessment Assessment 1. COVID-19 pneumonia. 2. Sepsis with abnormal blood culture. 3. Acute on chronic respiratory failure. 4. Chronic obstructive pulmonary disease exacerbation. 5. Hypertension. 6. Diabetes mellitus type 2. 7. Peripheral artery disease. 8. Gastroesophageal reflux disease. 9. Hypothyroidism and high thyroid goiter. 10. History of hiatal hernia. 11. History of gastritis. 12. History of colon cancer and breast cancer. 13. Dementia. 14. Tremors. 15. Anxiety. 16. Depression. 17. Osteoarthritis and chronic pain. PLAN: FINAL ID= [STREPTOCOCCUS MITIS/ORALIS GRP]contamination PLAN: 1. COVID-[address] Dorsey. Oxygen requirements are going up to 4 L/min. On IV Decadron. 2. Possible sepsis with gram-positive rods with branching filaments. Consulted Dr. Meagan Sanz for Infectious Disease evaluation and management. The patient has been started on IV Zosyn and Bactrim DS. Blood culture from 10/15, 1 culture showed Staphylococcus mitis/paralysis. Likely contamination. Second blood culture from October 15 has been reported positive . ID pending. Blood cultures from October 17 are negative so far. Zosyn changed to Rocephin. 3. Diabetes mellitus type 2. Continue to monitor. 4. Hypertension, not controlled. We will order IV p.r.n. hydralazine. Blood pressure control is improving. Creatinine is 1.2 however BUN has increased to 38. Recheck labs in a.m. 5. Osteoarthritis. Continue pain medications. 6. Dementia with acute metabolic encephalopathy. Multifactorial. Discussed with staff. Hold Xanax this morning. For details, please refer to the orders. Long-term as well as short-term prognosis of this patient is very poor due to her multiple medical problems. Clinically improving slowly. IV antibiotics have been discontinued. Discussed with protective services social worker. Consult senior living unit for further management. Transfer to senior living unit when accepted. Plan Plan For more details regarding further plans, please refer to the orders. Justifications for Admission Other Justification MERON RIOS MD Oct 23, 2021 11:04
--- NOTE | 2021-10-23 12:52 | NUR ---
SW following. Discussed with RN, therapy recommending SNF. Per RN, pt not oriented enough to discuss SNF placement. LOUANN spoke with pt's son, Robert. [place] agreeable to SNF, understands [facility] is the only facility taking COVID-19 positive patients. LOUANN faxed referral to [facility], left voicemail for Paulette in admissions. LOUANN will continue to follow. Addendum: 10/23/21 at 1611 by DEVON LEW Pt accepted at [facility] pending insurance auth. LOUANN will continue to follow.
[2021-10-23 15:00] VITALS: BP 127/56
[2021-10-23] MEDS: HYDROcodone/APAP 7.5/325MG 1 TAB TABLET PO PRN ×2 (17:17→21:27)
[2021-10-23 18:55] VITALS: BP 152/66
[2021-10-23] MEDS: SIMVASTATIN 20 MG TABLET PO SCH (21:28)
[2021-10-23 22:41] VITALS: BP 174/78
[2021-10-24 02:39] VITALS: BP 182/61
[2021-10-24 03:05] VITALS: BP 164/64
[2021-10-24 07:00] VITALS: BP 155/68
[2021-10-24] MEDS: INSULIN LISPRO 300 UNITS/3 ML VIAL. SQ SCH (07:30)
--- NOTE | 2021-10-24 08:26 | PDOC ---
Infectious Disease Note Subjective: Subjective Patient more alert this morning On O2 by nasal cannula Discussed with RN Vital Signs: Vital Signs Vital Signs Date Time Temp Pulse Resp B/P (MAP) Pulse Ox O2 Delivery O2 Flow Rate FiO2 10/24/21 03:05 65 164/64 (97) 10/24/21 02:39 98.1 18 96 Nasal Cannula 2.0 98.1 Physical Exam: PHYSICAL EXAM GENERAL: Alert awake hard of hearing female appears comfortable on nasal O2 HEENT: Normocephalic, atraumatic. Anicteric. NECK: Supple, no JVD, no lymphadenopathy. LUNGS: Decreased breath sounds at the bases. No wheezing. HEART: S1, S2. No murmurs. ABDOMEN: Soft, obese. Bowel sounds present, nontender, nondistended. EXTREMITIES: No edema, no cyanosis. DERMATOLOGIC: Warm, dry, no generalized rash. Perianal irritation NEUROLOGIC: Sleepy arousable somewhat confused hard of hearing. PSYCHIATRIC: Appropriate, calm. Medications: Inpatient Meds: Medications reviewed. Labs: Lab Laboratory Tests Test 10/23/21 09:06 10/23/21 11:51 10/23/21 16:31 10/23/21 20:12 Glucose (Fingerstick) 85 mg/dL (70-99) 101 mg/dL (70-99) 164 mg/dL (70-99) 210 mg/dL (70-99) Test 10/24/21 08:05 Glucose (Fingerstick) 68 mg/dL (70-99) Objective: Assessment: 1. Bacteremia, GPR with filaments, 2 out of 4 bottles present on admission, Strep mitis/oralis Could be contaminant 2. Dyspnea, likely from COVID-19 pneumonia. 3. Chronic obstructive pulmonary disease, chronic respiratory failure, on home O2 at 2 liters unchanged at this time. 4. Leukopenia. 5. Bandemia. 6. Generalized weakness and myalgias. Plan: Plan of Care Continue supportive care Dose micafungin Start nystatin local cream Follow-up blood cultures negative so far Maintain aspiration precaution D/W OSCAR ALVARADO MD Oct 24, 2021 08:26
--- NOTE | 2021-10-24 08:51 | PDOC ---
PULMONARY PROGRESS NOTES DATE: 10/24/21 TIME: 08:51 Subjective Patient weak, sometimes fatigue. Currently on 2 L of oxygen supplementation. Vitals Vital Signs Date Time Temp Pulse Resp B/P (MAP) Pulse Ox O2 Delivery O2 Flow Rate FiO2 10/24/21 03:05 65 164/64 (97) 10/24/21 02:39 98.1 18 96 Nasal Cannula 2.0 98.1 ROS: No Nausea, No Chest Pain, No Abdominal Pain, No Increase Cough General: Alert Lungs: Clear Cardiovascular: S1, S2 Abdomen: Soft Neuro Exam: Alert Extremities: No Edema Skin: Warm Labs Laboratory Tests Test 10/22/21 11:19 10/22/21 17:19 10/22/21 21:15 10/23/21 09:06 Glucose (Fingerstick) 127 mg/dL (70-99) 140 mg/dL (70-99) 145 mg/dL (70-99) 85 mg/dL (70-99) Test 10/23/21 11:51 10/23/21 16:31 10/23/21 20:12 10/24/21 08:05 Glucose (Fingerstick) 101 mg/dL (70-99) 164 mg/dL (70-99) 210 mg/dL (70-99) 68 mg/dL (70-99) Laboratory Tests Test 10/23/21 09:06 10/23/21 11:51 10/23/21 16:31 10/23/21 20:12 Glucose (Fingerstick) 85 mg/dL (70-99) 101 mg/dL (70-99) 164 mg/dL (70-99) 210 mg/dL (70-99) Test 10/24/21 08:05 Glucose (Fingerstick) 68 mg/dL (70-99) Medications Active Scripts Medications Dose Route/Sig Max Daily Dose Days Date Category Vitamin D (Cholecalciferol (Vitamin D3)) 2,000 Unit Capsule 1 Cap PO DAILY 12/24/14 Reported Calcium 500 + Vit D 400 Tablet (Calcium Carbonate/Vitamin D3) 1 Each Tablet 1 Each PO DAILY 12/24/14 Reported Magnesium (Magnesium Oxide) 250 Mg Tablet 250 Mg PO BID 12/24/14 Reported Fish Oil 1,000 Mg Capsule ([place]-3 Fatty Acids/Fish Oil) 1 Each Capsule 2 Each PO DAILY 12/24/14 Reported Xanax (Alprazolam) 0.25 Mg Tablet 1 Tab PO BID 12/24/14 Reported Potassium Chloride 10 Meq Capsule.er 10 Meq PO DAILY 05/16/14 Reported Cymbalta (Duloxetine Hcl) 60 Mg Capsule.dr 60 Mg PO DAILY 05/16/14 Reported Metoprolol Succinate ( Xl ) (Metoprolol Succinate) 100 Mg Tab.er.24h 100 Mg PO DAILY 05/16/14 Reported Cetirizine Hcl 10 Mg Tab.chew 10 Mg PO DAILY 05/16/14 Reported Hydrocodone-Apap 7.5-325 (Hydrocodone Bit/Acetaminophen) 1 Each Tablet 1 Tab PO PRN Q6HRS PRN 05/16/14 Reported Simvastatin 20 Mg Tablet 20 Mg PO DAILY 05/16/14 Reported Flonase (Fluticasone Propionate) 16 Gm [place].susp 1 [place] NS DAILY PRN 05/16/14 Reported Losartan-Hctz 100-12.5 Mg Tab (Losartan/Hydrochlorothiazide) 1 Each Tablet 1 Each PO DAILY 05/16/14 Reported Protonix (Pantoprazole Sodium) 40 Mg Granpkt.dr 40 Mg PO DAILY 05/16/14 Reported Ventolin Hfa Inhaler (Albuterol Sulfate) 18 Gm Hfa.aer.ad 2 Puff INH QID PRN 05/16/14 Reported Aspirin 81 Mg Tab.chew 81 Mg PO DAILY 05/16/14 Reported Spiriva (Tiotropium [place]) 18 Mcg Cap.w.dev 2 Inh IH DAILY 05/16/14 Reported Impression . 1. Progressive dyspnea secondary to COVID-19 viral pneumonia possible bacterial pneumonia 2. The patient with chronic obstructive pulmonary disease, on home oxygen at 2 liters. 3. Bacteremia. FINAL ID= [STREPTOCOCCUS MITIS/ORALIS GRP], likely contaminant, per ID 4. History of chronic obstructive pulmonary disease. 5. Abnormal chest x-ray with faint interstitial infiltrates suggestive of COVID-19 viral pneumonia. 6. Possible bacterial pneumonia 7. Toxic encephalopathy secondary to fever and COVID-19 viral pneumonia Plan . Updated 10/24 Okay to transfer Discussed with RN updated 10/23 Continue current support Oxygen supplementation Antibiotics per ID Discharge planning in place TUNG STAFFORD MD Oct 24, 2021 08:51
[2021-10-24] MEDS: ALPRAZolam 0.25 MG TABLET PO SCH (09:00)
[2021-10-24] MEDS: CHOLECALCIFEROL (VITAMIN D3) 1,000 UNIT TABLET PO SCH (09:00)
[2021-10-24] MEDS: MAGNESIUM OXIDE 400 MG TABLET PO SCH (09:01)
[2021-10-24] MEDS: LACTOBACILLUS RHAMNOSUS GG 1 CAPSULE. PO SCH (09:02)
[2021-10-24] MEDS: CETIRIZINE HCL 10 MG TABLET. PO SCH (09:02)
[2021-10-24] MEDS: ASPIRIN CHEWABLE 81 MG TABLET. PO SCH (09:02)
[2021-10-24] MEDS: PANTOPRAZOLE 40 MG TABLET.DR. PO SCH (09:02)
[2021-10-24] MEDS: DULoxetine HCL 30 MG CAPSULE.DR PO SCH (09:02)
[2021-10-24] MEDS: DEXAMETHASONE 4 MG TABLET PO SCH (09:02)
[2021-10-24] MEDS: hydroCHLOROthiazide 12.5 MG CAPSULE PO SCH (09:02)
[2021-10-24] MEDS: CALCIUM CARB/VIT D3 500/200 TABLET. PO SCH (09:03)
[2021-10-24] MEDS: POTASSIUM CHLORIDE 10 MEQ TABLET.ER. PO SCH (09:03)
[2021-10-24] MEDS: OMEGA-3 FATTY ACIDS/FISH OIL 1,000 MG CAPSULE. PO SCH (09:03)
[2021-10-24] MEDS: IPRATROPIUM/ALBUTEROL 20/100mcg/INH INHALER. INH SCH ×2 (09:05→12:04)
[2021-10-24] MEDS: METOPROLOL SUCC 24HR ER 100 MG TAB.ER.24H. PO SCH (09:11)
[2021-10-24 09:12] VITALS: BP 155/68
[2021-10-24] MEDS: ENOXAPARIN 40 MG/0.4 ML SYRINGE. SQ SCH (09:12)
[2021-10-24] MEDS: LOSARTAN POTASSIUM 50 MG TABLET. PO SCH (09:12)
[2021-10-24] MEDS ORDERED: LACT1CAP19 PO (09:16)
[2021-10-24] MEDS ORDERED: ENOX40DI3 SQ (09:16)
[2021-10-24] MEDS ORDERED: DEXA4TAB63 PO (09:16)
--- NOTE | 2021-10-24 09:19 | SNU/HH DC ---
DISCHARGE ORDERS DISCHARGE INFORMATION: FINAL DIAGNOSIS Problems Medical Problems: (1) COPD exacerbation Status: Acute (2) COVID-19 Status: Acute (3) Weakness Status: Acute CONDITION ON DISCHARGE: Stable HALF-WAY: SNF STAY <30 DAYS: Yes (With walker and supervision.) POST DISCHARGE ORDERS: ACTIVITY ORDERS: Activity as tolerated DIET AFTER DISCHARGE: Cardiac (ADA) OTHER ORDERS: Fall precautions CHECKS AFTER DISCHARGE: CHECKS AFTER DISCHARGE: Check blood press - daily, Check blood sugar, ac/hs FOLLOW-UP: PHYSICIAN FOLLOW-UP: Dr. Meron Rios in 1 week after discharge from [facility]. LAB ORDERS FOR FOLLOW-UP: CBC, CMP TREATMENT/EQUIPMENT ORDERS: ADAPTIVE EQUIPMENT NEEDED: None, Four wheeled walker RESPIRATORY EQUIPMENT NEEDED: Oxygen (2 L/min) Physical Therapy For: Evalulation/Treatment Occupational Therapy For: Evaluation/Treatment Speech Language Pathology For: Evaluation/Treatment DISCHARGE MEDICATIONS: Home Meds Reported Medications Cholecalciferol (Vitamin D3) (VITAMIN D) 2,000 Unit Capsule, 1 CAP PO DAILY, #30 CAP 3 Refills 12/24/14 Calcium Carbonate/Vitamin D3 (CALCIUM 500 + VIT D 400 TABLET) 1 Each Tablet, 1 EACH PO DAILY 12/24/14 Magnesium Oxide (MAGNESIUM) 250 Mg Tablet, 250 MG PO BID 12/24/14 [place]-3 Fatty Acids/Fish Oil (FISH OIL 1,000 MG CAPSULE) 1 Each Capsule, 2 EACH PO DAILY 12/24/14 Alprazolam (XANAX) 0.25 Mg Tablet, 1 TAB PO BID, #60 TAB 12/24/14 Potassium Chloride (POTASSIUM CHLORIDE ) 10 Meq Capsule.er, 10 MEQ PO DAILY, TAB.SR 05/16/14 Duloxetine Hcl (CYMBALTA) 60 Mg Capsule.dr, 60 MG PO DAILY, CAP 05/16/14 Metoprolol Succinate (METOPROLOL SUCCINATE ( XL )) 100 Mg Tab.er.24h, 100 MG PO DAILY for FOR HYPERTENSION, #30 TAB 0 Refills 05/16/14 Cetirizine Hcl (CETIRIZINE HCL) 10 Mg Tab.chew, 10 MG PO DAILY, TAB.CHEW 05/16/14 Hydrocodone Bit/Acetaminophen (HYDROCODONE-APAP 7.5-325 ) 1 Each Tablet, 1 TAB PO PRN Q6HRS PRN for PAIN, TAB 0 Refills 05/16/14 Simvastatin (SIMVASTATIN) 20 Mg Tablet, 20 MG PO DAILY for FOR CHOLESTEROL, #30 TAB 0 Refills 05/16/14 Fluticasone Propionate (FLONASE) 16 Gm [place].susp, 1 SPRAY NS DAILY PRN for NASAL CONGESTION, SPRAY 05/16/14 Losartan/Hydrochlorothiazide (LOSARTAN-HCTZ 100-12.5 MG TAB) 1 Each Tablet, 1 EACH PO DAILY, TAB 05/16/14 Pantoprazole Sodium (PROTONIX PACKET) 40 Mg Granpkt.dr, 40 MG PO DAILY, TAB 05/16/14 Albuterol Sulfate (VENTOLIN HFA INHALER) 18 Gm Hfa.aer.ad, 2 PUFF INH QID PRN for SHORTNESS OF BREATH, INHALER 0 Refills 05/16/14 Aspirin (ASPIRIN) 81 Mg Tab.chew, 81 MG PO DAILY, TAB.CHEW 05/16/14 Tiotropium [place] (SPIRIVA) 18 Mcg Cap.w.dev, 2 INH IH DAILY, #1 INH 0 Refills 05/16/14 MERON RISO MD Oct 24, 2021 09:19
[2021-10-24] MEDS ORDERED: MICAFUNGIN 100 MG in IV DEXTROSE 5% 100ML 100 ML IV SCH (10:00)
--- NOTE | 2021-10-24 10:18 | PDOC ---
IM PROGRESS NOTES- Subjective Subjective Patient complains of weakness and dry mouth. She is forgetful and not a good historian. Objective Vitals/I&O Vital Signs Date Time Temp Pulse Resp B/P (MAP) Pulse Ox O2 Delivery O2 Flow Rate FiO2 10/24/21 09:12 77 155/68 10/24/21 07:00 97.4 18 88 Nasal Cannula 2.0 97.4 I & O 10/23/21 10/23/21 10/24/21 15:00 23:00 07:00 Intake Total 50 ml 200 ml Balance 50 ml 200 ml Physical Exam Physical Exam General Appearance - alert and in no distress Chest - decreased breath sounds at bases Heart - S1 and S2 normal Abdomen - soft, non tender Neurological - alert and oriented Musculoskeletal - generalized weakness Extremities - no edema Has rash on her back. Labs Laboratory Tests Test 10/23/21 11:51 10/23/21 16:31 10/23/21 20:12 10/24/21 08:05 Glucose (Fingerstick) 101 mg/dL (70-99) H 164 mg/dL (70-99) H 210 mg/dL (70-99) H 68 mg/dL (70-99) L Assessment Assessment 1. COVID-19 pneumonia. 2. Sepsis with abnormal blood culture. 3. Acute on chronic respiratory failure. 4. Chronic obstructive pulmonary disease exacerbation. 5. Hypertension. 6. Diabetes mellitus type 2. 7. Peripheral artery disease. 8. Gastroesophageal reflux disease. 9. Hypothyroidism and high thyroid goiter. 10. History of hiatal hernia. 11. History of gastritis. 12. History of colon cancer and breast cancer. 13. Dementia. 14. Tremors. 15. Anxiety. 16. Depression. 17. Osteoarthritis and chronic pain. PLAN: FINAL ID= [STREPTOCOCCUS MITIS/ORALIS GRP]contamination PLAN: 1. COVID-[address] Dorsey. Oxygen requirements are going up to 4 L/min. On IV Decadron. 2. Possible sepsis with gram-positive rods with branching filaments. Consulted Dr. Meagan Sanz for Infectious Disease evaluation and management. The patient has been started on IV Zosyn and Bactrim DS. Blood culture from 10/15, 1 culture showed Staphylococcus mitis/paralysis. Likely contamination. Second blood culture from October 15 has been reported positive . ID pending. Blood cultures from October 17 are negative so far. Zosyn changed to Rocephin. 3. Diabetes mellitus type 2. Continue to monitor. 4. Hypertension, not controlled. We will order IV p.r.n. hydralazine. Blood pressure control is improving. Creatinine is 1.2 however BUN has increased to 38. Recheck labs in a.m. 5. Osteoarthritis. Continue pain medications. 6. Dementia with acute metabolic encephalopathy. Multifactorial. Discussed with staff. Hold Xanax this morning. For details, please refer to the orders. Long-term as well as short-term prognosis of this patient is very poor due to her multiple medical problems. Clinically improving slowly. IV antibiotics have been discontinued. Discussed with social insurance adviser. Consult custodial unit for further management. Transfer to custodial unit when accepted. Fungal infection-IV Diflucan given by Dr. Sanz. Plan Plan For more details regarding further plans, please refer to the orders. Justifications for Admission Other Justification MERON RIOS MD Oct 24, 2021 10:17
[2021-10-24] MEDS ORDERED: NYST15CR TP (10:20)
--- NOTE | 2021-10-24 10:38 | NUR ---
SW following. Discussed with RN, insurance approved transfer to [facility] SNF. Discharge orders faxed. Awaiting stretcher transportation from [facility]. Family and RN notified. SW will continue to follow.
[2021-10-24] MEDS: ALBUTEROL SULFATE 8GM INHALER. INH PRN ×2 (12:04→12:05)
--- NOTE | 2021-10-24 14:35 | NUR ---
Pt discharged for transfer to [facility]. Report called to Elizabeth, receiving nurse. Belongings from room including hearing aid in cup. Griddle Attendant's license in security, family notified, Breanna will be picking it up, security notified.
[2021-10-24] MEDS ORDERED: NYSTATIN 100,000 UNIT/GM TOPICAL CREAM 15GM TUBE. TP SCH (21:00)
== END 2021-10-24 14:35 | DRG 871 ==
LOC: ER 13:15 → ED HOLD 15:28 → 5 NORTH 18:56
PROVIDERS: ADMIT Internal Medicine; ATTEND Internal Medicine
DX: A41.89 Other specified sepsis (principal); U07.1 COVID-19; J12.82 Pneumonia due to coronavirus disease 2019; G92.9 Unspecified toxic encephalopathy; J96.21 Acute and chronic respiratory failure with hypoxia; D72.810 Lymphocytopenia; E03.9 Hypothyroidism, unspecified; E04.9 Nontoxic goiter, unspecified; E11.22 Type 2 diabetes mellitus with diabetic chronic kidney disease; E11.51 Type 2 diabetes mellitus with diabetic peripheral angiopathy without gangrene; E78.5 Hyperlipidemia, unspecified; F03.90 Unspecified dementia, unspecified severity, without behavioral disturbance, psychotic disturbance, mood disturbance, and anxiety; F32.A Depression, unspecified; F41.9 Anxiety disorder, unspecified; G89.29 Other chronic pain; I12.9 Hypertensive chronic kidney disease with stage 1 through stage 4 chronic kidney disease, or unspecified chronic kidney disease; J43.9 Emphysema, unspecified; K21.9 Gastro-esophageal reflux disease without esophagitis; M19.90 Unspecified osteoarthritis, unspecified site; N18.9 Chronic kidney disease, unspecified; Z80.1 Family history of malignant neoplasm of trachea, bronchus and lung; Z85.048 Personal history of other malignant neoplasm of rectum, rectosigmoid junction, and anus; Z85.3 Personal history of malignant neoplasm of breast; Z87.11 Personal history of peptic ulcer disease; Z87.891 Personal history of nicotine dependence; Z90.12 Acquired absence of left breast and nipple; Z90.49 Acquired absence of other specified parts of digestive tract; Z99.81 Dependence on supplemental oxygen; K57.90 Diverticulosis of intestine, part unspecified, without perforation or abscess without bleeding; Z88.8 Allergy status to other drugs, medicaments and biological substances; B95.4 Other streptococcus as the cause of diseases classified elsewhere; G83.9 Paralytic syndrome, unspecified; B95.7 Other staphylococcus as the cause of diseases classified elsewhere
CPT/HCPCS: 36415; 71045; 80048; 80053; 82962; 83605; 83735; 83880; 84484; 85007; 85025; 87040; 87077; 87205; 87426; 87804; 93005; 96374; J0360; J0696; J1100; J1650; J1815; J2248; J2543; J7060; 97530-GP; 97535-GO; 99285-25; G0378